=== PATIENT | male | born 1945 | race Caucasian/White ===

== ENCOUNTER 2020-07-15 13:40 | Observation (INO) | payer MEDICARE, BC ==
--- NOTE | 2020-07-15 14:16 | EDM.PDOC ---
ED HPI GENERAL MEDICAL PROBLEM - General Chief Complaint: General Stated Complaint: fall Time Seen by Provider: 07/15/20 13:58 Source of Information: Reports: EMS - History of Present Illness INITIAL COMMENTS - FREE TEXT/NARRATIVE: Pt states that he took his short acting insulin this morning and then he didn't eat as he became busy. He later drank a glass of juice. He then became weak and sat down and called his daughter to bring him a malt. He admits that he doesn't eat well. Daughter then called EMS. He denies falling. BS on scene was 53 when they arrived after drinking malt. glucose given and BS was 77. He does have long history of diabetes and cardiomyopathy. He denies any chest pain. When I arrived he states that he feels "great" Blood sugar now is 110. Heart rate is slightly tachycardia which he states is normal for him. Onset: Today Location: Reports: Generalized - Related Data Allergies Allergy/AdvReac Type Severity Reaction Status Date / Time propoxyphene HCl Allergy Cannot Verified 07/15/20 13:48 [From Angela] Remember Home Meds: Home Meds Allopurinol [Zyloprim] 100 mg PO DAILY 04/09/15 [History] Aspirin [Halfprin] 81 mg PO DAILY 04/09/15 [History] Carvedilol [Coreg] 25 mg PO BID 04/09/15 [History] Furosemide [Lasix] 40 mg PO DAILY 04/09/15 [History] Levothyroxine [Synthroid] 50 mcg PO DAILY 04/09/15 [History] Liraglutide [Victoza] 1.8 mg SUBCUT DAILY 04/09/15 [History] atorvaSTATin [Lipitor] 10 mg PO DAILY 04/09/15 [History] Benazepril/Hydrochlorothiazide [Lotensin Hct 20-25 mg Tablet] 0.5 tab PO DAILY 07/15/20 [History] Insulin Aspart [NovoLOG] 33 units SQ TIDMEALS 07/15/20 [History] Insulin Degludec [Tresiba] 80 mg SQ BEDTIME 07/15/20 [History] Past Medical History HEENT History: Reports: Impaired Vision Cardiovascular History: Reports: Cardiomyopathy, High Cholesterol, Hypertension Endocrine/Metabolic History: Reports: Diabetes, Type II, Hypothyroidism - Past Surgical History GI Surgical History: Reports: Hernia, Inguinal Social & Family History - Tobacco Use Smoking Status *Q: Never Smoker Second Hand Smoke Exposure: No - Caffeine Use Caffeine Use: Reports: Soda - Recreational Drug Use Recreational Drug Use: No - Living Situation & Occupation Living situation: Reports: , Alone Occupation: Retired ED ROS GENERAL - Review of Systems Review Of Systems: See Below Constitutional: Denies: Fever, Chills HEENT: Reports: No Symptoms Respiratory: Reports: No Symptoms Cardiovascular: Reports: No Symptoms GI/Abdominal: Reports: No Symptoms Musculoskeletal: Reports: No Symptoms Skin: Reports: No Symptoms Neurological: Reports: No Symptoms ED EXAM, GENERAL - Physical Exam Exam: See Below Exam Limited By: No Limitations General Appearance: Alert, WD/WN, No Apparent Distress Ears: Normal External Exam, Normal TMs Throat/Mouth: Normal Inspection, Normal Oropharynx Head: Atraumatic, Normocephalic Neck: Normal Inspection, Supple, Non-Tender Respiratory/Chest: No Respiratory Distress, Lungs Clear Cardiovascular: Regular Rate, Rhythm GI/Abdominal: Normal Bowel Sounds, Soft, Non-Tender Extremities: Normal Inspection, Normal Range of Motion Neurological: Alert, Oriented Skin Exam: Warm, Dry, Intact Course - Vital Signs Last Recorded V/S: Last Vital Signs Temp 97.7 F 07/15/20 13:44 Pulse 128 H 07/15/20 13:44 Resp 18 07/15/20 13:44 BP 102/58 L 07/15/20 13:44 Pulse Ox 93 L 07/15/20 13:44 - Orders/Labs/Meds Orders: Active Orders 24 hr Category Date Time Status C-REACTIVE PROTEIN [CHEM] Stat Lab 07/15/20 13:58 Received COMPREHENSIVE METABOLIC PN,CMP [CHEM] Stat Lab 07/15/20 13:58 Received CREATINE KINASE,CK [CHEM] Stat Lab 07/15/20 13:58 Received LACTATE DEHYDROGENASE,LDH [CHEM] Stat Lab 07/15/20 13:58 Received TROPONIN I [CHEM] Stat Lab 07/15/20 13:58 Received Labs: Laboratory Tests 07/15/20 Range/Units 13:58 WBC 11.7 H (5.0-10.0) 10^3/uL RBC 3.84 L (4.50-6.00) 10^6/uL Hgb 12.7 L (14.0-18.0) g/dL Hct 37.5 L (40.0-54.0) % MCV 97.7 H (82.0-94.0) fL MCH 33.1 H (27.0-32.0) pg MCHC 33.9 (33.0-38.0) g/dL RDW Coeff of Treva 15.0 (11.0-15.0) % Plt Count 152 (150-400) 10^3/uL Neut % (Auto) 71.6 (35-85) % Lymph % (Auto) 16.2 (10-55) % [place] % (Auto) 11.1 (0-16) % Eos % (Auto) 0.8 (0-5) % Baso % (Auto) 0.3 (0-3) % Neut # (Auto) 8.35 H (1.80-7.00) 10^3/uL Lymph # (Auto) 1.89 (1.00-4.80) 10^3/uL [place] # (Auto) 1.29 H (0.00-0.80) 10^3/uL Eos # (Auto) 0.09 (0.00-0.45) 10^3/uL Baso # (Auto) 0.03 10^3/uL - Re-Assessments/Exams Free Text/Narrative Re-Assessment/Exam: 07/15/20 14:[address] Augustin and he agrees with admit and above orders. Discussed labs with pt and he voices agreement with admission discussed pt with daughter and she states that he has not been eating well all week and has continued to take his insulin. States that this has been an ongoing issue that when they take him food he doesn't eat it. Departure - Departure Time of Disposition: 14:43 Disposition: Refer to Observation Condition: Fair Clinical Impression: Hypoglycemia due to insulin, Acute renal insufficiency - Discharge Information *PRESCRIPTION DRUG MONITORING PROGRAM REVIEWED*: Not Applicable *COPY OF PRESCRIPTION DRUG MONITORING REPORT IN PATIENT ELISABETH: Not Applicable Additional Instructions: consider meals on wheels to help with better diet when discharged. Sepsis Event Note (ED) - Evaluation Sepsis Screening Result: No Definite Risk - Focused Exam Vital Signs: Vital Signs Temp Pulse Resp BP Pulse Ox 07/15/20 13:44 97.7 F 128 H 18 102/58 L 93 L - Problem List & Annotations (1) Hypoglycemia due to insulin SNOMED Code(s): 670915393 Code(s): E16.0 - DRUG-INDUCED HYPOGLYCEMIA WITHOUT COMA; T38.3X5A - ADVERSE EFFECT OF INSULIN AND ORAL HYPOGLYCEMIC DRUGS, INIT Status: Acute Priority: High Current Visit: Yes (2) Acute renal insufficiency SNOMED Code(s): 159746920 Code(s): N28.9 - DISORDER OF KIDNEY AND URETER, UNSPECIFIED Status: Acute Priority: High Current Visit: Yes - Problem List Review Problem List Initiated/Reviewed/Updated: Yes - My Orders Last 24 Hours: My Active Orders 07/15/20 13:58 C-REACTIVE PROTEIN [CHEM] Stat COMPREHENSIVE METABOLIC PN,CMP [CHEM] Stat CREATINE KINASE,CK [CHEM] Stat LACTATE DEHYDROGENASE,LDH [CHEM] Stat TROPONIN I [CHEM] Stat - Assessment/Plan Admission H&P: Please use this note as an admission H&P Last 24 Hours: My Active Orders 07/15/20 13:58 C-REACTIVE PROTEIN [CHEM] Stat COMPREHENSIVE METABOLIC PN,CMP [CHEM] Stat CREATINE KINASE,CK [CHEM] Stat LACTATE DEHYDROGENASE,LDH [CHEM] Stat TROPONIN I [CHEM] Stat
[2020-07-15] MEDS ORDERED: Sodium Chloride 0.9% 1,000 ML IV SCH (14:45)
[2020-07-15] MEDS ORDERED: Sodium Chloride 0.9% 10 ML Syringe FLUSH PRN (14:45)
[2020-07-15] MEDS ORDERED: Enoxaparin 30 MG/0.3 ML Syringe SUBCUT SCH ×2 (14:45→20:00)
[2020-07-15] MEDS ORDERED: Acetaminophen 500 MG Tab PO PRN (16:07)
[2020-07-15] MEDS ORDERED: Dextrose 5%-0.45% NaCl 1,000 ML IV SCH (16:15)
[2020-07-15] MEDS ORDERED: INSULIN ASPART SQ SCH ×2 (17:30)
[2020-07-15] MEDS ORDERED: Insulin Lispro 100 Units/ML 3 ML Vial SUBCUT SCH (18:15)
[2020-07-15] MEDS ORDERED: CARVEDILOL 25 MG PO SCH (20:00)
[2020-07-15] MEDS ORDERED: INSULIN DEGLUDEC SQ SCH ×2 (20:00)
[2020-07-15] MEDS: CARVEDILOL 25 MG PO SCH (20:52)
[2020-07-16] MEDS ORDERED: 50% Dextrose in Water 50 ML Syringe IVPUSH ONE (07:35)
[2020-07-16] MEDS ORDERED: Sodium Chloride 0.9% 250 ML IV SCH (07:45)
[2020-07-16] MEDS ORDERED: Allopurinol 100 MG Tab **PT OWN MED PO SCH ×2 (08:00)
[2020-07-16] MEDS ORDERED: Levothyroxine 50 MCG Tab PO SCH (08:00)
[2020-07-16] MEDS ORDERED: Furosemide 20 MG Tab PO SCH (08:00)
[2020-07-16] MEDS ORDERED: Non-Formulary Medication 1 Each (Benazepril/Hydrochlorothiazide [Lotensin Hct 20-25 Mg Tab PO SCH (08:00)
[2020-07-16] MEDS ORDERED: LEVOTHYROXINE 50 MCG PO SCH (08:00)
[2020-07-16] MEDS ORDERED: Insulin Lispro 100 Units/ML 3 ML Vial SUBCUT SCH (08:00)
[2020-07-16] MEDS ORDERED: LIRAGLUTIDE SUBCUT SCH (08:00)
[2020-07-16] MEDS ORDERED: Aspirin 81 MG Tab.EC PO SCH ×2 (08:00→10:15)
[2020-07-16] MEDS ORDERED: Non-Formulary Medication 1 Each (Liraglutide [Victoza] 1.8 MG) SUBCUT SCH (08:00)
[2020-07-16] MEDS ORDERED: ATORVASTATIN 10 MG PO SCH ×3 (08:00→10:15)
[2020-07-16] MEDS ORDERED: FUROSEMIDE 40 MG PO SCH (08:00)
[2020-07-16 09:37] VITALS: BP 80/60; PULSE 125
[2020-07-16] MEDS: CARVEDILOL 25 MG PO SCH (10:00)
--- NOTE | 2020-07-16 13:10 | PCM.DCSUM1 ---
Discharge Summary - Hospital Course Free Text/Narrative:: Anton is 74 year old male who presented to ER with hypoglycemia. Patient had called his daughter as he noted a low blood sugar and wanted her to bring him a malt. Did drink it but blood sugar only improved to 57 so daughter called EMS. Patient as weak but upon time of arrival to ER, was feeling better. History of cardiomyopathy and diabetes. Tachycardic on arrival but patient had related that it "was normal for him". Was given glucagon per EMS and blood sugar was 110 on arrival. Family related that he had been taking his insulin all week and not eating well. Labs in ER noted high creatinine of 3.6, BUN 75. WBC mildly elevated 11.7. CRP 7.0. Admitted and started on IV fluids. Diagnosis: Stroke: No Modified [place] Scale: No Symptoms at All Modified Jacquie Scale Score: 0 - Discharge Data Discharge Date: 07/16/20 Discharge Disposition: DC/Tfer to Acute Hospital 02 Condition: Fair - Referral to Home Health Primary Care Physician: Jose Raul Augustin MD - Patient Summary/Data Complications: none Hospital Course: Patient feeling fair this am. Does admit to feeling short of breath with minimal exertion. Blood pressure has been running low since admission. Tachycardia persisted through the night. Was initially given IV fluid bolus and then it was reduced to 50 ml/hr. Oxygen sats have remained greater than 90% on room air. [place] [address]. This am, creatinine had worsened 3.9, [place] [address]. Contacted [facility] due to concerns with cardiogenic shock. Spoke with hospitalist and hoop maker. agreed to accept the patient in transfer. Patient in agreement with transfer. - Patient Instructions Diet: Diabetic Diet Activity: As Tolerated Other/Special Instructions: Transfer to [facility], Dr. Bryan - Discharge Plan *PRESCRIPTION DRUG MONITORING PROGRAM REVIEWED*: Not Applicable *COPY OF PRESCRIPTION DRUG MONITORING REPORT IN PATIENT ELISABETH: Not Applicable Home Medications: Home Meds Allopurinol [Zyloprim] 100 mg PO DAILY 04/09/15 [History] Aspirin [Halfprin] 81 mg PO DAILY 04/09/15 [History] Carvedilol [Coreg] 25 mg PO BID 04/09/15 [History] Furosemide [Lasix] 40 mg PO DAILY 04/09/15 [History] Levothyroxine [Synthroid] 50 mcg PO DAILY 04/09/15 [History] Liraglutide [Victoza] 1.8 mg SUBCUT DAILY 04/09/15 [History] atorvaSTATin [Lipitor] 10 mg PO DAILY 04/09/15 [History] Benazepril/Hydrochlorothiazide [Lotensin Hct 20-25 mg Tablet] 0.5 tab PO DAILY 07/15/20 [History] DULoxetine [Cymbalta] 30 mg PO DAILY 07/15/20 [History] Insulin Aspart [NovoLOG] 33 units SQ TIDMEALS 07/15/20 [History] Insulin Degludec [Tresiba] 80 mg SQ BEDTIME 07/15/20 [History] Losartan Potassium 25 mg PO DAILY 07/15/20 [History] Spironolactone [Aldactone] 25 mg PO DAILY 07/15/20 [History] Forms: ED Department Discharge Referrals: Jose Raul Augustin MD [Primary Care Provider] - - Discharge Summary/Plan Comment DC Time >30 min.: Yes Discharge Summary/Plan Comment: Discharge to [facility] Time for transfer agreement 20 minute Time with patient 10 minutes Time with transfer paperwork and documentation 10 minutes - General Info Date of Service: 07/19/20 Admission Dx/Problem (Free Text: Hypoglycemia Acute Kidney Injury Functional Status: Reports: Pain Controlled, Tolerating Diet, Ambulating - Review of Systems General: Reports: Weakness, Fatigue, Malaise HEENT: Reports: No Symptoms Pulmonary: Reports: Shortness of Breath. Denies: Cough Cardiovascular: Reports: Edema. Denies: Chest Pain, Lightheadedness Gastrointestinal: Reports: No Symptoms Genitourinary: Reports: No Symptoms Musculoskeletal: Reports: No Symptoms Skin: Reports: No Symptoms Neurological: Reports: Weakness - Patient Data Vitals - Most Recent: Last Vital Signs Temp 96.5 F L 07/16/20 08:00 Pulse 125 H 07/16/20 08:00 Resp 20 07/16/20 08:00 BP 80/60 L 07/16/20 08:00 Pulse Ox 94 L 07/16/20 08:00 Weight - Most Recent: 264 lb 6.4 oz I&O - Last 24 hours: Intake & Output 07/15/20 07/16/20 07/16/20 22:59 06:59 14:59 Intake Total 900 Output Total 200 Balance 900 -200 Lab Results - Last 24 hrs: Laboratory Results - last 24 hr 07/15/20 07/15/20 07/15/20 Range/Units 13:58 13:58 17:20 WBC 11.7 H (5.0-10.0) 10^3/uL RBC 3.84 L (4.50-6.00) 10^6/uL Hgb 12.7 L (14.0-18.0) g/dL Hct 37.5 L (40.0-54.0) % MCV 97.7 H (82.0-94.0) fL MCH 33.1 H (27.0-32.0) pg MCHC 33.9 (33.0-38.0) g/dL RDW Coeff of Treva 15.0 (11.0-15.0) % Plt Count 152 (150-400) 10^3/uL Neut % (Auto) 71.6 (35-85) % Lymph % (Auto) 16.2 (10-55) % [place] % (Auto) 11.1 (0-16) % Eos % (Auto) 0.8 (0-5) % Baso % (Auto) 0.3 (0-3) % Neut # (Auto) 8.35 H (1.80-7.00) 10^3/uL Lymph # (Auto) 1.89 (1.00-4.80) 10^3/uL [place] # (Auto) 1.29 H (0.00-0.80) 10^3/uL Eos # (Auto) 0.09 (0.00-0.45) 10^3/uL Baso # (Auto) 0.03 10^3/uL Sodium 134 L (136-145) mEq/L Potassium 4.4 (3.5-5.0) mEq/L Chloride 98 (98-106) mEq/L Carbon Dioxide 27 (21-32) mmol/L BUN 75 H* D (7-18) mg/dL Creatinine 3.6 H* D (0.7-1.3) mg/dL Est Cr Clr Drug Dosing 18.31 mL/min Estimated GFR (MDRD) 17 L (>=60) mL/min Glucose 79 (75-99) mg/dL POC Glucose 131 H (75-105) mg/dl Calcium 8.5 (8.4-10.1) mg/dL Total Bilirubin 1.0 (0.0-1.0) mg/dL AST 29 (15-37) U/L ALT 21 (12-78) U/L Alkaline Phosphatase 104 (46-116) U/L Lactate Dehydrogenase 205 H (100-190) U/L Creatine Kinase 50 (35-232) U/L Troponin I 0.282 H (0.00-0.06) ng/mL C-Reactive Protein 7.0 H (0.2-0.8) mg/dL NT-Pro-B Natriuret Pep (0-1000) pg/mL Total Protein 7.0 (6.4-8.2) g/dL Albumin 2.5 L (3.4-5.0) g/dL TSH, Ultra Sensitive (0.36-5.60) uIU/mL Urine Color (YELLOW) Urine Appearance (CLEAR) Urine pH (4.5-8.0) Ur Specific [place] (1.003-1.020) Urine Protein (NEGATIVE) mg/dL Urine Glucose (UA) (NEGATIVE) mg/dL Urine Ketones (NEGATIVE) mg/dL Urine Occult Blood (NEGATIVE) Urine Nitrite (NEGATIVE) Urine Bilirubin (NEGATIVE) Urine Urobilinogen (0.2-1.0) EU/dL Ur Leukocyte Esterase (NEGATIVE) Urine RBC (0-5) /HPF Urine WBC (0-5) /HPF 07/15/20 07/15/20 07/16/20 Range/Units 17:30 19:31 05:11 WBC 11.4 H (5.0-10.0) 10^3/uL RBC 4.02 L (4.50-6.00) 10^6/uL Hgb 13.0 L (14.0-18.0) g/dL Hct 39.1 L (40.0-54.0) % MCV 97.3 H (82.0-94.0) fL MCH 32.3 H (27.0-32.0) pg MCHC 33.2 (33.0-38.0) g/dL RDW Coeff of Treva 15.1 H (11.0-15.0) % Plt Count 182 (150-400) 10^3/uL Neut % (Auto) 66.5 (35-85) % Lymph % (Auto) 20.9 (10-55) % [place] % (Auto) 11.8 (0-16) % Eos % (Auto) 0.7 (0-5) % Baso % (Auto) 0.1 (0-3) % Neut # (Auto) 7.58 H (1.80-7.00) 10^3/uL Lymph # (Auto) 2.38 (1.00-4.80) 10^3/uL [place] # (Auto) 1.34 H (0.00-0.80) 10^3/uL Eos # (Auto) 0.08 (0.00-0.45) 10^3/uL Baso # (Auto) 0.01 10^3/uL Sodium (136-145) mEq/L Potassium (3.5-5.0) mEq/L Chloride (98-106) mEq/L Carbon Dioxide (21-32) mmol/L BUN (7-18) mg/dL Creatinine (0.7-1.3) mg/dL Est Cr Clr Drug Dosing mL/min Estimated GFR (MDRD) (>=60) mL/min Glucose (75-99) mg/dL POC Glucose 181 H (75-105) mg/dl Calcium (8.4-10.1) mg/dL Total Bilirubin (0.0-1.0) mg/dL AST (15-37) U/L ALT (12-78) U/L Alkaline Phosphatase (46-116) U/L Lactate Dehydrogenase 200 H (100-190) U/L Creatine Kinase 53 (35-232) U/L Troponin I 0.287 H (0.00-0.06) ng/mL C-Reactive Protein (0.2-0.8) mg/dL NT-Pro-B Natriuret Pep 40458 H (0-1000) pg/mL Total Protein (6.4-8.2) g/dL Albumin (3.4-5.0) g/dL TSH, Ultra Sensitive (0.36-5.60) uIU/mL Urine Color (YELLOW) Urine Appearance (CLEAR) Urine pH (4.5-8.0) Ur Specific [place] (1.003-1.020) Urine Protein (NEGATIVE) mg/dL Urine Glucose (UA) (NEGATIVE) mg/dL Urine Ketones (NEGATIVE) mg/dL Urine Occult Blood (NEGATIVE) Urine Nitrite (NEGATIVE) Urine Bilirubin (NEGATIVE) Urine Urobilinogen (0.2-1.0) EU/dL Ur Leukocyte Esterase (NEGATIVE) Urine RBC (0-5) /HPF Urine WBC (0-5) /HPF 07/16/20 07/16/20 07/16/20 Range/Units 05:11 06:46 07:14 WBC (5.0-10.0) 10^3/uL RBC (4.50-6.00) 10^6/uL Hgb (14.0-18.0) g/dL Hct (40.0-54.0) % MCV (82.0-94.0) fL MCH (27.0-32.0) pg MCHC (33.0-38.0) g/dL RDW Coeff of Treva (11.0-15.0) % Plt Count (150-400) 10^3/uL Neut % (Auto) (35-85) % Lymph % (Auto) (10-55) % [place] % (Auto) (0-16) % Eos % (Auto) (0-5) % Baso % (Auto) (0-3) % Neut # (Auto) (1.80-7.00) 10^3/uL Lymph # (Auto) (1.00-4.80) 10^3/uL [place] # (Auto) (0.00-0.80) 10^3/uL Eos # (Auto) (0.00-0.45) 10^3/uL Baso # (Auto) 10^3/uL Sodium 131 L (136-145) mEq/L Potassium 4.5 (3.5-5.0) mEq/L Chloride 97 L (98-106) mEq/L Carbon Dioxide 25 (21-32) mmol/L BUN 80 H* (7-18) mg/dL Creatinine 3.9 H* (0.7-1.3) mg/dL Est Cr Clr Drug Dosing 16.90 mL/min Estimated GFR (MDRD) 15 L (>=60) mL/min Glucose 46 L D (75-99) mg/dL POC Glucose 47 L* 57 L (75-105) mg/dl Calcium 8.2 L (8.4-10.1) mg/dL Total Bilirubin (0.0-1.0) mg/dL AST (15-37) U/L ALT (12-78) U/L Alkaline Phosphatase (46-116) U/L Lactate Dehydrogenase 261 H (100-190) U/L Creatine Kinase 62 (35-232) U/L Troponin I 0.274 H (0.00-0.06) ng/mL C-Reactive Protein (0.2-0.8) mg/dL NT-Pro-B Natriuret Pep 99961 H (0-1000) pg/mL Total Protein (6.4-8.2) g/dL Albumin (3.4-5.0) g/dL TSH, Ultra Sensitive 1.50 (0.36-5.60) uIU/mL Urine Color (YELLOW) Urine Appearance (CLEAR) Urine pH (4.5-8.0) Ur Specific [place] (1.003-1.020) Urine Protein (NEGATIVE) mg/dL Urine Glucose (UA) (NEGATIVE) mg/dL Urine Ketones (NEGATIVE) mg/dL Urine Occult Blood (NEGATIVE) Urine Nitrite (NEGATIVE) Urine Bilirubin (NEGATIVE) Urine Urobilinogen (0.2-1.0) EU/dL Ur Leukocyte Esterase (NEGATIVE) Urine RBC (0-5) /HPF Urine WBC (0-5) /HPF 07/16/20 07/16/20 07/16/20 Range/Units 07:55 08:03 10:07 WBC (5.0-10.0) 10^3/uL RBC (4.50-6.00) 10^6/uL Hgb (14.0-18.0) g/dL Hct (40.0-54.0) % MCV (82.0-94.0) fL MCH (27.0-32.0) pg MCHC (33.0-38.0) g/dL RDW Coeff of Treva (11.0-15.0) % Plt Count (150-400) 10^3/uL Neut % (Auto) (35-85) % Lymph % (Auto) (10-55) % [place] % (Auto) (0-16) % Eos % (Auto) (0-5) % Baso % (Auto) (0-3) % Neut # (Auto) (1.80-7.00) 10^3/uL Lymph # (Auto) (1.00-4.80) 10^3/uL [place] # (Auto) (0.00-0.80) 10^3/uL Eos # (Auto) (0.00-0.45) 10^3/uL Baso # (Auto) 10^3/uL Sodium (136-145) mEq/L Potassium (3.5-5.0) mEq/L Chloride (98-106) mEq/L Carbon Dioxide (21-32) mmol/L BUN (7-18) mg/dL Creatinine (0.7-1.3) mg/dL Est Cr Clr Drug Dosing mL/min Estimated GFR (MDRD) (>=60) mL/min Glucose (75-99) mg/dL POC Glucose 98 139 H (75-105) mg/dl Calcium (8.4-10.1) mg/dL Total Bilirubin (0.0-1.0) mg/dL AST (15-37) U/L ALT (12-78) U/L Alkaline Phosphatase (46-116) U/L Lactate Dehydrogenase (100-190) U/L Creatine Kinase (35-232) U/L Troponin I (0.00-0.06) ng/mL C-Reactive Protein (0.2-0.8) mg/dL NT-Pro-B Natriuret Pep (0-1000) pg/mL Total Protein (6.4-8.2) g/dL Albumin (3.4-5.0) g/dL TSH, Ultra Sensitive (0.36-5.60) uIU/mL Urine Color Yellow (YELLOW) Urine Appearance Clear (CLEAR) Urine pH 5.0 (4.5-8.0) Ur Specific [place] 1.025 H (1.003-1.020) Urine Protein Trace H (NEGATIVE) mg/dL Urine Glucose (UA) Negative (NEGATIVE) mg/dL Urine Ketones Negative (NEGATIVE) mg/dL Urine Occult Blood Negative (NEGATIVE) Urine Nitrite Negative (NEGATIVE) Urine Bilirubin Negative (NEGATIVE) Urine Urobilinogen 0.2 (0.2-1.0) EU/dL Ur Leukocyte Esterase Negative (NEGATIVE) Urine RBC Not seen (0-5) /HPF Urine WBC Not seen (0-5) /HPF Med Orders - Current: Current Medications Discontinued Medications Acetaminophen (Tylenol Extra Strength) 1,000 mg PO Q6H PRN PRN Reason: Pain Last Admin: 07/15/20 16:15 Dose: 1,000 mg Documented by: Allopurinol (Zyloprim) 100 mg PO DAILY [facility] Aspirin (Halfprin) 81 mg PO DAILY [facility] Last Admin: 07/16/20 09:59 Dose: 81 mg Documented by: Aspirin (Halfprin) 81 mg PO DAILY [facility] Last Admin: 07/16/20 10:37 Dose: 81 mg Documented by: Atorvastatin Calcium (Lipitor) 10 mg PO DAILY [facility] Atorvastatin Calcium (Lipitor) 10 mg PO DAILY [facility] Last Admin: 07/16/20 10:00 Dose: 10 mg Documented by: Atorvastatin Calcium (Lipitor) 10 mg PO DAILY [facility] Last Admin: 07/16/20 10:37 Dose: 10 mg Documented by: Dextrose/Water (Dextrose 50% In Water) 50 ml IVPUSH ONETIME ONE Stop: 07/16/20 07:36 Last Admin: 07/16/20 07:56 Dose: 50 ml Documented by: Enoxaparin Sodium (Lovenox) 30 mg SUBCUT Q24H [facility] Last Admin: 07/15/20 19:07 Dose: Not Given Documented by: Enoxaparin Sodium (Lovenox) 30 mg SUBCUT Q24H [facility] Last Admin: 07/15/20 20:52 Dose: 30 mg Documented by: Furosemide (Lasix) 40 mg PO DAILY [facility] Sodium Chloride (Normal Saline) 1,000 mls @ 350 mls/hr IV ASDIRECTED [facility] Dextrose/Sodium Chloride (Dextrose 5%-1/2 Ns) 1,000 mls @ 50 mls/hr IV ASDIRECTED [facility] Last Admin: 07/15/20 16:44 Dose: 100 mls/hr Documented by: Sodium Chloride (Normal Saline) 250 mls @ 999 mls/hr IV ASDIRECTED [facility] Stop: 07/16/20 08:01 Last Admin: 07/16/20 07:56 Dose: 999 mls/hr Documented by: Insulin Human Lispro (Humalog) 33 unit SUBCUT TIDMEALS [facility] Last Admin: 07/15/20 18:12 Dose: 33 units Documented by: Insulin Human Lispro (Humalog) 0 unit SUBCUT TIDMEALS [facility]; Protocol Last Admin: 07/16/20 10:00 Dose: Not Given Documented by: Levothyroxine Sodium (Synthroid) 50 mcg PO DAILY [facility] Non-Formulary Medication (Benazepril/Hydrochlorothiazide [Lotensin Hct 20-25 Mg Tablet]) 0.5 tab PO DAILY [facility] Carvedilol [Coreg] (25 Mg Ptom) 0 mg PO BID [facility] Non-Formulary Medication (Insulin Aspart [Novolog]) 33 units SQ TIDMEALS [facility] Non-Formulary Medication (Insulin Degludec [Tresiba]) 80 mg SQ BEDTIME [facility] Non-Formulary Medication (Liraglutide [Victoza]) 1.8 mg SUBCUT DAILY [facility] Allopurinol 100 Mg (Tab Pt Own Med) 0 each PO DAILY [facility] Furosemide 40mg Tab (Ptom) 0 each PO DAILY [facility] Last Admin: 07/16/20 10:02 Dose: Not Given Documented by: Carvedilol [Coreg] (25 Mg Ptom) 0 mg PO BID [facility] Last Admin: 07/16/20 10:00 Dose: Not Given Documented by: Levothyroxine 50 Mcg (Tab Ptom) 0 each PO DAILY [facility] Last Admin: 07/16/20 10:00 Dose: 1 each Documented by: Insulin Aspart [ Novolog] 33 Units Ptom 0 units SQ TIDMEALS [facility] Last Admin: 07/15/20 19:07 Dose: Not Given Documented by: Non-Formulary Medication (Liraglutide [Victoza]) 0 mg SUBCUT DAILY [facility] Last Admin: 07/16/20 10:01 Dose: Not Given Documented by: Insulin Degludec [ Tresiba] 80 Mg Ptom 0 mg SQ BEDTIME [facility] Last Admin: 07/15/20 20:49 Dose: Not Given Documented by: Levothyroxine 50 Mcg (Tab Ptom) 0 each PO DAILY [facility] Last Admin: 07/16/20 10:38 Dose: 50 each Documented by: Sodium Chloride (Saline Flush) 10 ml FLUSH ASDIRECTED PRN PRN Reason: Keep Vein Open - Exam General: Reports: Alert, Oriented HEENT: Reports: Mucous Membr. Moist/[place] Neck: Reports: Supple Lungs: Reports: Decreased Breath Sounds Cardiovascular: Reports: Regular Rate, Regular Rhythm GI/Abdominal Exam: Normal Bowel Sounds, Soft, Non-Tender Extremities: Normal Inspection Skin: Reports: Warm, Dry Neurological: Reports: No New Focal Deficit
[2020-07-17] MEDS ORDERED: LEVOTHYROXINE 50 MCG PO SCH (08:00)
== END 2020-07-16 10:45 ==
LOC: CC.ED 13:40 → CC.MS 14:40 → UNDOADMOB 14:40 → CC.MS 14:45
PROVIDERS: ADMIT Physician Assistant Medical; ATTEND Family Medicine
DX: E11.649 Type 2 diabetes mellitus with hypoglycemia without coma (principal); T38.3X5A Adverse effect of insulin and oral hypoglycemic [antidiabetic] drugs, initial encounter; N28.9 Disorder of kidney and ureter, unspecified; E03.9 Hypothyroidism, unspecified; E78.00 Pure hypercholesterolemia, unspecified; I10 Essential (primary) hypertension; Z20.828 Contact with and (suspected) exposure to other viral communicable diseases; Z79.890 Hormone replacement therapy; Z79.899 Other long term (current) drug therapy; Z79.4 Long term (current) use of insulin; Z79.82 Long term (current) use of aspirin
CPT/HCPCS: 36415; 51702; 71046; 80048; 80053; 81001; 82550; 82962; 83615; 83880; 84443; 84484; 85025; 86140; 93005; 93306; 99285-25; A9270-GY; J1650; J7042; J7050

== ENCOUNTER 2020-07-29 11:27 | Inpatient (IN) | payer MEDICARE, BC ==
[2020-07-29] MEDS ORDERED: Acetaminophen 325 MG Tab PO PRN (16:51)
--- NOTE | 2020-07-29 17:34 | PCM.HP.2 ---
H&P History of Present Illness - General Date of Service: 07/29/20 Admit Problem/Dx: Admission Diagnosis/Problem Admission Diagnosis/Problem CHF, Congestive heart failure DM s/p stroke CKD Source of Information: Patient, Other (records from [place]) History Limitations: Reports: No Limitations - History of Present Illness Initial Comments - Free Text/Narative: Pt initially was admitted to our facility and then transferred to [facility] and was in CHF, cardiogenic shock. He was intubated at one time and then felt to have a stroke. He has diabetic neuropathy and CKD. He was diuresed while there. He also had new onset a fib with RVR that did not convert with metoprolol so was then cardioverted on the day prior to coming back to [facility] bed. He is currently on amiodarone and digoxin to maintain his NSR. He had difficulty with BS control and has had insulin adjustment and significant decreases in doses. When arriving here he does have an open sore in the left groin. Onset of Symptoms: Reports: Gradual Duration of Symptoms: Reports: Chronic - Related Data Allergies/Adverse Reactions: Allergies Allergy/AdvReac Type Severity Reaction Status Date / Time propoxyphene HCl Allergy Cannot Verified 07/29/20 12:07 [From Angela] Remember Home Medications: Home Meds Allopurinol [Zyloprim] 100 mg PO DAILY 04/09/15 [History] Aspirin [Halfprin] 81 mg PO DAILY 04/09/15 [History] Furosemide [Lasix] 40 mg PO DAILY 04/09/15 [History] Levothyroxine [Synthroid] 50 mcg PO DAILY 04/09/15 [History] Liraglutide [Victoza] 1.8 mg SUBCUT DAILY 04/09/15 [History] atorvaSTATin [Lipitor] 10 mg PO DAILY 04/09/15 [History] Insulin Aspart [NovoLOG] 33 units SQ TIDMEALS 07/15/20 [History] Insulin Degludec [Tresiba] 80 mg SQ BEDTIME 07/15/20 [History] Calcium Carb/D3/Magnesium/Zinc [Negrito Mag Zinc + D3] 1 tab PO DAILY 07/29/20 [History] Cholecalciferol (Vitamin D3) [Vitamin D3] 5,000 unit PO DAILY 07/29/20 [History] Multivitamin [Daily Multiple Vitamin] 1 each PO DAILY 07/29/20 [History] Vitamin E 400 unit PO DAILY 07/29/20 [History] Past Medical History HEENT History: Reports: Impaired Vision Cardiovascular History: Reports: CAD, Cardiomyopathy, High Cholesterol, Hypertension Respiratory History: Reports: SOB Gastrointestinal History: Reports: None Genitourinary History: Reports: Other (See Below) Other Genitourinary History: difficulty with urination Psychiatric History: Reports: None Endocrine/Metabolic History: Reports: Diabetes, Type II, Hypothyroidism Hematologic History: Reports: None Immunologic History: Reports: None - Past Surgical History HEENT Surgical History: Reports: None Cardiovascular Surgical History: Reports: Other (See Below) Other Cardiovascular Surgeries/Procedures: cardioversion on 07/28/20 GI Surgical History: Reports: Hernia, Inguinal Social & Family History - Tobacco Use Smoking Status *Q: Never Smoker - Caffeine Use Caffeine Use: Reports: None - Recreational Drug Use Recreational Drug Use: No - Living Situation & Occupation Living situation: Reports: , Alone Occupation: Retired H&P Review of Systems - Review of Systems: Review Of Systems: See Below General: Reports: Weakness. Denies: Fever, Chills HEENT: Reports: No Symptoms Pulmonary: Reports: Shortness of Breath Cardiovascular: Reports: Edema (has had and he states that it comes and goes.). Denies: Chest Pain Gastrointestinal: Reports: Stool Incontinence. Denies: Abdominal Pain Genitourinary: Reports: Incontinence Musculoskeletal: Reports: Other (uses alex lift at this time.) Skin: Reports: Wound (left groin) Neurological: Reports: Weakness Exam - Exam Exam: See Below - Vital Signs Vital Signs: Last Vital Signs Temp 97.9 F 07/29/20 16:37 Pulse 97 07/29/20 16:37 Resp 18 07/29/20 16:37 BP 121/69 07/29/20 16:37 Pulse Ox 96 07/29/20 16:37 Weight: 252 lb 6.4 oz - Exam General: Alert, Oriented, Cooperative HEENT: Hearing Intact, Pupils Equal, Pupils Reactive Neck: Supple, Trachea Midline Lungs: Clear to Auscultation, Normal Respiratory Effort, Decreased Breath Sounds (to the bases) Cardiovascular: Regular Rhythm, Other (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 No bleeding noted. Culture is obtained.) Neurological: Cranial Nerves Intact Neuro Extensive - Mental Status: Alert, Oriented x3, Normal Mood/Affect, Normal Cognition Neuro Extensive - Motor, Sensory, Reflexes: CN II-XII Intact Psychiatric: Alert, Normal Affect, Normal Mood Sepsis Event Note - Evaluation Sepsis Screening Result: No Definite Risk - Focused Exam Vital Signs: Vital Signs Temp Pulse Resp BP Pulse Ox 07/29/20 16:37 97.9 F 97 18 121/69 96 - Problem List (1) Acute on chronic systolic (congestive) heart failure SNOMED Code(s): 514228924, 020835825 ICD Code: I50.23 - ACUTE ON CHRONIC SYSTOLIC (CONGESTIVE) HEART FAILURE Status: Acute Priority: High Current Visit: Yes (2) Acute on chronic diastolic (congestive) heart failure SNOMED Code(s): 430467429, 124736974 ICD Code: I50.33 - ACUTE ON CHRONIC DIASTOLIC (CONGESTIVE) HEART FAILURE Status: Acute Priority: High Current Visit: Yes (3) Diabetes type 2, uncontrolled SNOMED Code(s): 427008756, 595546764 ICD Code: E11.65 - TYPE 2 DIABETES MELLITUS WITH HYPERGLYCEMIA Status: Chronic Priority: Low Current Visit: Yes Qualifiers: Coma presence: without coma (4) CKD (chronic kidney disease) stage 3, GFR 30-59 ml/min SNOMED Code(s): 304601988 ICD Code: N18.3 - CHRONIC KIDNEY DISEASE, STAGE 3 (MODERATE) Status: Chronic Priority: Medium Current Visit: Yes (5) Gout SNOMED Code(s): 10403261 ICD Code: M10.9 - GOUT, UNSPECIFIED Status: Chronic Priority: Low Current Visit: Yes (6) Depression SNOMED Code(s): 66920010 ICD Code: F32.9 - MAJOR DEPRESSIVE DISORDER, SINGLE EPISODE, UNSPECIFIED Status: Chronic Priority: Low Current Visit: Yes (7) Hypothyroidism SNOMED Code(s): 25736366 ICD Code: E03.9 - HYPOTHYROIDISM, UNSPECIFIED Status: Chronic Priority: L ow Current Visit: Yes (8) Hyperlipidemia SNOMED Code(s): 63526266 ICD Code: E78.5 - HYPERLIPIDEMIA, UNSPECIFIED Status: Chronic Priority: Low Current Visit: Yes (9) CAD (coronary artery disease) SNOMED Code(s): 10367746 ICD Code: I25.10 - ATHSCL HEART DISEASE OF [place] CORONARY ARTERY W/O ANG PCTRS Status: Chronic Priority: Medium Current Visit: Yes Problem List Initiated/Reviewed/Updated: Yes Orders Last 24hrs: Active Orders 24 hr Category Date Time Status Patient Status [ADT] Routine ADT 07/29/20 16:37 Active Blood Glucose Check, Bedside [RC] 0730,1130,1700,2100 Care 07/29/20 16:37 Active Cardiac Monitoring [RC] 08,1999 Care 07/29/20 16:39 Active Height and Weight [RC] 0500 Care 07/29/20 16:37 Active Oxygen Therapy [RC] .PRN Care 07/29/20 16:37 Active Up With Assistance [RC] .PRN Care 07/29/20 16:37 Active Up to Chair [RC] .PRN Care 07/29/20 16:37 Active Vital Signs [RC] 08,1999 Care 07/29/20 16:37 Active PT Evaluation and Treatment [CONS] Routine Cons 07/29/20 16:37 Active Consistent Carbohydrate Diet [DIET] Diet 07/29/20 Dinner Active CBC WITH AUTO DIFF [HEME] AM Lab 07/30/20 05:11 Ordered COMPREHENSIVE METABOLIC PN,CMP [CHEM] AM Lab 07/30/20 05:11 Ordered CULTURE WOUND [RM] Stat Lab 07/29/20 16:58 Received Acetaminophen [TylenoL] Med 07/29/20 16:51 Ordered 650 mg PO Q4H PRN Amiodarone [Cordarone] Med 07/30/20 08:00 Ordered 200 mg PO DAILY Apixaban [Eliquis] Med 07/29/20 20:00 Ordered 5 mg PO BID Aspirin [Halfprin] Med 07/30/20 08:00 Ordered 81 mg PO DAILY Digoxin [Lanoxin] Med 07/30/20 12:00 Ordered 125 mcg PO DAILY@1200 Furosemide [Lasix] Med 07/30/20 08:00 Ordered 40 mg PO DAILY Insulin Glarg,Human.Rec.Analog [LantUS] Med 07/29/20 20:00 Ordered 5 unit SUBCUT BID Insulin Lispro [HumaLOG] Med 07/29/20 17:30 Ordered See Protocol SUBCUT TIDMEALS Levothyroxine [Synthroid] Med 07/30/20 08:00 Ordered 50 mcg PO DAILY allopurinoL [Zyloprim] Med 07/30/20 08:00 Ordered 100 mg PO DAILY atorvaSTATin [Lipitor] Med 07/30/20 08:00 Ordered 10 mg PO DAILY Resuscitation Status Routine Resus Stat 07/29/20 16:37 Ordered Medication Orders Acetaminophen (Tylenol) 650 mg PO Q4H PRN PRN Reason: Pain Allopurinol (Zyloprim) 100 mg PO DAILY MINO Amiodarone HCl (Cordarone) 200 mg PO DAILY MINO Apixaban (Eliquis) 5 mg PO BID MINO Aspirin (Halfprin) 81 mg PO DAILY MINO Atorvastatin Calcium (Lipitor) 10 mg PO DAILY MINO Digoxin (Lanoxin) 125 mcg PO DAILY@1200 MINO Furosemide (Lasix) 40 mg PO DAILY MINO Insulin Glargine (Lantus) 5 unit SUBCUT BID MINO Insulin Human Lispro (Humalog) 0 unit SUBCUT TIDMEALS MINO; Protocol Levothyroxine Sodium (Synthroid) 50 mcg PO DAILY MINO Assessment/Plan Comment:: plan to admit to swing bed and PT for strengthening.
[2020-07-29] MEDS: Insulin Lispro 100 Units/ML 3 ML Vial SUBCUT SCH (17:51)
[2020-07-29] MEDS: Insulin Glarg,Human.Rec.Analog 100 Unit/ML SUBCUT SCH (20:03)
[2020-07-29] MEDS: Apixaban 5 MG Tab PO SCH (20:03)
[2020-07-30] MEDS: atorvaSTATin 10 MG Tab PO SCH (07:35)
[2020-07-30] MEDS: Aspirin 81 MG Tab.EC PO SCH (07:35)
[2020-07-30] MEDS: Furosemide 40 MG Tab PO SCH (07:36)
[2020-07-30] MEDS: Levothyroxine 50 MCG Tab PO SCH (07:36)
[2020-07-30] MEDS: Apixaban 5 MG Tab PO SCH ×2 (07:36→19:47)
[2020-07-30] MEDS: Allopurinol 100 MG Tab PO SCH (07:36)
[2020-07-30] MEDS: Amiodarone 200 MG Tab PO SCH (07:36)
[2020-07-30] MEDS: Insulin Glarg,Human.Rec.Analog 100 Unit/ML SUBCUT SCH ×2 (08:07→19:56)
[2020-07-30] MEDS: Insulin Lispro 100 Units/ML 3 ML Vial SUBCUT SCH ×3 (08:09→17:22)
[2020-07-30] MEDS: Digoxin 125 MCG Tab PO SCH (11:42)
[2020-07-30] MEDS ORDERED: Loperamide 2 MG Cap PO ONE (17:28)
[2020-07-30] MEDS ORDERED: Loperamide 2 MG Cap PO PRN (17:56)
[2020-07-31] MEDS: Aspirin 81 MG Tab.EC PO SCH (07:51)
[2020-07-31] MEDS: Levothyroxine 50 MCG Tab PO SCH (07:51)
[2020-07-31] MEDS: Amiodarone 200 MG Tab PO SCH (07:51)
[2020-07-31] MEDS: Furosemide 40 MG Tab PO SCH (07:51)
[2020-07-31] MEDS: atorvaSTATin 10 MG Tab PO SCH (07:52)
[2020-07-31] MEDS: Apixaban 5 MG Tab PO SCH ×2 (07:52→19:54)
[2020-07-31] MEDS: Allopurinol 100 MG Tab PO SCH (07:52)
[2020-07-31] MEDS: Insulin Glarg,Human.Rec.Analog 100 Unit/ML SUBCUT SCH ×2 (07:53→19:57)
[2020-07-31] MEDS: Insulin Lispro 100 Units/ML 3 ML Vial SUBCUT SCH ×3 (07:54→17:14)
[2020-07-31] MEDS: Digoxin 125 MCG Tab PO SCH (12:29)
[2020-07-31] MEDS: Loperamide 2 MG Cap PO PRN ×2 (14:59→15:58)
[2020-08-01] MEDS: Aspirin 81 MG Tab.EC PO SCH (07:58)
[2020-08-01] MEDS: Furosemide 40 MG Tab PO SCH (07:59)
[2020-08-01] MEDS: Amiodarone 200 MG Tab PO SCH (07:59)
[2020-08-01] MEDS: Levothyroxine 50 MCG Tab PO SCH (07:59)
[2020-08-01] MEDS: Apixaban 5 MG Tab PO SCH ×2 (08:00→19:28)
[2020-08-01] MEDS: atorvaSTATin 10 MG Tab PO SCH (08:00)
[2020-08-01] MEDS: Allopurinol 100 MG Tab PO SCH (08:00)
[2020-08-01] MEDS: Insulin Glarg,Human.Rec.Analog 100 Unit/ML SUBCUT SCH ×2 (08:01→19:46)
[2020-08-01] MEDS: Insulin Lispro 100 Units/ML 3 ML Vial SUBCUT SCH ×3 (08:02→17:12)
[2020-08-01] MEDS: Digoxin 125 MCG Tab PO SCH (11:38)
[2020-08-01] MEDS: Loperamide 2 MG Cap PO PRN (17:51)
[2020-08-01] MEDS: Oxyquinoline/Emollient 0.3% Oint 1 OZ Canister TOP PRN (19:43)
[2020-08-02] MEDS: Furosemide 40 MG Tab PO SCH (07:29)
[2020-08-02] MEDS: Apixaban 5 MG Tab PO SCH ×2 (07:29→19:33)
[2020-08-02] MEDS: Levothyroxine 50 MCG Tab PO SCH (07:30)
[2020-08-02] MEDS: Amiodarone 200 MG Tab PO SCH (07:30)
[2020-08-02] MEDS: Aspirin 81 MG Tab.EC PO SCH (07:31)
[2020-08-02] MEDS: atorvaSTATin 10 MG Tab PO SCH (07:31)
[2020-08-02] MEDS: Allopurinol 100 MG Tab PO SCH (07:33)
[2020-08-02] MEDS: Insulin Glarg,Human.Rec.Analog 100 Unit/ML SUBCUT SCH ×2 (07:41→19:34)
[2020-08-02] MEDS: Insulin Lispro 100 Units/ML 3 ML Vial SUBCUT SCH ×3 (07:42→17:08)
[2020-08-02] MEDS: Digoxin 125 MCG Tab PO SCH (11:37)
[2020-08-02] MEDS: Loperamide 2 MG Cap PO PRN (19:37)
[2020-08-03] MEDS: Aspirin 81 MG Tab.EC PO SCH (08:15)
[2020-08-03] MEDS: Apixaban 5 MG Tab PO SCH ×2 (08:16→20:06)
[2020-08-03] MEDS: Furosemide 40 MG Tab PO SCH (08:16)
[2020-08-03] MEDS: Allopurinol 100 MG Tab PO SCH (08:17)
[2020-08-03] MEDS: Amiodarone 200 MG Tab PO SCH (08:17)
[2020-08-03] MEDS: Levothyroxine 50 MCG Tab PO SCH (08:17)
[2020-08-03] MEDS: atorvaSTATin 10 MG Tab PO SCH (08:17)
[2020-08-03] MEDS: Insulin Lispro 100 Units/ML 3 ML Vial SUBCUT SCH ×3 (08:19→17:41)
[2020-08-03] MEDS: Insulin Glarg,Human.Rec.Analog 100 Unit/ML SUBCUT SCH ×2 (08:21→20:06)
[2020-08-03] MEDS ORDERED: Insulin Glarg,Human.Rec.Analog 100 Unit/ML SUBCUT SCH (13:06)
[2020-08-03] MEDS: Digoxin 125 MCG Tab PO SCH (14:01)
[2020-08-04] MEDS: Aspirin 81 MG Tab.EC PO SCH (07:41)
[2020-08-04] MEDS: Apixaban 5 MG Tab PO SCH ×2 (07:42→19:32)
[2020-08-04] MEDS: Levothyroxine 50 MCG Tab PO SCH (07:42)
[2020-08-04] MEDS: Furosemide 40 MG Tab PO SCH (07:42)
[2020-08-04] MEDS: Allopurinol 100 MG Tab PO SCH (07:42)
[2020-08-04] MEDS: atorvaSTATin 10 MG Tab PO SCH (07:43)
[2020-08-04] MEDS: Amiodarone 200 MG Tab PO SCH (07:43)
[2020-08-04] MEDS: Insulin Glarg,Human.Rec.Analog 100 Unit/ML SUBCUT SCH ×2 (07:55→19:33)
[2020-08-04] MEDS: Insulin Lispro 100 Units/ML 3 ML Vial SUBCUT SCH ×3 (07:58→17:05)
[2020-08-04] MEDS: Digoxin 125 MCG Tab PO SCH (11:47)
[2020-08-04] MEDS: Fluconazole 100 MG Tab PO SCH (13:15)
[2020-08-05] MEDS: Amiodarone 200 MG Tab PO SCH (07:57)
[2020-08-05] MEDS: Furosemide 40 MG Tab PO SCH (07:57)
[2020-08-05] MEDS: Allopurinol 100 MG Tab PO SCH (07:57)
[2020-08-05] MEDS: Levothyroxine 50 MCG Tab PO SCH (07:57)
[2020-08-05] MEDS: atorvaSTATin 10 MG Tab PO SCH (07:57)
[2020-08-05] MEDS: Aspirin 81 MG Tab.EC PO SCH (07:57)
[2020-08-05] MEDS: Fluconazole 100 MG Tab PO SCH (07:57)
[2020-08-05] MEDS: Apixaban 5 MG Tab PO SCH ×2 (07:57→19:25)
[2020-08-05] MEDS: Insulin Glarg,Human.Rec.Analog 100 Unit/ML SUBCUT SCH ×2 (07:58→19:26)
[2020-08-05] MEDS: Insulin Lispro 100 Units/ML 3 ML Vial SUBCUT SCH ×3 (07:59→17:19)
[2020-08-05] MEDS: Digoxin 125 MCG Tab PO SCH (11:43)
[2020-08-06] MEDS: atorvaSTATin 10 MG Tab PO SCH (08:11)
[2020-08-06] MEDS: Aspirin 81 MG Tab.EC PO SCH (08:12)
[2020-08-06] MEDS: Allopurinol 100 MG Tab PO SCH (08:12)
[2020-08-06] MEDS: Amiodarone 200 MG Tab PO SCH (08:12)
[2020-08-06] MEDS: Levothyroxine 50 MCG Tab PO SCH (08:12)
[2020-08-06] MEDS: Furosemide 40 MG Tab PO SCH (08:12)
[2020-08-06] MEDS: Apixaban 5 MG Tab PO SCH ×2 (08:13→19:22)
[2020-08-06] MEDS: Insulin Lispro 100 Units/ML 3 ML Vial SUBCUT SCH ×3 (08:13→17:26)
[2020-08-06] MEDS: Fluconazole 100 MG Tab PO SCH (08:13)
[2020-08-06] MEDS: Insulin Glarg,Human.Rec.Analog 100 Unit/ML SUBCUT SCH ×2 (08:15→20:34)
[2020-08-06] MEDS: Oxyquinoline/Emollient 0.3% Oint 1 OZ Canister TOP PRN (09:45)
[2020-08-06] MEDS: Digoxin 125 MCG Tab PO SCH (11:46)
[2020-08-07] MEDS: Furosemide 40 MG Tab PO SCH (08:13)
[2020-08-07] MEDS: atorvaSTATin 10 MG Tab PO SCH (08:13)
[2020-08-07] MEDS: Aspirin 81 MG Tab.EC PO SCH (08:13)
[2020-08-07] MEDS: Apixaban 5 MG Tab PO SCH ×2 (08:13→19:23)
[2020-08-07] MEDS: Fluconazole 100 MG Tab PO SCH (08:13)
[2020-08-07] MEDS: Amiodarone 200 MG Tab PO SCH (08:13)
[2020-08-07] MEDS: Levothyroxine 50 MCG Tab PO SCH (08:13)
[2020-08-07] MEDS: Allopurinol 100 MG Tab PO SCH (08:14)
[2020-08-07] MEDS: Insulin Glarg,Human.Rec.Analog 100 Unit/ML SUBCUT SCH ×2 (08:14→20:35)
[2020-08-07] MEDS: Insulin Lispro 100 Units/ML 3 ML Vial SUBCUT SCH ×3 (08:16→17:05)
[2020-08-07] MEDS: Digoxin 125 MCG Tab PO SCH (11:49)
[2020-08-08] MEDS: Fluconazole 100 MG Tab PO SCH (08:05)
[2020-08-08] MEDS: Aspirin 81 MG Tab.EC PO SCH (08:05)
[2020-08-08] MEDS: Furosemide 40 MG Tab PO SCH (08:05)
[2020-08-08] MEDS: Amiodarone 200 MG Tab PO SCH (08:05)
[2020-08-08] MEDS: Apixaban 5 MG Tab PO SCH ×2 (08:05→19:29)
[2020-08-08] MEDS: atorvaSTATin 10 MG Tab PO SCH (08:05)
[2020-08-08] MEDS: Allopurinol 100 MG Tab PO SCH (08:05)
[2020-08-08] MEDS: Levothyroxine 50 MCG Tab PO SCH (08:06)
[2020-08-08] MEDS: Insulin Glarg,Human.Rec.Analog 100 Unit/ML SUBCUT SCH ×2 (08:06→20:41)
[2020-08-08] MEDS: Insulin Lispro 100 Units/ML 3 ML Vial SUBCUT SCH ×3 (08:07→17:46)
[2020-08-08] MEDS: Digoxin 125 MCG Tab PO SCH (11:53)
[2020-08-09] MEDS: atorvaSTATin 10 MG Tab PO SCH (07:24)
[2020-08-09] MEDS: Aspirin 81 MG Tab.EC PO SCH (07:24)
[2020-08-09] MEDS: Amiodarone 200 MG Tab PO SCH (07:25)
[2020-08-09] MEDS: Levothyroxine 50 MCG Tab PO SCH (07:25)
[2020-08-09] MEDS: Fluconazole 100 MG Tab PO SCH (07:25)
[2020-08-09] MEDS: Furosemide 40 MG Tab PO SCH (07:25)
[2020-08-09] MEDS: Apixaban 5 MG Tab PO SCH ×2 (07:25→19:26)
[2020-08-09] MEDS: Allopurinol 100 MG Tab PO SCH (07:25)
[2020-08-09] MEDS: Insulin Glarg,Human.Rec.Analog 100 Unit/ML SUBCUT SCH ×2 (07:27→20:36)
[2020-08-09] MEDS: Insulin Lispro 100 Units/ML 3 ML Vial SUBCUT SCH ×3 (07:28→17:40)
[2020-08-09] MEDS: Digoxin 125 MCG Tab PO SCH (11:35)
[2020-08-09] MEDS ORDERED: FLU Vacc QS2020-21 36MOS UP/PF 60 MCG/0.5 ML Syringe IM ONE ×2 (15:00→16:00)
[2020-08-10] MEDS: Apixaban 5 MG Tab PO SCH ×2 (07:49→20:17)
[2020-08-10] MEDS: Aspirin 81 MG Tab.EC PO SCH (07:49)
[2020-08-10] MEDS: Levothyroxine 50 MCG Tab PO SCH (07:49)
[2020-08-10] MEDS: atorvaSTATin 10 MG Tab PO SCH (07:49)
[2020-08-10] MEDS: Fluconazole 100 MG Tab PO SCH (07:49)
[2020-08-10] MEDS: Furosemide 40 MG Tab PO SCH (07:49)
[2020-08-10] MEDS: Amiodarone 200 MG Tab PO SCH (07:49)
[2020-08-10] MEDS: Allopurinol 100 MG Tab PO SCH (07:49)
[2020-08-10] MEDS: Insulin Glarg,Human.Rec.Analog 100 Unit/ML SUBCUT SCH ×2 (07:51→20:45)
[2020-08-10] MEDS: Insulin Lispro 100 Units/ML 3 ML Vial SUBCUT SCH ×3 (07:52→17:56)
[2020-08-10] MEDS: Digoxin 125 MCG Tab PO SCH (13:29)
[2020-08-10] MEDS: Loperamide 2 MG Cap PO PRN (15:32)
[2020-08-11] MEDS: Apixaban 5 MG Tab PO SCH ×2 (07:35→19:42)
[2020-08-11] MEDS: Fluconazole 100 MG Tab PO SCH (07:36)
[2020-08-11] MEDS: Levothyroxine 50 MCG Tab PO SCH (07:36)
[2020-08-11] MEDS: Aspirin 81 MG Tab.EC PO SCH (07:37)
[2020-08-11] MEDS: Furosemide 40 MG Tab PO SCH (07:37)
[2020-08-11] MEDS: Amiodarone 200 MG Tab PO SCH (07:37)
[2020-08-11] MEDS: atorvaSTATin 10 MG Tab PO SCH (07:38)
[2020-08-11] MEDS: Allopurinol 100 MG Tab PO SCH (07:38)
[2020-08-11] MEDS: Insulin Lispro 100 Units/ML 3 ML Vial SUBCUT SCH ×3 (07:39→17:22)
[2020-08-11] MEDS: Insulin Glarg,Human.Rec.Analog 100 Unit/ML SUBCUT SCH ×2 (07:40→20:32)
[2020-08-11] MEDS: Digoxin 125 MCG Tab PO SCH (11:53)
[2020-08-12] MEDS: Allopurinol 100 MG Tab PO SCH (07:30)
[2020-08-12] MEDS: Fluconazole 100 MG Tab PO SCH (07:31)
[2020-08-12] MEDS: Levothyroxine 50 MCG Tab PO SCH (07:31)
[2020-08-12] MEDS: atorvaSTATin 10 MG Tab PO SCH (07:32)
[2020-08-12] MEDS: Apixaban 5 MG Tab PO SCH ×2 (07:32→19:41)
[2020-08-12] MEDS: Aspirin 81 MG Tab.EC PO SCH (07:32)
[2020-08-12] MEDS: Amiodarone 200 MG Tab PO SCH (07:33)
[2020-08-12] MEDS: Furosemide 40 MG Tab PO SCH (07:33)
[2020-08-12] MEDS: Insulin Glarg,Human.Rec.Analog 100 Unit/ML SUBCUT SCH ×2 (07:36→19:43)
[2020-08-12] MEDS: Insulin Lispro 100 Units/ML 3 ML Vial SUBCUT SCH ×3 (07:38→17:23)
[2020-08-12] MEDS: Digoxin 125 MCG Tab PO SCH (12:11)
[2020-08-13] MEDS: Furosemide 40 MG Tab PO SCH (07:43)
[2020-08-13] MEDS: atorvaSTATin 10 MG Tab PO SCH (07:44)
[2020-08-13] MEDS: Allopurinol 100 MG Tab PO SCH (07:44)
[2020-08-13] MEDS: Levothyroxine 50 MCG Tab PO SCH (07:44)
[2020-08-13] MEDS: Amiodarone 200 MG Tab PO SCH (07:44)
[2020-08-13] MEDS: Apixaban 5 MG Tab PO SCH ×2 (07:45→19:53)
[2020-08-13] MEDS: Fluconazole 100 MG Tab PO SCH (07:45)
[2020-08-13] MEDS: Aspirin 81 MG Tab.EC PO SCH (07:45)
[2020-08-13] MEDS: Insulin Lispro 100 Units/ML 3 ML Vial SUBCUT SCH ×3 (07:47→17:01)
[2020-08-13] MEDS: Insulin Glarg,Human.Rec.Analog 100 Unit/ML SUBCUT SCH ×2 (07:48→19:57)
[2020-08-13] MEDS: Digoxin 125 MCG Tab PO SCH (11:52)
[2020-08-13] MEDS: Loperamide 2 MG Cap PO PRN (18:14)
[2020-08-14] MEDS: Aspirin 81 MG Tab.EC PO SCH (08:01)
[2020-08-14] MEDS: atorvaSTATin 10 MG Tab PO SCH (08:01)
[2020-08-14] MEDS: Fluconazole 100 MG Tab PO SCH (08:01)
[2020-08-14] MEDS: Apixaban 5 MG Tab PO SCH ×2 (08:01→19:22)
[2020-08-14] MEDS: Levothyroxine 50 MCG Tab PO SCH (08:02)
[2020-08-14] MEDS: Furosemide 40 MG Tab PO SCH (08:02)
[2020-08-14] MEDS: Amiodarone 200 MG Tab PO SCH (08:02)
[2020-08-14] MEDS: Allopurinol 100 MG Tab PO SCH (08:02)
[2020-08-14] MEDS: Insulin Glarg,Human.Rec.Analog 100 Unit/ML SUBCUT SCH ×2 (08:05→19:22)
[2020-08-14] MEDS: Insulin Lispro 100 Units/ML 3 ML Vial SUBCUT SCH ×3 (08:07→18:06)
[2020-08-14] MEDS: Loperamide 2 MG Cap PO PRN (10:43)
[2020-08-14] MEDS: Simethicone 80 MG Tab.Chew PO PRN ×2 (10:44→20:42)
[2020-08-14] MEDS: Digoxin 125 MCG Tab PO SCH (11:55)
[2020-08-15] MEDS: atorvaSTATin 10 MG Tab PO SCH (08:07)
[2020-08-15] MEDS: Levothyroxine 50 MCG Tab PO SCH (08:07)
[2020-08-15] MEDS: Apixaban 5 MG Tab PO SCH ×2 (08:07→19:30)
[2020-08-15] MEDS: Allopurinol 100 MG Tab PO SCH (08:08)
[2020-08-15] MEDS: Aspirin 81 MG Tab.EC PO SCH (08:08)
[2020-08-15] MEDS: Furosemide 40 MG Tab PO SCH (08:08)
[2020-08-15] MEDS: Insulin Glarg,Human.Rec.Analog 100 Unit/ML SUBCUT SCH ×2 (08:10→19:49)
[2020-08-15] MEDS: Amiodarone 200 MG Tab PO SCH (08:20)
[2020-08-15] MEDS: Insulin Lispro 100 Units/ML 3 ML Vial SUBCUT SCH ×3 (08:21→17:35)
[2020-08-15] MEDS: Digoxin 125 MCG Tab PO SCH (11:59)
[2020-08-15] MEDS: Simethicone 80 MG Tab.Chew PO PRN ×2 (12:02→19:30)
[2020-08-16] MEDS: Aspirin 81 MG Tab.EC PO SCH (07:57)
[2020-08-16] MEDS: Allopurinol 100 MG Tab PO SCH (07:57)
[2020-08-16] MEDS: atorvaSTATin 10 MG Tab PO SCH (07:57)
[2020-08-16] MEDS: Levothyroxine 50 MCG Tab PO SCH (07:57)
[2020-08-16] MEDS: Apixaban 5 MG Tab PO SCH ×2 (07:57→19:51)
[2020-08-16] MEDS: Amiodarone 200 MG Tab PO SCH (07:57)
[2020-08-16] MEDS: Insulin Lispro 100 Units/ML 3 ML Vial SUBCUT SCH ×3 (07:58→17:29)
[2020-08-16] MEDS: Furosemide 40 MG Tab PO SCH (07:58)
[2020-08-16] MEDS: Insulin Glarg,Human.Rec.Analog 100 Unit/ML SUBCUT SCH ×2 (08:00→19:57)
[2020-08-16] MEDS: Digoxin 125 MCG Tab PO SCH (11:59)
--- NOTE | 2020-08-16 16:36 | PCM.CONSBH ---
Hx. Present Illness - - General Date of Service: 08/16/20 Admit Problem/Dx: Admission Diagnosis/Problem Admission Diagnosis/Problem CHF, Congestive heart failure DM s/p stroke CKD Source of Information: Reports: Patient, Old Records, RN Notes Reviewed - History of Present Illness INITIAL COMMENTS - FREE TEXT/NARRATIVE: Nursing staff have noted the patient has been more down, quiet, and decreased appetite over the last week. Patient has complaints of feeling numb, poor appetite, worries about his family getting sick with covid. When asked about his mood states " not very good" and has compaints of abdominal pain/gas discomfort. Patient denies suicidal or homicidal ideations, delusions, or hallucinations. Severity: Mild - Related Data Allergies/Adverse Reactions: Allergies Allergy/AdvReac Type Severity Reaction Status Date / Time propoxyphene HCl Allergy Cannot Verified 07/29/20 12:07 [From Angela] Remember Home Medications: Home Meds Allopurinol [Zyloprim] 100 mg PO DAILY 04/09/15 [History] Aspirin [Halfprin] 81 mg PO DAILY 04/09/15 [History] Furosemide [Lasix] 40 mg PO DAILY 04/09/15 [History] Levothyroxine [Synthroid] 50 mcg PO DAILY 04/09/15 [History] Liraglutide [Victoza] 1.8 mg SUBCUT DAILY 04/09/15 [History] atorvaSTATin [Lipitor] 10 mg PO DAILY 04/09/15 [History] Insulin Aspart [NovoLOG] 33 units SQ TIDMEALS 07/15/20 [History] Insulin Degludec [Tresiba] 80 mg SQ BEDTIME 07/15/20 [History] Calcium Carb/D3/Magnesium/Zinc [Negrito Mag Zinc + D3] 1 tab PO DAILY 07/29/20 [History] Cholecalciferol (Vitamin D3) [Vitamin D3] 5,000 unit PO DAILY 07/29/20 [History] Multivitamin [Daily Multiple Vitamin] 1 each PO DAILY 07/29/20 [History] Vitamin E 400 unit PO DAILY 07/29/20 [History] Past Medical Hx - Other Hx: difficulty with urination Psychiatric Hx: Reports: Depression Other Cardiovascular Surgical Hx: cardioversion on 07/28/20 Social & Family History - - Family History Family Psychiatric and CD Hx: Patient states he was started on Duloxetine many years ago by his Director Integrated. He states his vocational technical education director thought his overeating was related to depression. Patient denies noticing a change to eating behaviors or mood with the Duloxetine. He is unaware of any family psychiatric history. - Alcohol Use Alcohol Use History: No - Recreational Drug Use Recreational Drug Use: No Drug Use Last 12 Months: No - Living Situation & Occupation Living situation: Reports: Occupation: Retired Review of Systems - - Review of Systems: Review Of Systems: See Below Psychiatric: Reports: Depression Neurological: Reports: Weakness Exam - - Exam Exam: See Below (General Appearance: adult male lying in bed wearing a hospital gown, appears tired, dark stubble noted to face, hair uncombed. Mood: Dysphoric. Affect: Congruent with mood. Suicidal/Homicidal Ideations: Patient denies SI or HI. Behavior: Cooperative. Speech: Clear, Coherent, Spontaneous. Rate and volume normal. Thought Process: Goal directed, linear, logical. Thought Content: Denies delusions or hallucinations. Abnormal motor movements: normal Orientation: Orientation x 3 Attention Span and Concentration: Normal. Judgment/Insight: Developmentally appropriate and Intact.) - Vital Signs Vital Signs: Last Vital Signs Temp 37.1 C 08/16/20 08:00 Pulse 100 08/16/20 11:59 Resp 16 08/16/20 08:00 BP 113/64 08/16/20 08:00 Pulse Ox 95 08/16/20 08:00 - Exam General: Oriented, Cooperative, Other (appears tired) Neuro Exam - Mental Status: Oriented x3 Psychiatric: Other - [place] I, II, III (1) Depression SNOMED Code(s): 55255963 ICD Code: F32.9 - MAJOR DEPRESSIVE DISORDER, SINGLE EPISODE, UNSPECIFIED Status: Chronic Priority: Medium Current Visit: Yes Onset Date: Unknown Qualifiers: Major depression recurrence: recurrent Major depression episode severity: mild - [place] IV Psychosocial and Environmental Problems: Patient reports missing his daughter and reports worrying about her. He states he has not seen her for over three weeks but has talked to her daily. When asked what his discharge plan is he reports states "everyone is making those decisions for me but me." When asked who everyone is states "my daughter, my son, and the hospital." Patient states he understands the plan for discharge is to live in assisted living for a short time while having rehab to become stronger before going home. He states his ultimate goal is to get home because it was his wifes dream home and reminds him of her. Patient reports missing his and become tearful talking about her. - Plan FREE TEXT/NARRATIVE: Will start Sertraline 50 mg daily. Patient refuses to restart Duloxetine as he does not feel this medication was helpful in the past. - Orders Orders Last 24hrs: Active Orders 24 hr Category Date Time Status Sertraline [Zoloft] Med 08/17/20 08:00 Active 50 mg PO DAILY Medication Orders Acetaminophen (Tylenol) 650 mg PO Q4H PRN PRN Reason: Pain Allopurinol (Zyloprim) 100 mg PO DAILY [facility] Admin: 08/16/20 07:57 Dose: 100 mg Documented by: Admin: 08/15/20 08:08 Dose: 100 mg Documented by: Admin: 08/14/20 08:02 Dose: 100 mg Documented by: Admin: 08/13/20 07:44 Dose: 100 mg Documented by: Admin: 08/12/20 07:30 Dose: 100 mg Documented by: Admin: 08/11/20 07:38 Dose: 100 mg Documented by: Admin: 08/10/20 07:49 Dose: 100 mg Documented by: Admin: 08/09/20 07:25 Dose: 100 mg Documented by: Admin: 08/08/20 08:05 Dose: 100 mg Documented by: Admin: 08/07/20 08:14 Dose: 100 mg Documented by: Admin: 08/06/20 08:12 Dose: 100 mg Documented by: Admin: 08/05/20 07:57 Dose: 100 mg Documented by: Admin: 08/04/20 07:42 Dose: 100 mg Documented by: Admin: 08/03/20 08:17 Dose: 100 mg Documented by: Admin: 08/02/20 07:33 Dose: 100 mg Documented by: Admin: 08/01/20 08:00 Dose: 100 mg Documented by: Admin: 07/31/20 07:52 Dose: 100 mg Documented by: Admin: 07/30/20 07:36 Dose: 100 mg Documented by: JOSUE Amiodarone HCl (Cordarone) 200 mg PO DAILY [facility] Admin: 08/16/20 07:57 Dose: 200 mg Documented by: Admin: 08/15/20 08:20 Dose: 200 mg Documented by: Admin: 08/14/20 08:02 Dose: 200 mg Documented by: Admin: 08/13/20 07:44 Dose: 200 mg Documented by: Admin: 08/12/20 07:33 Dose: 200 mg Documented by: Admin: 08/11/20 07:37 Dose: 200 mg Documented by: Admin: 08/10/20 07:49 Dose: 200 mg Documented by: Admin: 08/09/20 07:25 Dose: 200 mg Documented by: Admin: 08/08/20 08:05 Dose: 200 mg Documented by: Admin: 08/07/20 08:13 Dose: 200 mg Documented by: Admin: 08/06/20 08:12 Dose: 200 mg Documented by: Admin: 08/05/20 07:57 Dose: 200 mg Documented by: Admin: 08/04/20 07:43 Dose: 200 mg Documented by: Admin: 08/03/20 08:17 Dose: 200 mg Documented by: Admin: 08/02/20 07:30 Dose: 200 mg Documented by: Admin: 08/01/20 07:59 Dose: 200 mg Documented by: Admin: 07/31/20 07:51 Dose: 200 mg Documented by: Admin: 07/30/20 07:36 Dose: 200 mg Documented by: JOSUE Apixaban (Eliquis) 5 mg PO BID [facility] Admin: 08/16/20 07:57 Dose: 5 mg Documented by: Admin: 08/15/20 19:30 Dose: 5 mg Documented by: Admin: 08/15/20 08:07 Dose: 5 mg Documented by: Admin: 08/14/20 19:22 Dose: 5 mg Documented by: Admin: 08/14/20 08:01 Dose: 5 mg Documented by: Admin: 08/13/20 19:53 Dose: 5 mg Documented by: Admin: 08/13/20 07:45 Dose: 5 mg Documented by: Admin: 08/12/20 19:41 Dose: 5 mg Documented by: Admin: 08/12/20 07:32 Dose: 5 mg Documented by: Admin: 08/11/20 19:42 Dose: 5 mg Documented by: Admin: 08/11/20 07:35 Dose: 5 mg Documented by: Admin: 08/10/20 20:17 Dose: 5 mg Documented by: Admin: 08/10/20 07:49 Dose: 5 mg Documented by: Admin: 08/09/20 19:26 Dose: 5 mg Documented by: Admin: 08/09/20 07:25 Dose: 5 mg Documented by: Admin: 08/08/20 19:29 Dose: 5 mg Documented by: Admin: 08/08/20 08:05 Dose: 5 mg Documented by: Admin: 08/07/20 19:23 Dose: 5 mg Documented by: Admin: 08/07/20 08:13 Dose: 5 mg Documented by: Admin: 08/06/20 19:22 Dose: 5 mg Documented by: Admin: 08/06/20 08:13 Dose: 5 mg Documented by: Admin: 08/05/20 19:25 Dose: 5 mg Documented by: Admin: 08/05/20 07:57 Dose: 5 mg Documented by: Admin: 08/04/20 19:32 Dose: 5 mg Documented by: Admin: 08/04/20 07:42 Dose: 5 mg Documented by: Admin: 08/03/20 20:06 Dose: 5 mg Documented by: Admin: 08/03/20 08:16 Dose: 5 mg Documented by: Admin: 08/02/20 19:33 Dose: 5 mg Documented by: Admin: 08/02/20 07:29 Dose: 5 mg Documented by: Admin: 08/01/20 19:28 Dose: 5 mg Documented by: Admin: 08/01/20 08:00 Dose: 5 mg Documented by: Admin: 07/31/20 19:54 Dose: 5 mg Documented by: Admin: 07/31/20 07:52 Dose: 5 mg Documented by: Admin: 07/30/20 19:47 Dose: 5 mg Documented by: Admin: 07/30/20 07:36 Dose: 5 mg Documented by: Admin: 07/29/20 20:03 Dose: 5 mg Documented by: JONAS Aspirin (Halfprin) 81 mg PO DAILY [facility] Admin: 08/16/20 07:57 Dose: 81 mg Documented by: Admin: 08/15/20 08:08 Dose: 81 mg Documented by: Admin: 08/14/20 08:01 Dose: 81 mg Documented by: Admin: 08/13/20 07:45 Dose: 81 mg Documented by: Admin: 08/12/20 07:32 Dose: 81 mg Documented by: Admin: 08/11/20 07:37 Dose: 81 mg Documented by: Admin: 08/10/20 07:49 Dose: 81 mg Documented by: Admin: 08/09/20 07:24 Dose: 81 mg Documented by: Admin: 08/08/20 08:05 Dose: 81 mg Documented by: Admin: 08/07/20 08:13 Dose: 81 mg Documented by: Admin: 08/06/20 08:12 Dose: 81 mg Documented by: Admin: 08/05/20 07:57 Dose: 81 mg Documented by: Admin: 08/04/20 07:41 Dose: 81 mg Documented by: Admin: 08/03/20 08:15 Dose: 81 mg Documented by: Admin: 08/02/20 07:31 Dose: 81 mg Documented by: Admin: 08/01/20 07:58 Dose: 81 mg Documented by: Admin: 07/31/20 07:51 Dose: 81 mg Documented by: Admin: 07/30/20 07:35 Dose: 81 mg Documented by: JOSUE Atorvastatin Calcium (Lipitor) 10 mg PO DAILY [facility] Admin: 08/16/20 07:57 Dose: 10 mg Documented by: Admin: 08/15/20 08:07 Dose: 10 mg Documented by: Admin: 08/14/20 08:01 Dose: 10 mg Documented by: Admin: 08/13/20 07:44 Dose: 10 mg Documented by: Admin: 08/12/20 07:32 Dose: 10 mg Documented by: Admin: 08/11/20 07:38 Dose: 10 mg Documented by: Admin: 08/10/20 07:49 Dose: 10 mg Documented by: Admin: 08/09/20 07:24 Dose: 10 mg Documented by: Admin: 08/08/20 08:05 Dose: 10 mg Documented by: Admin: 08/07/20 08:13 Dose: 10 mg Documented by: Admin: 08/06/20 08:11 Dose: 10 mg Documented by: Admin: 08/05/20 07:57 Dose: 10 mg Documented by: Admin: 08/04/20 07:43 Dose: 10 mg Documented by: Admin: 08/03/20 08:17 Dose: 10 mg Documented by: Admin: 08/02/20 07:31 Dose: 10 mg Documented by: Admin: 08/01/20 08:00 Dose: 10 mg Documented by: Admin: 07/31/20 07:52 Dose: 10 mg Documented by: Admin: 07/30/20 07:35 Dose: 10 mg Documented by: JOSUE Digoxin (Lanoxin) 125 mcg PO DAILY@1200 [facility] Admin: 08/16/20 11:59 Dose: 125 mcg Documented by: Admin: 08/15/20 11:59 Dose: 125 mcg Documented by: Admin: 08/14/20 11:55 Dose: 125 mcg Documented by: Admin: 08/13/20 11:52 Dose: 125 mcg Documented by: Admin: 08/12/20 12:11 Dose: 125 mcg Documented by: Admin: 08/11/20 11:53 Dose: 125 mcg Documented by: Admin: 08/10/20 13:29 Dose: 125 mcg Documented by: Admin: 08/09/20 11:35 Dose: 125 mcg Documented by: Admin: 08/08/20 11:53 Dose: 125 mcg Documented by: Admin: 08/07/20 11:49 Dose: 125 mcg Documented by: Admin: 08/06/20 11:46 Dose: 125 mcg Documented by: Admin: 08/05/20 11:43 Dose: 125 mcg Documented by: Admin: 08/04/20 11:47 Dose: 125 mcg Documented by: Admin: 08/03/20 14:01 Dose: 125 mcg Documented by: Admin: 08/02/20 11:37 Dose: 125 mcg Documented by: Admin: 08/01/20 11:38 Dose: 125 mcg Documented by: Admin: 07/31/20 12:29 Dose: 125 mcg Documented by: Admin: 07/30/20 11:42 Dose: 125 mcg Documented by: JOSUE Furosemide (Lasix) 40 mg PO DAILY [facility] Admin: 08/16/20 07:58 Dose: 40 mg Documented by: Admin: 08/15/20 08:08 Dose: 40 mg Documented by: Admin: 08/14/20 08:02 Dose: 40 mg Documented by: Admin: 08/13/20 07:43 Dose: 40 mg Documented by: Admin: 08/12/20 07:33 Dose: 40 mg Documented by: Admin: 08/11/20 07:37 Dose: 40 mg Documented by: Admin: 08/10/20 07:49 Dose: 40 mg Documented by: Admin: 08/09/20 07:25 Dose: 40 mg Documented by: Admin: 08/08/20 08:05 Dose: 40 mg Documented by: Admin: 08/07/20 08:13 Dose: 40 mg Documented by: Admin: 08/06/20 08:12 Dose: 40 mg Documented by: Admin: 08/05/20 07:57 Dose: 40 mg Documented by: Admin: 08/04/20 07:42 Dose: 40 mg Documented by: Admin: 08/03/20 08:16 Dose: 40 mg Documented by: Admin: 08/02/20 07:29 Dose: 40 mg Documented by: Admin: 08/01/20 07:59 Dose: 40 mg Documented by: Admin: 07/31/20 07:51 Dose: 40 mg Documented by: Admin: 07/30/20 07:36 Dose: 40 mg Documented by: JOSUE Insulin Glargine (Lantus) 15 unit SUBCUT BID [facility] Last Admin: 08/16/20 08:00 Dose: 15 units Documented by: Admin: 08/15/20 19:49 Dose: 15 units Documented by: Admin: 08/15/20 08:10 Dose: 15 units Documented by: Admin: 08/14/20 19:22 Dose: 15 units Documented by: Admin: 08/14/20 08:05 Dose: 15 units Documented by: Admin: 08/13/20 19:57 Dose: 15 units Documented by: Admin: 08/13/20 07:48 Dose: 15 units Documented by: Admin: 08/12/20 19:43 Dose: 15 units Documented by: Admin: 08/12/20 07:36 Dose: 15 units Documented by: Admin: 08/11/20 20:32 Dose: 15 units Documented by: HAMILTON Insulin Human Lispro (Humalog) 0 unit SUBCUT TIDMEALS [facility]; Protocol Last Admin: 08/16/20 11:59 Dose: 2 unit Documented by: Admin: 08/16/20 07:58 Dose: 2 unit Documented by: Admin: 08/15/20 17:35 Dose: 6 unit Documented by: Admin: 08/15/20 14:39 Dose: Not Given Documented by: Admin: 08/15/20 08:21 Dose: 2 unit Documented by: Admin: 08/14/20 18:06 Dose: 4 unit Documented by: Admin: 08/14/20 11:55 Dose: 6 unit Documented by: Admin: 08/14/20 08:07 Dose: 2 unit Documented by: Admin: 08/13/20 17:01 Dose: 6 unit Documented by: Admin: 08/13/20 11:53 Dose: 6 unit Documented by: Admin: 08/13/20 07:47 Dose: 2 unit Documented by: Admin: 08/12/20 17:23 Dose: 4 unit Documented by: Admin: 08/12/20 12:13 Dose: 8 unit Documented by: Admin: 08/12/20 07:38 Dose: 2 unit Documented by: Admin: 08/11/20 17:22 Dose: 6 unit Documented by: Admin: 08/11/20 11:49 Dose: 6 unit Documented by: Admin: 08/11/20 07:39 Dose: Not Given Documented by: Admin: 08/10/20 17:56 Dose: 6 unit Documented by: Admin: 08/10/20 13:28 Dose: 10 unit Documented by: Admin: 08/10/20 07:52 Dose: 2 unit Documented by: Admin: 08/09/20 17:40 Dose: 6 unit Documented by: Admin: 08/09/20 11:32 Dose: 6 unit Documented by: Admin: 08/09/20 07:28 Dose: 6 unit Documented by: Admin: 08/08/20 17:46 Dose: 4 unit Documented by: Admin: 08/08/20 11:49 Dose: 6 unit Documented by: Admin: 08/08/20 08:07 Dose: 4 unit Documented by: Admin: 08/07/20 17:05 Dose: 4 unit Documented by: Admin: 08/07/20 11:44 Dose: 6 unit Documented by: Admin: 08/07/20 08:16 Dose: 2 unit Documented by: Admin: 08/06/20 17:26 Dose: 4 unit Documented by: Admin: 08/06/20 11:47 Dose: 6 unit Documented by: Admin: 08/06/20 08:13 Dose: 2 unit Documented by: Admin: 08/05/20 17:19 Dose: 5 unit Documented by: Admin: 08/05/20 11:43 Dose: 3 unit Documented by: Admin: 08/05/20 07:59 Dose: 1 unit Documented by: Admin: 08/04/20 17:05 Dose: 3 unit Documented by: Admin: 08/04/20 11:49 Dose: 4 unit Documented by: Admin: 08/04/20 07:58 Dose: 1 unit Documented by: Admin: 08/03/20 17:41 Dose: 2 unit Documented by: Admin: 08/03/20 11:42 Dose: 3 unit Documented by: Admin: 08/03/20 08:19 Dose: 2 unit Documented by: Admin: 08/02/20 17:08 Dose: 3 unit Documented by: Admin: 08/02/20 11:40 Dose: 4 unit Documented by: Admin: 08/02/20 07:42 Dose: 1 unit Documented by: Admin: 08/01/20 17:12 Dose: 4 unit Documented by: Admin: 08/01/20 11:39 Dose: 3 unit Documented by: Admin: 08/01/20 08:02 Dose: 1 unit Documented by: Admin: 07/31/20 17:14 Dose: Not Given Documented by: Admin: 07/31/20 11:56 Dose: 2 unit Documented by: Admin: 07/31/20 07:54 Dose: 1 unit Documented by: Admin: 07/30/20 17:22 Dose: 2 unit Documented by: Admin: 07/30/20 11:43 Dose: 2 unit Documented by: Admin: 07/30/20 08:09 Dose: 1 unit Documented by: Admin: 07/29/20 17:51 Dose: 1 unit Documented by: MARTELL Levothyroxine Sodium (Synthroid) 50 mcg PO DAILY [facility] Admin: 08/16/20 07:57 Dose: 50 mcg Documented by: Admin: 08/15/20 08:07 Dose: 50 mcg Documented by: Admin: 08/14/20 08:02 Dose: 50 mcg Documented by: Admin: 08/13/20 07:44 Dose: 50 mcg Documented by: Admin: 08/12/20 07:31 Dose: 50 mcg Documented by: Admin: 08/11/20 07:36 Dose: 50 mcg Documented by: Admin: 08/10/20 07:49 Dose: 50 mcg Documented by: Admin: 08/09/20 07:25 Dose: 50 mcg Documented by: Admin: 08/08/20 08:06 Dose: 50 mcg Documented by: Admin: 08/07/20 08:13 Dose: 50 mcg Documented by: Admin: 08/06/20 08:12 Dose: 50 mcg Documented by: Admin: 08/05/20 07:57 Dose: 50 mcg Documented by: Admin: 08/04/20 07:42 Dose: 50 mcg Documented by: Admin: 08/03/20 08:17 Dose: 50 mcg Documented by: Admin: 08/02/20 07:30 Dose: 50 mcg Documented by: Admin: 08/01/20 07:59 Dose: 50 mcg Documented by: Admin: 07/31/20 07:51 Dose: 50 mcg Documented by: Admin: 07/30/20 07:36 Dose: 50 mcg Documented by: JOSUE Loperamide HCl (Imodium) 2 mg PO ASDIRECTED PRN PRN Reason: Diarrhea Last Admin: 08/14/20 10:43 Dose: 2 mg Documented by: Admin: 08/13/20 18:14 Dose: 2 mg Documented by: Admin: 08/10/20 15:32 Dose: 2 mg Documented by: Admin: 08/02/20 19:37 Dose: 2 mg Documented by: Admin: 08/01/20 17:51 Dose: 2 mg Documented by: Admin: 07/31/20 15:58 Dose: 2 mg Documented by: Admin: 07/31/20 14:59 Dose: 2 mg Documented by: JOSUE Oxyquinoline Sulfate ([place] Oint) 1 oz TOP ASDIRECTED PRN PRN Reason: reddened rectal area Last Admin: 08/06/20 09:45 Dose: 1 applic Documented by: Admin: 08/01/20 19:43 Dose: 1 applic Documented by: MARILU Sertraline HCl (Zoloft) 50 mg PO DAILY [facility] Simethicone (Simethicone) 80 mg PO Q4H PRN PRN Reason: Other Last Admin: 08/15/20 19:30 Dose: 80 mg Documented by: Admin: 08/15/20 12:02 Dose: 80 mg Documented by: Admin: 08/14/20 20:42 Dose: 80 mg Documented by: Admin: 08/14/20 10:44 Dose: 80 mg Documented by: HAMILTON TeleHealth - TeleHealth Patient Service Facility: [facility]: [facility]
[2020-08-16] MEDS: Simethicone 80 MG Tab.Chew PO PRN (17:29)
[2020-08-16] MEDS: Loperamide 2 MG Cap PO PRN (17:29)
--- NOTE | 2020-08-16 19:28 | PCM.PN ---
- General Info Date of Service: 08/13/20 Admission Dx/Problem (Free Text): Admission Diagnosis/Problem Admission Diagnosis/Problem CHF, Congestive heart failure DM s/p stroke CKD Functional Status: Reports: Pain Controlled, Tolerating Diet, Ambulating - Review of Systems General: Reports: Weakness, Fatigue HEENT: Reports: No Symptoms Pulmonary: Denies: Shortness of Breath, Cough Cardiovascular: Denies: Chest Pain, Lightheadedness Gastrointestinal: Reports: Decreased Appetite, Other (admits to excessive belching/abdominal burning at ). Denies: Abdominal Pain Genitourinary: Reports: No Symptoms Musculoskeletal: Reports: No Symptoms Skin: Reports: No Symptoms Neurological: Reports: Weakness - Patient Data Vitals - Most Recent: Last Vital Signs Temp 98.7 F 08/16/20 08:00 Pulse 100 08/16/20 11:59 Resp 16 08/16/20 08:00 BP 113/64 08/16/20 08:00 Pulse Ox 95 08/16/20 08:00 Weight - Most Recent: 254 lb 9.6 oz Lab Results Last 24 Hours: Laboratory Results - last 24 hr 08/15/20 08/16/20 Range/Units 19:45 07:48 POC Glucose 289 H 181 H (75-105) mg/dl Med Orders - Current: Current Medications Acetaminophen (Tylenol) 650 mg PO Q4H PRN PRN Reason: Pain Allopurinol (Zyloprim) 100 mg PO DAILY [facility] Last Admin: 08/16/20 07:57 Dose: 100 mg Documented by: Amiodarone HCl (Cordarone) 200 mg PO DAILY [facility] Last Admin: 08/16/20 07:57 Dose: 200 mg Documented by: Apixaban (Eliquis) 5 mg PO BID [facility] Last Admin: 08/16/20 07:57 Dose: 5 mg Documented by: Aspirin (Halfprin) 81 mg PO DAILY [facility] Last Admin: 08/16/20 07:57 Dose: 81 mg Documented by: Atorvastatin Calcium (Lipitor) 10 mg PO DAILY [facility] Last Admin: 08/16/20 07:57 Dose: 10 mg Documented by: Digoxin (Lanoxin) 125 mcg PO DAILY@1200 [facility] Last Admin: 08/16/20 11:59 Dose: 125 mcg Documented by: Furosemide (Lasix) 40 mg PO DAILY [facility] Last Admin: 08/16/20 07:58 Dose: 40 mg Documented by: Insulin Glargine (Lantus) 15 unit SUBCUT BID [facility] Last Admin: 08/16/20 08:00 Dose: 15 units Documented by: Insulin Human Lispro (Humalog) 0 unit SUBCUT TIDMEALS [facility]; Protocol Last Admin: 08/16/20 17:29 Dose: 2 unit Documented by: Levothyroxine Sodium (Synthroid) 50 mcg PO DAILY [facility] Last Admin: 08/16/20 07:57 Dose: 50 mcg Documented by: Loperamide HCl (Imodium) 2 mg PO ASDIRECTED PRN PRN Reason: Diarrhea Last Admin: 08/16/20 17:29 Dose: 2 mg Documented by: Oxyquinoline Sulfate (Bag [place] Oint) 1 oz TOP ASDIRECTED PRN PRN Reason: reddened rectal area Last Admin: 08/06/20 09:45 Dose: 1 applic Documented by: Sertraline HCl (Zoloft) 50 mg PO DAILY [facility] Simethicone (Simethicone) 80 mg PO Q4H PRN PRN Reason: Other Last Admin: 08/16/20 17:29 Dose: 80 mg Documented by: Discontinued Medications Fluconazole (Diflucan) 100 mg PO DAILY [facility] Stop: 08/14/20 12:00 Last Admin: 08/14/20 08:01 Dose: 100 mg Documented by: Influenza Virus Vaccine (Afluria Quad 2020- (3yr Up)) 60 mcg IM .ONCE ONE Stop: 08/09/20 15:01 Last Admin: 08/09/20 16:08 Dose: 60 mcg Documented by: Insulin Glargine (Lantus) 5 unit SUBCUT BID [facility] Last Admin: 08/03/20 08:21 Dose: 5 units Documented by: Insulin Glargine (Lantus) 8 unit SUBCUT BID [facility] Insulin Glargine (Lantus) 8 unit SUBCUT BID [facility] Last Admin: 08/06/20 08:15 Dose: 8 unit Documented by: Insulin Glargine (Lantus) 10 unit SUBCUT BID [facility] Last Admin: 08/11/20 07:40 Dose: 10 units Documented by: Loperamide HCl (Imodium) 4 mg PO ONETIME ONE Stop: 07/30/20 17:29 Last Admin: 07/30/20 17:54 Dose: 4 mg Documented by: Loperamide HCl (Imodium) 4 mg PO Q6H PRN PRN Reason: Diarrhea - Exam General: Alert, Oriented HEENT: Mucous Membr. Moist/[place] Neck: Supple Lungs: Clear to Auscultation, Normal Respiratory Effort Cardiovascular: Regular Rate, Regular Rhythm GI/Abdominal Exam: Normal Bowel Sounds, Soft, Non-Tender Extremities: Normal Inspection, Pedal Edema Skin: Warm, Dry Neurological: No New Focal Deficit Sepsis Event Note - Evaluation Sepsis Screening Result: No Definite Risk - Focused Exam Vital Signs: Vital Signs Temp Pulse Pulse Resp BP Pulse Ox 08/16/20 11:59 100 08/16/20 08:00 98.7 F 98 16 113/64 95 - Problem List & Annotations (1) Weakness SNOMED Code(s): 72848601 Code(s): R53.1 - WEAKNESS Status: Acute Priority: High Current Visit: Yes (2) Acute on chronic systolic (congestive) heart failure SNOMED Code(s): 598145499, 749832281 Code(s): I50.23 - ACUTE ON CHRONIC SYSTOLIC (CONGESTIVE) HEART FAILURE Status: Acute Priority: High Current Visit: Yes (3) CAD (coronary artery disease) SNOMED Code(s): 44559595 Code(s): I25.10 - ATHSCL HEART DISEASE OF [place] CORONARY ARTERY W/O ANG PCTRS Status: Chronic Priority: High Current Visit: Yes (4) CKD (chronic kidney disease) stage 3, GFR 30-59 ml/min SNOMED Code(s): 098763651 Code(s): N18.3 - CHRONIC KIDNEY DISEASE, STAGE 3 (MODERATE) * DO NOT USE * Status: Chronic Priority: High Current Visit: Yes (5) Diabetes type 2, uncontrolled SNOMED Code(s): 713086939, 758332145 Code(s): E11.65 - TYPE 2 DIABETES MELLITUS WITH HYPERGLYCEMIA Status: Chronic Priority: High Current Visit: Yes Qualifiers: Coma presence: without coma - Problem List Review Problem List Initiated/Reviewed/Updated: Yes - Assessment Assessment:: Weakness CHF CKD Type DM uncontrolled - Plan Plan:: plan to admit to swing bed and PT for strengthening. 08-13-2020 Patient seen today for 14 day recert. Patient does feel he is slowly improving. Does still require nursing assist for cares. Is ambulating with walker with PT. Does admit that he has GI upset today, belching frequently. STates used Gas X at home and that did provide him with relief. Long discussion with patient on goals of returning home. He is worried that he may not be able to return there yet due to weakness. Agrees that may have to spend the winter at [facility] over the winter. Has in the past been able to care completely for self but feels could potentially return home with meals on wheels and help from family. discussed concerns with insulin and issues in the past with low blood sugars. He is well aware of this and feels "he can handle this". Denies any pain today, states "legs just don't work as good as they should". Blood sugars have been higher as is eating more now than prior. Have slowly increased his basal insulin over the last week. Will continue with PT. Start Simethicone today. Continue to monitor blood sugars. dean of student services involved with placement as needed.
[2020-08-17] MEDS: Furosemide 40 MG Tab PO SCH (07:27)
[2020-08-17] MEDS: atorvaSTATin 10 MG Tab PO SCH (07:27)
[2020-08-17] MEDS: Levothyroxine 50 MCG Tab PO SCH (07:27)
[2020-08-17] MEDS: Aspirin 81 MG Tab.EC PO SCH (07:27)
[2020-08-17] MEDS: Apixaban 5 MG Tab PO SCH ×2 (07:28→19:51)
[2020-08-17] MEDS: Sertraline 100 MG Tab PO SCH (07:28)
[2020-08-17] MEDS: Allopurinol 100 MG Tab PO SCH (07:28)
[2020-08-17] MEDS: Amiodarone 200 MG Tab PO SCH (07:29)
[2020-08-17] MEDS: Insulin Lispro 100 Units/ML 3 ML Vial SUBCUT SCH ×3 (07:29→17:06)
[2020-08-17] MEDS: Insulin Glarg,Human.Rec.Analog 100 Unit/ML SUBCUT SCH ×2 (08:11→19:52)
[2020-08-17] MEDS: Simethicone 80 MG Tab.Chew PO PRN ×2 (09:25→18:41)
[2020-08-17] MEDS: Ondansetron 4 MG Tab.DIS PO PRN ×2 (09:57→18:41)
[2020-08-17] MEDS: Digoxin 125 MCG Tab PO SCH (11:36)
[2020-08-18] MEDS: Apixaban 5 MG Tab PO SCH ×2 (07:58→19:21)
[2020-08-18] MEDS: Aspirin 81 MG Tab.EC PO SCH (07:58)
[2020-08-18] MEDS: Allopurinol 100 MG Tab PO SCH (07:59)
[2020-08-18] MEDS: Amiodarone 200 MG Tab PO SCH (07:59)
[2020-08-18] MEDS: atorvaSTATin 10 MG Tab PO SCH (07:59)
[2020-08-18] MEDS: Furosemide 40 MG Tab PO SCH (07:59)
[2020-08-18] MEDS: Sertraline 100 MG Tab PO SCH (07:59)
[2020-08-18] MEDS: Insulin Lispro 100 Units/ML 3 ML Vial SUBCUT SCH ×3 (08:00→17:15)
[2020-08-18] MEDS: Levothyroxine 50 MCG Tab PO SCH (08:00)
[2020-08-18] MEDS: Insulin Glarg,Human.Rec.Analog 100 Unit/ML SUBCUT SCH ×2 (08:01→19:19)
[2020-08-18] MEDS: Simethicone 80 MG Tab.Chew PO PRN (09:25)
[2020-08-18] MEDS: Digoxin 125 MCG Tab PO SCH (11:50)
[2020-08-19] MEDS: Sertraline 100 MG Tab PO SCH (07:45)
[2020-08-19] MEDS: Levothyroxine 50 MCG Tab PO SCH (07:45)
[2020-08-19] MEDS: Aspirin 81 MG Tab.EC PO SCH (07:45)
[2020-08-19] MEDS: Pantoprazole 40 MG Tab.CR PO SCH (07:46)
[2020-08-19] MEDS: Allopurinol 100 MG Tab PO SCH (07:46)
[2020-08-19] MEDS: Furosemide 40 MG Tab PO SCH (07:46)
[2020-08-19] MEDS: Amiodarone 200 MG Tab PO SCH (07:46)
[2020-08-19] MEDS: Apixaban 5 MG Tab PO SCH ×2 (07:46→19:54)
[2020-08-19] MEDS: atorvaSTATin 10 MG Tab PO SCH (07:47)
[2020-08-19] MEDS: Insulin Glarg,Human.Rec.Analog 100 Unit/ML SUBCUT SCH ×2 (07:48→19:56)
[2020-08-19] MEDS: Insulin Lispro 100 Units/ML 3 ML Vial SUBCUT SCH ×3 (07:48→17:58)
[2020-08-19] MEDS: Simethicone 80 MG Tab.Chew PO PRN (10:17)
[2020-08-19] MEDS: Digoxin 125 MCG Tab PO SCH (12:54)
[2020-08-20] MEDS: Amiodarone 200 MG Tab PO SCH (07:45)
[2020-08-20] MEDS: atorvaSTATin 10 MG Tab PO SCH (07:45)
[2020-08-20] MEDS: Allopurinol 100 MG Tab PO SCH (07:45)
[2020-08-20] MEDS: Aspirin 81 MG Tab.EC PO SCH (07:45)
[2020-08-20] MEDS: Loperamide 2 MG Cap PO PRN ×2 (07:46→20:24)
[2020-08-20] MEDS: Furosemide 40 MG Tab PO SCH (07:46)
[2020-08-20] MEDS: Pantoprazole 40 MG Tab.CR PO SCH (07:46)
[2020-08-20] MEDS: Sertraline 100 MG Tab PO SCH (07:46)
[2020-08-20] MEDS: Apixaban 5 MG Tab PO SCH ×2 (07:46→19:35)
[2020-08-20] MEDS: Levothyroxine 50 MCG Tab PO SCH (07:46)
[2020-08-20] MEDS: Insulin Lispro 100 Units/ML 3 ML Vial SUBCUT SCH ×3 (07:49→17:28)
[2020-08-20] MEDS: Insulin Glarg,Human.Rec.Analog 100 Unit/ML SUBCUT SCH (07:50)
[2020-08-20] MEDS ORDERED: diphenhydrAMINE 25 MG Cap PO PRN (11:11)
[2020-08-20] MEDS: diphenhydrAMINE 25 MG Cap PO PRN ×2 (11:25→19:35)
[2020-08-20] MEDS: Digoxin 125 MCG Tab PO SCH (11:26)
[2020-08-20] MEDS: Simethicone 80 MG Tab.Chew PO PRN (16:18)
[2020-08-21] MEDS: Pantoprazole 40 MG Tab.CR PO SCH (06:59)
[2020-08-21] MEDS: Aspirin 81 MG Tab.EC PO SCH (08:09)
[2020-08-21] MEDS: Sertraline 100 MG Tab PO SCH (08:09)
[2020-08-21] MEDS: Furosemide 40 MG Tab PO SCH (08:09)
[2020-08-21] MEDS: Insulin Lispro 100 Units/ML 3 ML Vial SUBCUT SCH ×3 (08:10→17:17)
[2020-08-21] MEDS: Amiodarone 200 MG Tab PO SCH (08:10)
[2020-08-21] MEDS: Apixaban 5 MG Tab PO SCH ×2 (08:10→19:24)
[2020-08-21] MEDS: atorvaSTATin 10 MG Tab PO SCH (08:10)
[2020-08-21] MEDS: Allopurinol 100 MG Tab PO SCH (08:10)
[2020-08-21] MEDS: Levothyroxine 50 MCG Tab PO SCH (08:11)
[2020-08-21] MEDS: Digoxin 125 MCG Tab PO SCH (12:09)
[2020-08-21] MEDS: diphenhydrAMINE 25 MG Cap PO PRN ×2 (12:55→19:28)
[2020-08-21] MEDS: Simethicone 80 MG Tab.Chew PO PRN (19:51)
[2020-08-21] MEDS: Insulin Glarg,Human.Rec.Analog 100 Unit/ML SUBCUT SCH (21:00)
[2020-08-22] MEDS: Pantoprazole 40 MG Tab.CR PO SCH (06:46)
[2020-08-22] MEDS: Insulin Lispro 100 Units/ML 3 ML Vial SUBCUT SCH ×3 (07:39→17:32)
[2020-08-22] MEDS: Sertraline 100 MG Tab PO SCH (07:53)
[2020-08-22] MEDS: Apixaban 5 MG Tab PO SCH ×2 (07:53→19:24)
[2020-08-22] MEDS: Furosemide 40 MG Tab PO SCH (07:53)
[2020-08-22] MEDS: atorvaSTATin 10 MG Tab PO SCH (07:53)
[2020-08-22] MEDS: Aspirin 81 MG Tab.EC PO SCH (07:53)
[2020-08-22] MEDS: Levothyroxine 50 MCG Tab PO SCH (07:53)
[2020-08-22] MEDS: Amiodarone 200 MG Tab PO SCH (07:53)
[2020-08-22] MEDS: Allopurinol 100 MG Tab PO SCH (07:53)
[2020-08-22] MEDS ORDERED: Sodium Chloride 0.45% with KCl 1,000 ML IV SCH (11:00)
[2020-08-22] MEDS: Digoxin 125 MCG Tab PO SCH (11:41)
--- NOTE | 2020-08-22 16:08 | PCM.PN ---
- General Info Date of Service: 08/22/20 Admission Dx/Problem (Free Text): Admission Diagnosis/Problem Admission Diagnosis/Problem CHF, Congestive heart failure DM s/p stroke CKD Functional Status: Reports: Pain Controlled, Ambulating. Denies: Tolerating Diet - Review of Systems General: Reports: Weakness, Fatigue, Malaise HEENT: Reports: Ear Pain Pulmonary: Denies: Shortness of Breath, Cough Cardiovascular: Denies: Chest Pain Gastrointestinal: Reports: Nausea. Denies: Abdominal Pain, Vomiting Genitourinary: Reports: No Symptoms Musculoskeletal: Reports: No Symptoms Skin: Reports: No Symptoms Neurological: Reports: Weakness - Patient Data Vitals - Most Recent: Last Vital Signs Temp 99 F 08/22/20 07:39 Pulse 75 08/22/20 11:41 Resp 18 08/22/20 07:39 BP 104/64 08/22/20 07:39 Pulse Ox 95 08/22/20 07:39 Weight - Most Recent: 250 lb I&O - Last 24 Hours: Intake & Output 08/22/20 08/22/20 08/22/20 06:59 14:59 22:59 Intake Total 300 Output Total 250 Balance 50 Lab Results Last 24 Hours: Laboratory Results - last 24 hr 08/21/20 08/21/20 08/21/20 Range/Units 11:41 17:11 19:38 WBC (5.0-10.0) 10^3/uL RBC (4.50-6.00) 10^6/uL Hgb (14.0-18.0) g/dL Hct (40.0-54.0) % MCV (82.0-94.0) fL MCH (27.0-32.0) pg MCHC (33.0-38.0) g/dL RDW Coeff of Treva (11.0-15.0) % Plt Count (150-400) 10^3/uL Neut % (Auto) (35-85) % Lymph % (Auto) (10-55) % [place] % (Auto) (0-16) % Eos % (Auto) (0-5) % Baso % (Auto) (0-3) % Neut # (Auto) (1.80-7.00) 10^3/uL Lymph # (Auto) (1.00-4.80) 10^3/uL [place] # (Auto) (0.00-0.80) 10^3/uL Eos # (Auto) (0.00-0.45) 10^3/uL Baso # (Auto) 10^3/uL Sodium (136-145) mEq/L Potassium (3.5-5.0) mEq/L Chloride (98-106) mEq/L Carbon Dioxide (21-32) mmol/L BUN (7-18) mg/dL Creatinine (0.7-1.3) mg/dL Est Cr Clr Drug Dosing mL/min Estimated GFR (MDRD) (>=60) mL/min Glucose (75-99) mg/dL POC Glucose 194 H 224 H 212 H (75-105) mg/dl Calcium (8.4-10.1) mg/dL Total Bilirubin (0.0-1.0) mg/dL AST (15-37) U/L ALT (12-78) U/L Alkaline Phosphatase (46-116) U/L C-Reactive Protein (0.2-0.8) mg/dL Total Protein (6.4-8.2) g/dL Albumin (3.4-5.0) g/dL Urine Color (YELLOW) Urine Appearance (CLEAR) Urine pH (4.5-8.0) Ur Specific [place] (1.003-1.020) Urine Protein (NEGATIVE) mg/dL Urine Glucose (UA) (NEGATIVE) mg/dL Urine Ketones (NEGATIVE) mg/dL Urine Occult Blood (NEGATIVE) Urine Nitrite (NEGATIVE) Urine Bilirubin (NEGATIVE) Urine Urobilinogen (0.2-1.0) EU/dL Ur Leukocyte Esterase (NEGATIVE) U Hyaline Cast (Auto) (NOT SEEN) /LPF Urine RBC (0-5) /HPF Urine WBC (0-5) /HPF Ur Epithelial Cells (NOT SEEN) /HPF Calcium Oxalate Crystal (NOT SEEN) /HPF Urine Bacteria (NOT SEEN) /HPF 08/22/20 08/22/20 08/22/20 Range/Units 07:35 07:35 07:38 WBC 6.8 (5.0-10.0) 10^3/uL RBC 4.47 L (4.50-6.00) 10^6/uL Hgb 13.9 L (14.0-18.0) g/dL Hct 43.5 (40.0-54.0) % MCV 97.3 H (82.0-94.0) fL MCH 31.1 (27.0-32.0) pg MCHC 32.0 L (33.0-38.0) g/dL RDW Coeff of Treva 14.8 (11.0-15.0) % Plt Count 101 L (150-400) 10^3/uL Neut % (Auto) 42.7 (35-85) % Lymph % (Auto) 42.3 (10-55) % [place] % (Auto) 12.4 (0-16) % Eos % (Auto) 2.2 (0-5) % Baso % (Auto) 0.4 (0-3) % Neut # (Auto) 2.91 (1.80-7.00) 10^3/uL Lymph # (Auto) 2.89 (1.00-4.80) 10^3/uL [place] # (Auto) 0.85 H (0.00-0.80) 10^3/uL Eos # (Auto) 0.15 (0.00-0.45) 10^3/uL Baso # (Auto) 0.03 10^3/uL Sodium 141 (136-145) mEq/L Potassium 3.3 L (3.5-5.0) mEq/L Chloride 104 (98-106) mEq/L Carbon Dioxide 33 H (21-32) mmol/L BUN 17 (7-18) mg/dL Creatinine 2.3 H (0.7-1.3) mg/dL Est Cr Clr Drug Dosing 28.65 mL/min Estimated GFR (MDRD) 28 L (>=60) mL/min Glucose 140 H (75-99) mg/dL POC Glucose 133 H (75-105) mg/dl Calcium 7.9 L (8.4-10.1) mg/dL Total Bilirubin 1.2 H (0.0-1.0) mg/dL AST 42 H (15-37) U/L ALT 22 (12-78) U/L Alkaline Phosphatase 138 H (46-116) U/L C-Reactive Protein 1.9 H (0.2-0.8) mg/dL Total Protein 6.7 (6.4-8.2) g/dL Albumin 2.2 L (3.4-5.0) g/dL Urine Color (YELLOW) Urine Appearance (CLEAR) Urine pH (4.5-8.0) Ur Specific [place] (1.003-1.020) Urine Protein (NEGATIVE) mg/dL Urine Glucose (UA) (NEGATIVE) mg/dL Urine Ketones (NEGATIVE) mg/dL Urine Occult Blood (NEGATIVE) Urine Nitrite (NEGATIVE) Urine Bilirubin (NEGATIVE) Urine Urobilinogen (0.2-1.0) EU/dL Ur Leukocyte Esterase (NEGATIVE) U Hyaline Cast (Auto) (NOT SEEN) /LPF Urine RBC (0-5) /HPF Urine WBC (0-5) /HPF Ur Epithelial Cells (NOT SEEN) /HPF Calcium Oxalate Crystal (NOT SEEN) /HPF Urine Bacteria (NOT SEEN) /HPF 08/22/20 Range/Units 10:25 WBC (5.0-10.0) 10^3/uL RBC (4.50-6.00) 10^6/uL Hgb (14.0-18.0) g/dL Hct (40.0-54.0) % MCV (82.0-94.0) fL MCH (27.0-32.0) pg MCHC (33.0-38.0) g/dL RDW Coeff of Treva (11.0-15.0) % Plt Count (150-400) 10^3/uL Neut % (Auto) (35-85) % Lymph % (Auto) (10-55) % [place] % (Auto) (0-16) % Eos % (Auto) (0-5) % Baso % (Auto) (0-3) % Neut # (Auto) (1.80-7.00) 10^3/uL Lymph # (Auto) (1.00-4.80) 10^3/uL [place] # (Auto) (0.00-0.80) 10^3/uL Eos # (Auto) (0.00-0.45) 10^3/uL Baso # (Auto) 10^3/uL Sodium (136-145) mEq/L Potassium (3.5-5.0) mEq/L Chloride (98-106) mEq/L Carbon Dioxide (21-32) mmol/L BUN (7-18) mg/dL Creatinine (0.7-1.3) mg/dL Est Cr Clr Drug Dosing mL/min Estimated GFR (MDRD) (>=60) mL/min Glucose (75-99) mg/dL POC Glucose (75-105) mg/dl Calcium (8.4-10.1) mg/dL Total Bilirubin (0.0-1.0) mg/dL AST (15-37) U/L ALT (12-78) U/L Alkaline Phosphatase (46-116) U/L C-Reactive Protein (0.2-0.8) mg/dL Total Protein (6.4-8.2) g/dL Albumin (3.4-5.0) g/dL Urine Color Dark yellow (YELLOW) Urine Appearance Slightly cloudy (CLEAR) Urine pH 5.5 (4.5-8.0) Ur Specific [place] 1.025 H (1.003-1.020) Urine Protein Trace H (NEGATIVE) mg/dL Urine Glucose (UA) Negative (NEGATIVE) mg/dL Urine Ketones Negative (NEGATIVE) mg/dL Urine Occult Blood Trace-intact H (NEGATIVE) Urine Nitrite Negative (NEGATIVE) Urine Bilirubin Small H (NEGATIVE) Urine Urobilinogen 0.2 (0.2-1.0) EU/dL Ur Leukocyte Esterase Negative (NEGATIVE) U Hyaline Cast (Auto) Few H (NOT SEEN) /LPF Urine RBC 0-5 (0-5) /HPF Urine WBC 0-5 (0-5) /HPF Ur Epithelial Cells Few H (NOT SEEN) /HPF Calcium Oxalate Crystal Moderate H (NOT SEEN) /HPF Urine Bacteria Rare (NOT SEEN) /HPF [facility] Results Last 24 Hours: Microbiology 08/21/20 14:50 Influenza Type A Antigen Screen - Final Nasopharyngeal Swab NEGATIVE INFLUENZA A VIRUS AG REFERENCE RANGE: NEGATIVE Influenza Type B Antigen Screen - Final NEGATIVE INFLUENZA B VIRUS AG REFERENCE RANGE: NEGATIVE Med Orders - Current: Current Medications Acetaminophen (Tylenol) 650 mg PO Q4H PRN PRN Reason: Pain Last Admin: 08/20/20 07:46 Dose: 650 mg Documented by: Allopurinol (Zyloprim) 100 mg PO DAILY [facility] Last Admin: 08/22/20 07:53 Dose: 100 mg Documented by: Amiodarone HCl (Cordarone) 200 mg PO DAILY [facility] Last Admin: 08/22/20 07:53 Dose: 200 mg Documented by: Apixaban (Eliquis) 5 mg PO BID [facility] Last Admin: 08/22/20 07:53 Dose: 5 mg Documented by: Aspirin (Halfprin) 81 mg PO DAILY [facility] Last Admin: 08/22/20 07:53 Dose: 81 mg Documented by: Atorvastatin Calcium (Lipitor) 10 mg PO DAILY [facility] Last Admin: 08/22/20 07:53 Dose: 10 mg Documented by: Digoxin (Lanoxin) 125 mcg PO DAILY@1200 [facility] Last Admin: 08/22/20 11:41 Dose: 125 mcg Documented by: Diphenhydramine HCl (Benadryl) 25 mg PO Q6H PRN PRN Reason: Congestion Last Admin: 08/21/20 19:28 Dose: 25 mg Documented by: Furosemide (Lasix) 40 mg PO DAILY [facility] Last Admin: 08/22/20 07:53 Dose: 40 mg Documented by: Potassium Chloride/Sodium Chloride (1/2 Ns With 20 Meq Kcl) 1,000 mls @ 100 mls/hr IV ASDIRECTED [facility] Last Admin: 08/22/20 11:42 Dose: 100 mls/hr Documented by: Insulin Glargine (Lantus) 35 unit SUBCUT BEDTIME [facility] Last Admin: 08/21/20 21:00 Dose: 35 units Documented by: Insulin Human Lispro (Humalog) 0 unit SUBCUT TIDMEALS [facility]; Protocol Last Admin: 08/22/20 12:16 Dose: Not Given Documented by: Levothyroxine Sodium (Synthroid) 50 mcg PO DAILY [facility] Last Admin: 08/22/20 07:53 Dose: 50 mcg Documented by: Loperamide HCl (Imodium) 2 mg PO ASDIRECTED PRN PRN Reason: Diarrhea Last Admin: 08/20/20 20:24 Dose: 2 mg Documented by: Ondansetron HCl (Zofran Odt) 4 mg PO Q4H PRN PRN Reason: Nausea/Vomiting Last Admin: 08/17/20 18:41 Dose: 4 mg Documented by: Oxyquinoline Sulfate (Bag [place] Oint) 1 oz TOP ASDIRECTED PRN PRN Reason: reddened rectal area Last Admin: 08/06/20 09:45 Dose: 1 applic Documented by: Pantoprazole Sodium (Protonix) 40 mg PO DAILY@0700 [facility] Last Admin: 08/22/20 06:46 Dose: 40 mg Documented by: Sertraline HCl (Zoloft) 50 mg PO DAILY [facility] Last Admin: 08/22/20 07:53 Dose: 50 mg Documented by: Simethicone (Simethicone) 80 mg PO Q4H PRN PRN Reason: Other Last Admin: 08/21/20 19:51 Dose: 80 mg Documented by: Discontinued Medications Diphenhydramine HCl (Benadryl) 25 mg PO TID PRN PRN Reason: Congestion Fluconazole (Diflucan) 100 mg PO DAILY [facility] Stop: 08/14/20 12:00 Last Admin: 08/14/20 08:01 Dose: 100 mg Documented by: Influenza Virus Vaccine (Afluria Quad 2020- (3yr Up)) 60 mcg IM .ONCE ONE Stop: 08/09/20 15:01 Last Admin: 08/09/20 16:08 Dose: 60 mcg Documented by: Insulin Glargine (Lantus) 5 unit SUBCUT BID [facility] Last Admin: 08/03/20 08:21 Dose: 5 units Documented by: Insulin Glargine (Lantus) 8 unit SUBCUT BID [facility] Insulin Glargine (Lantus) 8 unit SUBCUT BID [facility] Last Admin: 08/06/20 08:15 Dose: 8 unit Documented by: Insulin Glargine (Lantus) 10 unit SUBCUT BID [facility] Last Admin: 08/11/20 07:40 Dose: 10 units Documented by: Insulin Glargine (Lantus) 15 unit SUBCUT BID [facility] Last Admin: 08/18/20 08:01 Dose: 15 units Documented by: Insulin Glargine (Lantus) 0 unit SUBCUT BID [facility] Last Admin: 08/20/20 07:50 Dose: 20 units Documented by: Loperamide HCl (Imodium) 4 mg PO ONETIME ONE Stop: 07/30/20 17:29 Last Admin: 07/30/20 17:54 Dose: 4 mg Documented by: Loperamide HCl (Imodium) 4 mg PO Q6H PRN PRN Reason: Diarrhea - Exam General: Alert, Oriented HEENT: Mucous Membr. Moist/[place] Neck: Supple Lungs: Clear to Auscultation, Normal Respiratory Effort Cardiovascular: Regular Rate, Regular Rhythm GI/Abdominal Exam: Normal Bowel Sounds, Soft, Non-Tender Skin: Warm, Dry Physical Findings Comments:: Patient evaluated today due to increasing weakness and lethargy. Has not been eating well over the last few days with general malaise. Flat affect. Complains of nausea, no appetite. Not as active or conversive as he has been. Having issues with loose stools at times. No fevers. Was tested for COVID yesterday, negative. Influenza negative. Labs done today, essentially stable except creatinine has increased to 2.3. Had not urinated for many hours. Urine very dark with high specific gravity. Will start IV fluids today, cautiously. Continue to monitor blood sugars. Reevaluate in am Sepsis Event Note - Evaluation Sepsis Screening Result: No Definite Risk - Focused Exam Vital Signs: Vital Signs Temp Pulse Pulse Resp BP Pulse Ox 08/22/20 11:41 75 08/22/20 07:39 99 F 93 18 104/64 95 - Problem List & Annotations (1) Weakness SNOMED Code(s): 47411750 Code(s): R53.1 - WEAKNESS Status: Acute Priority: High Current Visit: Yes (2) Acute on chronic systolic (congestive) heart failure SNOMED Code(s): 544036987, 670598560 Code(s): I50.23 - ACUTE ON CHRONIC SYSTOLIC (CONGESTIVE) HEART FAILURE Status: Acute Priority: High Current Visit: Yes (3) CAD (coronary artery disease) SNOMED Code(s): 22773793 Code(s): I25.10 - ATHSCL HEART DISEASE OF [place] CORONARY ARTERY W/O ANG PCTRS Status: Chronic Priority: High Current Visit: Yes (4) CKD (chronic kidney disease) stage 3, GFR 30-59 ml/min SNOMED Code(s): 381774479 Code(s): N18.3 - CHRONIC KIDNEY DISEASE, STAGE 3 (MODERATE) * DO NOT USE * Status: Chronic Priority: High Current Visit: Yes (5) Diabetes type 2, uncontrolled SNOMED Code(s): 232874179, 798249661 Code(s): E11.65 - TYPE 2 DIABETES MELLITUS WITH HYPERGLYCEMIA Status: Chronic Priority: High Current Visit: Yes Qualifiers: Coma presence: without coma - Problem List Review Problem List Initiated/Reviewed/Updated: Yes - My Orders Last 24 Hours: My Active Orders 08/21/20 20:00 Insulin Glarg,Human.Rec.Analog [LantUS] 35 unit SUBCUT BEDTIME 08/22/20 11:00 Sodium Chloride 0.45% with KCl [1/2 NS with 20 mEq KCl] 1,000 ml IV ASDIRECTED - Assessment Assessment:: Weakness CHF CKD Type DM uncontrolled - Plan Plan:: plan to admit to swing bed and PT for strengthening. 08-13-2020 Patient seen today for 14 day recert. Patient does feel he is slowly improving. Does still require nursing assist for cares. Is ambulating with walker with PT. Does admit that he has GI upset today, belching frequently. STates used Gas X at home and that did provide him with relief. Long discussion with patient on goals of returning home. He is worried that he may not be able to return there yet due to weakness. Agrees that may have to spend the winter at [facility]isted Living over the winter. Has in the past been able to care completely for self but feels could potentially return home with meals on wheels and help from family. discussed concerns with insulin and issues in the past with low blood sugars. He is well aware of this and feels "he can handle this". Denies any pain today, states "legs just don't work as good as they should". Blood sugars have been higher as is eating more now than prior. Have slowly increased his basal insulin over the last week. Will continue with PT. Start Simethicone today. Continue to monitor blood sugars. services executive involved with placement as needed. 08-22-2020 See note under physical findings.
[2020-08-22] MEDS: Insulin Glarg,Human.Rec.Analog 100 Unit/ML SUBCUT SCH (19:31)
[2020-08-23] MEDS: Pantoprazole 40 MG Tab.CR PO SCH (06:41)
[2020-08-23] MEDS: Apixaban 5 MG Tab PO SCH ×2 (07:28→19:38)
[2020-08-23] MEDS: Furosemide 40 MG Tab PO SCH (07:28)
[2020-08-23] MEDS: Sertraline 100 MG Tab PO SCH (07:28)
[2020-08-23] MEDS: Aspirin 81 MG Tab.EC PO SCH (07:28)
[2020-08-23] MEDS: Levothyroxine 50 MCG Tab PO SCH (07:29)
[2020-08-23] MEDS: Allopurinol 100 MG Tab PO SCH (07:29)
[2020-08-23] MEDS: atorvaSTATin 10 MG Tab PO SCH (07:29)
[2020-08-23] MEDS: Amiodarone 200 MG Tab PO SCH (07:29)
[2020-08-23] MEDS: Insulin Lispro 100 Units/ML 3 ML Vial SUBCUT SCH ×3 (07:30→18:06)
[2020-08-23] MEDS: Digoxin 125 MCG Tab PO SCH (11:34)
[2020-08-23] MEDS: Insulin Glarg,Human.Rec.Analog 100 Unit/ML SUBCUT SCH (19:44)
[2020-08-23] MEDS: diphenhydrAMINE 25 MG Cap PO PRN (19:58)
[2020-08-24] MEDS: Pantoprazole 40 MG Tab.CR PO SCH (07:06)
[2020-08-24] MEDS: Aspirin 81 MG Tab.EC PO SCH (08:09)
[2020-08-24] MEDS: Sertraline 100 MG Tab PO SCH (08:09)
[2020-08-24] MEDS: atorvaSTATin 10 MG Tab PO SCH (08:09)
[2020-08-24] MEDS: Amiodarone 200 MG Tab PO SCH (08:09)
[2020-08-24] MEDS: Allopurinol 100 MG Tab PO SCH (08:10)
[2020-08-24] MEDS: Furosemide 40 MG Tab PO SCH (08:10)
[2020-08-24] MEDS: Levothyroxine 50 MCG Tab PO SCH (08:10)
[2020-08-24] MEDS: Apixaban 5 MG Tab PO SCH ×2 (08:10→19:56)
[2020-08-24] MEDS: Insulin Lispro 100 Units/ML 3 ML Vial SUBCUT SCH ×3 (08:14→17:34)
[2020-08-24] MEDS: Digoxin 125 MCG Tab PO SCH (12:08)
[2020-08-24] MEDS: Insulin Glarg,Human.Rec.Analog 100 Unit/ML SUBCUT SCH (19:57)
[2020-08-24] MEDS: diphenhydrAMINE 25 MG Cap PO PRN (20:05)
[2020-08-25 07:52] VITALS: BP 131/85; PULSE 111
[2020-08-25] MEDS: Sertraline 100 MG Tab PO SCH (07:52)
[2020-08-25] MEDS: Amiodarone 200 MG Tab PO SCH (07:52)
[2020-08-25] MEDS: atorvaSTATin 10 MG Tab PO SCH (07:52)
[2020-08-25] MEDS: Levothyroxine 50 MCG Tab PO SCH (07:52)
[2020-08-25] MEDS: Aspirin 81 MG Tab.EC PO SCH (07:52)
[2020-08-25] MEDS: Pantoprazole 40 MG Tab.CR PO SCH (07:53)
[2020-08-25] MEDS: Furosemide 40 MG Tab PO SCH (07:53)
[2020-08-25] MEDS: Apixaban 5 MG Tab PO SCH (07:53)
[2020-08-25] MEDS: Allopurinol 100 MG Tab PO SCH (07:53)
[2020-08-25] MEDS: Insulin Lispro 100 Units/ML 3 ML Vial SUBCUT SCH (07:54)
--- NOTE | 2020-08-25 14:24 | PCM.DCSUM1 ---
Discharge Summary - Hospital Course Free Text/Narrative:: Patient presented to [facility] after lengthy stay at [place]. Had initially been admitted to our facility for CHF. Was in cardiogenic shock with tachycardia, hypotension. Was transferred to [place]. At one point, was intubated and had a stroke. History of DM and CKD. Was dealing with low blood sugars, insulins were held. Developed new onset atrial fib that did not convert on meds. Was cardioverted and rhythm controlled now by Amiodarone and Digoxin. Transferred here for physical therapy. Diagnosis: Stroke: No Modified Jacquie Scale: No Symptoms at All Modified [place] Scale Score: 0 - Discharge Data Discharge Date: 08/25/20 Discharge Disposition: Home, Self-Care 01 Condition: Fair - Referral to Home Health Date of Face to Face Encounter: 08/25/20 Reason for Homebound Status: Unable to drive due to weakness/health concerns. Primary Care Physician: Jose Raul Augustin MD Skilled Need: Nursing to monitor lung sounds, blood pressure, blood sugar log and med compliance. Also meal intake. Physical therapy for strengthening, ambulation. Occupational therapy for ADLs. - Discharge Diagnosis/Problem(s) (1) Weakness SNOMED Code(s): 62128572 ICD Code: R53.1 - WEAKNESS Status: Acute Priority: High (2) Acute on chronic systolic (congestive) heart failure SNOMED Code(s): 416391976, 764116590 ICD Code: I50.23 - ACUTE ON CHRONIC SYSTOLIC (CONGESTIVE) HEART FAILURE Status: Acute Priority: High (3) CAD (coronary artery disease) SNOMED Code(s): 28011827 ICD Code: I25.10 - ATHSCL HEART DISEASE OF [place] CORONARY ARTERY W/O ANG PCTRS Status: Chronic Priority: High (4) CKD (chronic kidney disease) stage 3, GFR 30-59 ml/min SNOMED Code(s): 254080557 ICD Code: N18.3 - CHRONIC KIDNEY DISEASE, STAGE 3 (MODERATE) * DO NOT USE * Status: Chronic Priority: High (5) Diabetes type 2, uncontrolled SNOMED Code(s): 242685272, 737436022 ICD Code: E11.65 - TYPE 2 DIABETES MELLITUS WITH HYPERGLYCEMIA Status: Chronic Priority: High Qualifiers: Coma presence: without coma - Patient Summary/Data Complications: none Consults: Consultations 07/29/20 16:37 PT Evaluation and Treatment [CONS] Routine 07/29/20 17:28 Consult to Physical Therapy [PT Evaluation and Treatment] [CONS] Routine Hospital Course: Patient feels is better and improving enough to return home with his family. Does continue to be weak. Ambulates with walker but is still needing assistance by staff for ADLs. His appetite has waxed and waned during his time here. Has had ongoing concerns with excessive gas, nausea at times. Has been placed on Protonix and Simethicone which provides some relief. Blood sugars steadily increased after admission. Lantus has been slowly increased, now getting 35 units and blood sugars varying 100-200. Was having issues with increased fatigue, not eating, sleeping more. Labs were drawn, creatinine up to 2.3. Given IV fluids and did feel better after infusion. Lung sounds are clear. Edema 1+. Concerns with mood, was seen by Geno Lagunas for depression. Started on Sertraline. Do have concerns about ability to care for self, unable to be home alone. Attempted to get caregiver for home, unable to find. Family has agreed to take care of patient as he is resistant to assisted living yet at this point. - Patient Instructions Diet: Diabetic Diet Activity: As Tolerated - Discharge Plan *PRESCRIPTION DRUG MONITORING PROGRAM REVIEWED*: No *COPY OF PRESCRIPTION DRUG MONITORING REPORT IN PATIENT ELISABETH: No Prescriptions/Med Rec: Amiodarone [Cordarone] 200 mg PO DAILY #30 tablet Apixaban [Eliquis] 5 mg PO BID #60 tablet Insulin Glarg,Human.Rec.Analog [Lantus] 35 unit SUBCUT BEDTIME #1 pen Pantoprazole [ProTONIX] 40 mg PO DAILY@0700 #30 tab.cr Sertraline [Zoloft] 50 mg PO DAILY #30 tablet Home Medications: Home Meds Allopurinol [Zyloprim] 100 mg PO DAILY 04/09/15 [History] Aspirin [Halfprin] 81 mg PO DAILY 04/09/15 [History] Furosemide [Lasix] 40 mg PO DAILY 04/09/15 [History] Levothyroxine [Synthroid] 50 mcg PO DAILY 04/09/15 [History] atorvaSTATin [Lipitor] 10 mg PO DAILY 04/09/15 [History] Calcium Carb/D3/Magnesium/Zinc [Negrito Mag Zinc + D3] 1 tab PO DAILY 07/29/20 [History] Cholecalciferol (Vitamin D3) [Vitamin D3] 5,000 unit PO DAILY 07/29/20 [History] Multivitamin [Daily Multiple Vitamin] 1 each PO DAILY 07/29/20 [History] Vitamin E 400 unit PO DAILY 07/29/20 [History] Amiodarone [Cordarone] 200 mg PO DAILY #30 tablet 08/25/20 [Rx] Apixaban [Eliquis] 5 mg PO BID #60 tablet 08/25/20 [Rx] Insulin Glarg,Human.Rec.Analog [Lantus] 35 unit SUBCUT BEDTIME #1 pen 08/25/20 [Rx] Pantoprazole [ProTONIX] 40 mg PO DAILY@0700 #30 tab.cr 08/25/20 [Rx] Sertraline [Zoloft] 50 mg PO DAILY #30 tablet 08/25/20 [Rx] - Discharge Summary/Plan Comment DC Time >30 min.: No - General Info Date of Service: 08/25/20 Admission Dx/Problem (Free Text: Admission Diagnosis/Problem Admission Diagnosis/Problem CHF, Congestive heart failure DM s/p stroke CKD Functional Status: Reports: Pain Controlled, Tolerating Diet, Ambulating - Review of Systems General: Reports: Weakness, Fatigue, Malaise. Denies: Fever HEENT: Reports: No Symptoms Pulmonary: Denies: Shortness of Breath, Cough Cardiovascular: Denies: Chest Pain, Lightheadedness Gastrointestinal: Reports: Decreased Appetite, Nausea. Denies: Abdominal Pain, Vomiting Genitourinary: Reports: No Symptoms Musculoskeletal: Reports: No Symptoms Skin: Reports: No Symptoms Neurological: Reports: Weakness - Patient Data Vitals - Most Recent: Last Vital Signs Temp 98.1 F 08/25/20 07:46 Pulse 111 H 08/25/20 07:46 Resp 18 08/25/20 07:46 BP 131/85 08/25/20 07:46 Pulse Ox 92 L 08/25/20 07:46 Weight - Most Recent: 252 lb 4.8 oz Lab Results - Last 24 hrs: Laboratory Results - last 24 hr 08/24/20 08/24/20 08/25/20 Range/Units 17:32 19:49 07:51 POC Glucose 210 H 175 H 99 (75-105) mg/dl Med Orders - Current: Current Medications Discontinued Medications Acetaminophen (Tylenol) 650 mg PO Q4H PRN PRN Reason: Pain Last Admin: 08/20/20 07:46 Dose: 650 mg Documented by: Allopurinol (Zyloprim) 100 mg PO DAILY [facility] Last Admin: 08/25/20 07:53 Dose: 100 mg Documented by: Amiodarone HCl (Cordarone) 200 mg PO DAILY [facility] Last Admin: 08/25/20 07:52 Dose: 200 mg Documented by: Apixaban (Eliquis) 5 mg PO BID [facility] Last Admin: 08/25/20 07:53 Dose: 5 mg Documented by: Aspirin (Halfprin) 81 mg PO DAILY [facility] Last Admin: 08/25/20 07:52 Dose: 81 mg Documented by: Atorvastatin Calcium (Lipitor) 10 mg PO DAILY [facility] Last Admin: 08/25/20 07:52 Dose: 10 mg Documented by: Digoxin (Lanoxin) 125 mcg PO DAILY@1200 [facility] Last Admin: 08/24/20 12:08 Dose: 125 mcg Documented by: Diphenhydramine HCl (Benadryl) 25 mg PO TID PRN PRN Reason: Congestion Diphenhydramine HCl (Benadryl) 25 mg PO Q6H PRN PRN Reason: Congestion Last Admin: 08/24/20 20:05 Dose: 25 mg Documented by: Fluconazole (Diflucan) 100 mg PO DAILY [facility] Stop: 08/14/20 12:00 Last Admin: 08/14/20 08:01 Dose: 100 mg Documented by: Furosemide (Lasix) 40 mg PO DAILY [facility] Last Admin: 08/25/20 07:53 Dose: 40 mg Documented by: Potassium Chloride/Sodium Chloride (1/2 Ns With 20 Meq Kcl) 1,000 mls @ 100 mls/hr IV ASDIRECTED [facility] Last Admin: 08/22/20 11:42 Dose: 100 mls/hr Documented by: Influenza Virus Vaccine (Afluria Quad 2020-21 (3yr Up)) 60 mcg IM .ONCE ONE Stop: 08/09/20 15:01 Last Admin: 08/09/20 16:08 Dose: 60 mcg Documented by: Insulin Glargine (Lantus) 5 unit SUBCUT BID [facility] Last Admin: 08/03/20 08:21 Dose: 5 units Documented by: Insulin Glargine (Lantus) 8 unit SUBCUT BID [facility] Insulin Glargine (Lantus) 8 unit SUBCUT BID [facility] Last Admin: 08/06/20 08:15 Dose: 8 unit Documented by: Insulin Glargine (Lantus) 10 unit SUBCUT BID [facility] Last Admin: 08/11/20 07:40 Dose: 10 units Documented by: Insulin Glargine (Lantus) 15 unit SUBCUT BID [facility] Last Admin: 08/18/20 08:01 Dose: 15 units Documented by: Insulin Glargine (Lantus) 0 unit SUBCUT BID [facility] Last Admin: 08/20/20 07:50 Dose: 20 units Documented by: Insulin Glargine (Lantus) 35 unit SUBCUT BEDTIME [facility] Last Admin: 08/24/20 19:57 Dose: 35 units Documented by: Insulin Human Lispro (Humalog) 0 unit SUBCUT TIDMEALS [facility]; Protocol Last Admin: 08/25/20 07:54 Dose: Not Given Documented by: Levothyroxine Sodium (Synthroid) 50 mcg PO DAILY [facility] Last Admin: 08/25/20 07:52 Dose: 50 mcg Documented by: Loperamide HCl (Imodium) 4 mg PO ONETIME ONE Stop: 07/30/20 17:29 Last Admin: 07/30/20 17:54 Dose: 4 mg Documented by: Loperamide HCl (Imodium) 4 mg PO Q6H PRN PRN Reason: Diarrhea Loperamide HCl (Imodium) 2 mg PO ASDIRECTED PRN PRN Reason: Diarrhea Last Admin: 08/20/20 20:24 Dose: 2 mg Documented by: Ondansetron HCl (Zofran Odt) 4 mg PO Q4H PRN PRN Reason: Nausea/Vomiting Last Admin: 08/17/20 18:41 Dose: 4 mg Documented by: Oxyquinoline Sulfate (Bag [place] Oint) 1 oz TOP ASDIRECTED PRN PRN Reason: reddened rectal area Last Admin: 08/06/20 09:45 Dose: 1 applic Documented by: Pantoprazole Sodium (Protonix) 40 mg PO DAILY@0700 [facility] Last Admin: 08/25/20 07:53 Dose: 40 mg Documented by: Sertraline HCl (Zoloft) 50 mg PO DAILY [facility] Last Admin: 08/25/20 07:52 Dose: 50 mg Documented by: Simethicone (Simethicone) 80 mg PO Q4H PRN PRN Reason: Other Last Admin: 08/21/20 19:51 Dose: 80 mg Documented by: - Exam General: Reports: Alert, Oriented HEENT: Reports: Mucous Membr. Moist/[place] Neck: Reports: Supple Lungs: Reports: Clear to Auscultation, Normal Respiratory Effort Cardiovascular: Reports: Irregular Rhythm GI/Abdominal Exam: Normal Bowel Sounds, Soft, Non-Tender Extremities: Normal Inspection Skin: Reports: Warm, Dry Neurological: Reports: No New Focal Deficit
== END 2020-08-25 11:00 | disposition home or self-care (01) | DRG 947 ==
LOC: UNDOADMIN 14:05 → CC.MS 14:05
PROVIDERS: ADMIT Family Medicine; ATTEND Family Medicine
DX: R53.1 Weakness (principal); I50.43 Acute on chronic combined systolic (congestive) and diastolic (congestive) heart failure; I13.0 Hypertensive heart and chronic kidney disease with heart failure and stage 1 through stage 4 chronic kidney disease, or unspecified chronic kidney disease; I25.10 Atherosclerotic heart disease of native coronary artery without angina pectoris; N18.30 Chronic kidney disease, stage 3 unspecified; E11.22 Type 2 diabetes mellitus with diabetic chronic kidney disease; E78.00 Pure hypercholesterolemia, unspecified; Z20.828 Contact with and (suspected) exposure to other viral communicable diseases; E03.9 Hypothyroidism, unspecified; M10.9 Gout, unspecified; F32.9 Major depressive disorder, single episode, unspecified; E11.65 Type 2 diabetes mellitus with hyperglycemia; Z79.82 Long term (current) use of aspirin; Z79.890 Hormone replacement therapy; Z79.4 Long term (current) use of insulin; Z79.899 Other long term (current) drug therapy
CPT/HCPCS: 36415; 80048; 80053; 81001; 82962; 83880; 85025; 86140; 87045; 87046; 87070; 87493; 87804; 89055; 90686; 97110-GP; 97116-GP; 97161-GP; A9270-GY; J1815-GY; J3480; U0002

== ENCOUNTER 2020-09-08 11:40 | Inpatient (IN) | payer MEDICARE, BC ==
[2020-09-08] MEDS ORDERED: Sodium Chloride 0.9% 10 ML Syringe FLUSH PRN (12:11)
[2020-09-08] MEDS ORDERED: Acetaminophen 325 MG Tab PO PRN (12:11)
[2020-09-08 12:55] LABS: CHLORIDE,CL 101 mEq/L (98-106); SODIUM,NA 141 mEq/L (136-145)
[2020-09-08] MEDS ORDERED: Sodium Chloride 0.9% 100 ML IV ONE ×2 (13:30→15:00)
[2020-09-08] MEDS ORDERED: Potassium Chloride Riders 100 ML IV ONE ×3 (13:30→15:00)
[2020-09-08] MEDS ORDERED: Potassium Chloride Riders 40 MEQ in Premix Bag 1 BAG IV ONE (15:20)
[2020-09-08] MEDS: Apixaban 5 MG Tab PO SCH (20:45)
[2020-09-08] MEDS: Insulin Glarg,Human.Rec.Analog 100 Unit/ML SUBCUT SCH (20:45)
[2020-09-08] MEDS: Furosemide 40 MG/4 ML VIAL IV SCH (20:59)
[2020-09-09] MEDS ORDERED: Oxyquinoline/Emollient 0.3% Oint 1 OZ Canister TOP PRN (01:58)
[2020-09-09] MEDS: Levothyroxine 50 MCG Tab PO SCH (06:08)
[2020-09-09] MEDS: Pantoprazole 40 MG Tab.CR PO SCH (06:08)
[2020-09-09] MEDS: Amiodarone 200 MG Tab PO SCH (08:38)
[2020-09-09] MEDS: Furosemide 40 MG/4 ML VIAL IV SCH (08:38)
[2020-09-09] MEDS: Sertraline 25 MG Tab PO SCH (08:38)
[2020-09-09] MEDS: Allopurinol 100 MG Tab PO SCH (08:38)
[2020-09-09] MEDS: Apixaban 5 MG Tab PO SCH ×2 (08:38→20:21)
[2020-09-09] MEDS: Potassium Chloride 10 MEQ Tab.ER PO SCH (10:25)
[2020-09-09] MEDS: Insulin Glarg,Human.Rec.Analog 100 Unit/ML SUBCUT SCH (20:22)
--- NOTE | 2020-09-09 23:37 | PCM.PN ---
- General Info Date of Service: 09/09/20 Admission Dx/Problem (Free Text): Generalized weakness Palliative care patient CHF Hypokalemia Large Left sided pleural effusion Subjective Update: Shay is a 75 yo male who presented to the clinic yesterday and was a direct admit to the hospital. He had been hospitalized less than a month ago for CHF with complications to include atrial flutter, stroke, CHF and chronic kidney disease. Long discussion was had with family yesterday and Shay with understanding of patients guarded condition and elected to stay locally. Family and Shay did not want extensive treatment and wishes to be treated locally at this time. Daughter had stated her father wasn't able to care for himself any longer at this time. Shay admits to feeling a lot better today than yesterday. He has been ambulatory; however continues to be weak and needing assistance with ambulation. Functional Status: Reports: Pain Controlled, Tolerating Diet - Review of Systems General: Reports: Weakness HEENT: Reports: No Symptoms Pulmonary: Denies: Cough, Sputum Cardiovascular: Reports: No Symptoms Gastrointestinal: Reports: No Symptoms Genitourinary: Reports: No Symptoms Musculoskeletal: Reports: No Symptoms Skin: Reports: No Symptoms Neurological: Reports: No Symptoms Psychiatric: Reports: No Symptoms - Patient Data Vitals - Most Recent: Last Vital Signs Temp 98.8 F 09/09/20 20:00 Pulse 92 09/09/20 20:00 Resp 18 09/09/20 20:00 BP 122/65 09/09/20 20:00 Pulse Ox 92 L 09/09/20 20:00 Weight - Most Recent: 244 lb Lab Results Last 24 Hours: Laboratory Results - last 24 hr 09/08/20 09/09/20 09/09/20 Range/Units 21:24 08:00 08:53 WBC 5.7 (5.0-10.0) 10^3/uL RBC 4.20 L (4.50-6.00) 10^6/uL Hgb 13.0 L (14.0-18.0) g/dL Hct 39.3 L (40.0-54.0) % MCV 93.6 (82.0-94.0) fL MCH 31.0 (27.0-32.0) pg MCHC 33.1 (33.0-38.0) g/dL RDW Coeff of Treva 16.6 H (11.0-15.0) % Plt Count 120 L (150-400) 10^3/uL Neut % (Auto) 45.8 (35-85) % Lymph % (Auto) 35.3 (10-55) % [place] % (Auto) 15.5 (0-16) % Eos % (Auto) 3.0 (0-5) % Baso % (Auto) 0.4 (0-3) % Neut # (Auto) 2.59 (1.80-7.00) 10^3/uL Lymph # (Auto) 2.00 (1.00-4.80) 10^3/uL [place] # (Auto) 0.88 H (0.00-0.80) 10^3/uL Eos # (Auto) 0.17 (0.00-0.45) 10^3/uL Baso # (Auto) 0.02 10^3/uL Sodium (136-145) mEq/L Potassium (3.5-5.0) mEq/L Chloride (98-106) mEq/L Carbon Dioxide (21-32) mmol/L BUN (7-18) mg/dL Creatinine (0.7-1.3) mg/dL Est Cr Clr Drug Dosing mL/min Estimated GFR (MDRD) (>=60) mL/min Glucose (75-99) mg/dL POC Glucose 93 (75-105) mg/dl Calcium (8.4-10.1) mg/dL Total Bilirubin (0.0-1.0) mg/dL AST (15-37) U/L ALT (12-78) U/L Alkaline Phosphatase (46-116) U/L C-Reactive Protein (0.2-0.8) mg/dL Total Protein (6.4-8.2) g/dL Albumin (3.4-5.0) g/dL Urine Color [place] (YELLOW) Urine Appearance Slightly cloudy (CLEAR) Urine pH 5.5 (4.5-8.0) Ur Specific [place] 1.025 H (1.003-1.020) Urine Protein Negative (NEGATIVE) mg/dL Urine Glucose (UA) Negative (NEGATIVE) mg/dL Urine Ketones Negative (NEGATIVE) mg/dL Urine Occult Blood Trace-intact H (NEGATIVE) Urine Nitrite Negative (NEGATIVE) Urine Bilirubin Small H (NEGATIVE) Urine Urobilinogen 1.0 (0.2-1.0) EU/dL Ur Leukocyte Esterase Negative (NEGATIVE) Urine RBC Not seen (0-5) /HPF Urine WBC 0-5 (0-5) /HPF Ur Epithelial Cells Few H (NOT SEEN) /HPF Calcium Oxalate Crystal Many H (NOT SEEN) /HPF 09/09/20 09/09/20 09/09/20 Range/Units 08:53 11:45 17:30 WBC (5.0-10.0) 10^3/uL RBC (4.50-6.00) 10^6/uL Hgb (14.0-18.0) g/dL Hct (40.0-54.0) % MCV (82.0-94.0) fL MCH (27.0-32.0) pg MCHC (33.0-38.0) g/dL RDW Coeff of Treva (11.0-15.0) % Plt Count (150-400) 10^3/uL Neut % (Auto) (35-85) % Lymph % (Auto) (10-55) % [place] % (Auto) (0-16) % Eos % (Auto) (0-5) % Baso % (Auto) (0-3) % Neut # (Auto) (1.80-7.00) 10^3/uL Lymph # (Auto) (1.00-4.80) 10^3/uL [place] # (Auto) (0.00-0.80) 10^3/uL Eos # (Auto) (0.00-0.45) 10^3/uL Baso # (Auto) 10^3/uL Sodium 143 (136-145) mEq/L Potassium 3.5 D (3.5-5.0) mEq/L Chloride 104 (98-106) mEq/L Carbon Dioxide 33 H (21-32) mmol/L BUN 27 H (7-18) mg/dL Creatinine 2.3 H (0.7-1.3) mg/dL Est Cr Clr Drug Dosing 28.21 mL/min Estimated GFR (MDRD) 28 L (>=60) mL/min Glucose 100 H (75-99) mg/dL POC Glucose 167 H 170 H (75-105) mg/dl Calcium 7.8 L (8.4-10.1) mg/dL Total Bilirubin 1.9 H (0.0-1.0) mg/dL AST 51 H (15-37) U/L ALT 23 (12-78) U/L Alkaline Phosphatase 118 H (46-116) U/L C-Reactive Protein 4.3 H (0.2-0.8) mg/dL Total Protein 6.7 (6.4-8.2) g/dL Albumin 2.4 L (3.4-5.0) g/dL Urine Color (YELLOW) Urine Appearance (CLEAR) Urine pH (4.5-8.0) Ur Specific [place] (1.003-1.020) Urine Protein (NEGATIVE) mg/dL Urine Glucose (UA) (NEGATIVE) mg/dL Urine Ketones (NEGATIVE) mg/dL Urine Occult Blood (NEGATIVE) Urine Nitrite (NEGATIVE) Urine Bilirubin (NEGATIVE) Urine Urobilinogen (0.2-1.0) EU/dL Ur Leukocyte Esterase (NEGATIVE) Urine RBC (0-5) /HPF Urine WBC (0-5) /HPF Ur Epithelial Cells (NOT SEEN) /HPF Calcium Oxalate Crystal (NOT SEEN) /HPF 09/09/20 Range/Units 20:12 WBC (5.0-10.0) 10^3/uL RBC (4.50-6.00) 10^6/uL Hgb (14.0-18.0) g/dL Hct (40.0-54.0) % MCV (82.0-94.0) fL MCH (27.0-32.0) pg MCHC (33.0-38.0) g/dL RDW Coeff of Treva (11.0-15.0) % Plt Count (150-400) 10^3/uL Neut % (Auto) (35-85) % Lymph % (Auto) (10-55) % [place] % (Auto) (0-16) % Eos % (Auto) (0-5) % Baso % (Auto) (0-3) % Neut # (Auto) (1.80-7.00) 10^3/uL Lymph # (Auto) (1.00-4.80) 10^3/uL [place] # (Auto) (0.00-0.80) 10^3/uL Eos # (Auto) (0.00-0.45) 10^3/uL Baso # (Auto) 10^3/uL Sodium (136-145) mEq/L Potassium (3.5-5.0) mEq/L Chloride (98-106) mEq/L Carbon Dioxide (21-32) mmol/L BUN (7-18) mg/dL Creatinine (0.7-1.3) mg/dL Est Cr Clr Drug Dosing mL/min Estimated GFR (MDRD) (>=60) mL/min Glucose (75-99) mg/dL POC Glucose 146 H (75-105) mg/dl Calcium (8.4-10.1) mg/dL Total Bilirubin (0.0-1.0) mg/dL AST (15-37) U/L ALT (12-78) U/L Alkaline Phosphatase (46-116) U/L C-Reactive Protein (0.2-0.8) mg/dL Total Protein (6.4-8.2) g/dL Albumin (3.4-5.0) g/dL Urine Color (YELLOW) Urine Appearance (CLEAR) Urine pH (4.5-8.0) Ur Specific [place] (1.003-1.020) Urine Protein (NEGATIVE) mg/dL Urine Glucose (UA) (NEGATIVE) mg/dL Urine Ketones (NEGATIVE) mg/dL Urine Occult Blood (NEGATIVE) Urine Nitrite (NEGATIVE) Urine Bilirubin (NEGATIVE) Urine Urobilinogen (0.2-1.0) EU/dL Ur Leukocyte Esterase (NEGATIVE) Urine RBC (0-5) /HPF Urine WBC (0-5) /HPF Ur Epithelial Cells (NOT SEEN) /HPF Calcium Oxalate Crystal (NOT SEEN) /HPF Med Orders - Current: Current Medications Acetaminophen (Tylenol) 650 mg PO Q4H PRN PRN Reason: Pain (Mild 1-3)/fever Last Admin: 09/09/20 08:38 Dose: 650 mg Documented by: Allopurinol (Zyloprim) 100 mg PO DAILY [facility] Last Admin: 09/09/20 08:38 Dose: 100 mg Documented by: Amiodarone HCl (Cordarone) 200 mg PO DAILY [facility] Last Admin: 09/09/20 08:38 Dose: 200 mg Documented by: Apixaban (Eliquis) 5 mg PO BID [facility] Last Admin: 09/09/20 20:21 Dose: 5 mg Documented by: Furosemide (Lasix) 40 mg IV DAILY [facility] Last Admin: 09/09/20 08:38 Dose: 40 mg Documented by: Insulin Glargine (Lantus) 35 unit SUBCUT BEDTIME [facility] Last Admin: 09/09/20 20:22 Dose: 35 unit Documented by: Levothyroxine Sodium (Synthroid) 50 mcg PO 0700 [facility] Last Admin: 09/09/20 06:08 Dose: 50 mcg Documented by: Oxyquinoline Sulfate (Bag [place] Oint) 1 oz TOP ASDIRECTED PRN PRN Reason: Rash Last Admin: 09/09/20 08:36 Dose: 1 applic Documented by: Pantoprazole Sodium (Protonix) 40 mg PO DAILY@0700 [facility] Last Admin: 09/09/20 06:08 Dose: 40 mg Documented by: Potassium Chloride (Klor-Con 10) 20 meq PO DAILY [facility] Last Admin: 09/09/20 10:25 Dose: 20 meq Documented by: Sertraline HCl (Zoloft) 50 mg PO DAILY [facility] Last Admin: 09/09/20 08:38 Dose: 50 mg Documented by: Sodium Chloride (Saline Flush) 10 ml FLUSH ASDIRECTED PRN PRN Reason: Keep Vein Open Discontinued Medications Sodium Chloride (Normal Saline) 100 mls @ 25 mls/hr IV ONETIME ONE Stop: 09/08/20 17:29 Last Admin: 09/08/20 16:31 Dose: Not Given Documented by: Sodium Chloride (Normal Saline) 100 mls @ 25 mls/hr IV ONETIME ONE Stop: 09/08/20 18:59 Last Admin: 09/08/20 15:35 Dose: 25 mls/hr Documented by: Potassium Chloride (Kcl 40 Meq In Water 100 Ml) 100 mls @ 25 mls/hr IV ONETIME ONE Stop: 09/08/20 18:59 Last Admin: 09/08/20 16:31 Dose: Not Given Documented by: Potassium Chloride 40 meq/ (Premix) 100 mls @ 25 mls/hr IV ONETIME ONE Stop: 09/08/20 18:59 Last Admin: 09/08/20 15:35 Dose: 25 mls/hr Documented by: - Exam Quality Assessment: Supplemental Oxygen General: Alert, Oriented, Cooperative, No Acute Distress Lungs: Normal Respiratory Effort, Crackles (left) Cardiovascular: Regular Rate, Regular Rhythm GI/Abdominal Exam: Normal Bowel Sounds, Soft, Non-Tender Extremities: Pedal Edema (trace) Sepsis Event Note - Evaluation Sepsis Screening Result: No Definite Risk - Focused Exam Vital Signs: Vital Signs Temp Pulse Resp BP Pulse Ox 09/09/20 20:00 98.8 F 92 18 122/65 92 L 09/09/20 16:00 98.0 F 88 20 123/65 94 L 09/09/20 12:00 97.9 F 92 20 116/64 92 L - Problem List & Annotations (1) Hypokalemia SNOMED Code(s): 84030845 Code(s): E87.6 - HYPOKALEMIA Status: Acute Current Visit: Yes (2) Palliative care patient SNOMED Code(s): 829862061, 170446848 Code(s): Z51.5 - ENCOUNTER FOR PALLIATIVE CARE Status: Acute Current Visit: Yes (3) Pleural effusion on left SNOMED Code(s): 56746048 Code(s): J90 - PLEURAL EFFUSION, NOT ELSEWHERE CLASSIFIED Status: Acute Current Visit: Yes (4) Weakness SNOMED Code(s): 99103163 Code(s): R53.1 - WEAKNESS Status: Acute Priority: High Current Visit: No (5) CKD (chronic kidney disease) stage 3, GFR 30-59 ml/min SNOMED Code(s): 319970562 Code(s): N18.3 - CHRONIC KIDNEY DISEASE, STAGE 3 (MODERATE) * DO NOT USE * Status: Chronic Priority: High Current Visit: No - Problem List Review Problem List Initiated/Reviewed/Updated: Yes - My Orders Last 24 Hours: My Active Orders 09/09/20 07:00 Levothyroxine [Synthroid] 50 mcg PO 0700 Pantoprazole [ProTONIX] 40 mg PO DAILY@0700 09/09/20 08:00 Amiodarone [Cordarone] 200 mg PO DAILY Sertraline [Zoloft] 50 mg PO DAILY allopurinoL [Zyloprim] 100 mg PO DAILY 09/09/20 09:38 PT Evaluation and Treatment [CONS] Routine 09/09/20 10:15 Potassium Chloride [Klor-Con 10] 20 meq PO DAILY - Plan Plan:: Shay appears to be significantly improved today. More alert and responsive. Potassium has corrected to 3.5. Will initiate oral potassium with recheck BMP daily. Discussed with Shay again in regards to further evaluation/treatment of large pleural effusion, which he declined. Admits his goal is to get stronger if capable but would like to be able to go home if he is worsening. Discussed with daughter and POA, Tiffany, Shay's progress today and she verbalized understanding. Is in agreement to treat locally at this time and in full understanding palliat joshua status. PT ordered to evaluate and treat for strengthening/ambulation.
[2020-09-10] MEDS: Pantoprazole 40 MG Tab.CR PO SCH (06:39)
[2020-09-10] MEDS: Levothyroxine 50 MCG Tab PO SCH (06:39)
[2020-09-10] MEDS: Furosemide 40 MG/4 ML VIAL IV SCH (07:54)
[2020-09-10] MEDS: Potassium Chloride 10 MEQ Tab.ER PO SCH ×3 (07:55→20:10)
[2020-09-10] MEDS: Amiodarone 200 MG Tab PO SCH (07:55)
[2020-09-10] MEDS: Allopurinol 100 MG Tab PO SCH (07:55)
[2020-09-10] MEDS: Apixaban 5 MG Tab PO SCH ×2 (07:56→20:10)
[2020-09-10] MEDS: Sertraline 25 MG Tab PO SCH (07:56)
[2020-09-10] MEDS ORDERED: Sodium Chloride 0.65% Nasal Spray 45 ML Bottle NAS PRN (09:18)
[2020-09-10] MEDS: Calcium Carbonate 500 MG Tab.Chew PO SCH ×2 (11:00→20:10)
--- NOTE | 2020-09-10 11:33 | PCM.PN ---
- General Info Date of Service: 09/10/20 Functional Status: Reports: Pain Controlled, Tolerating Diet, Ambulating, Urinating - Review of Systems General: Reports: Weakness HEENT: Reports: Other (dry nasal passages) Pulmonary: Reports: Shortness of Breath (stable) Cardiovascular: Reports: No Symptoms Gastrointestinal: Reports: No Symptoms Genitourinary: Reports: No Symptoms Skin: Reports: No Symptoms Neurological: Reports: No Symptoms - Patient Data Vitals - Most Recent: Last Vital Signs Temp 97.8 F 09/10/20 07:52 Pulse 91 09/10/20 07:52 Resp 18 09/10/20 07:52 BP 126/70 09/10/20 07:52 Pulse Ox 94 L 09/10/20 07:52 Weight - Most Recent: 244 lb Lab Results Last 24 Hours: Laboratory Results - last 24 hr 09/08/20 09/09/20 09/09/20 Range/Units 21:24 11:45 17:30 WBC (5.0-10.0) 10^3/uL RBC (4.50-6.00) 10^6/uL Hgb (14.0-18.0) g/dL Hct (40.0-54.0) % MCV (82.0-94.0) fL MCH (27.0-32.0) pg MCHC (33.0-38.0) g/dL RDW Coeff of Treva (11.0-15.0) % Plt Count (150-400) 10^3/uL Neut % (Auto) (35-85) % Lymph % (Auto) (10-55) % [place] % (Auto) (0-16) % Eos % (Auto) (0-5) % Baso % (Auto) (0-3) % Neut # (Auto) (1.80-7.00) 10^3/uL Lymph # (Auto) (1.00-4.80) 10^3/uL [place] # (Auto) (0.00-0.80) 10^3/uL Eos # (Auto) (0.00-0.45) 10^3/uL Baso # (Auto) 10^3/uL Sodium (136-145) mEq/L Potassium (3.5-5.0) mEq/L Chloride (98-106) mEq/L Carbon Dioxide (21-32) mmol/L BUN (7-18) mg/dL Creatinine (0.7-1.3) mg/dL Est Cr Clr Drug Dosing mL/min Estimated GFR (MDRD) (>=60) mL/min Glucose (75-99) mg/dL POC Glucose 167 H 170 H (75-105) mg/dl Calcium (8.4-10.1) mg/dL NT-Pro-B Natriuret Pep (0-1000) pg/mL Urine RBC Not seen (0-5) /HPF Urine WBC 0-5 (0-5) /HPF Ur Epithelial Cells Few H (NOT SEEN) /HPF Calcium Oxalate Crystal Many H (NOT SEEN) /HPF 09/09/20 09/10/20 09/10/20 Range/Units 20:12 05:11 05:11 WBC 4.4 L (5.0-10.0) 10^3/uL RBC 4.13 L (4.50-6.00) 10^6/uL Hgb 12.6 L (14.0-18.0) g/dL Hct 38.7 L (40.0-54.0) % MCV 93.7 (82.0-94.0) fL MCH 30.5 (27.0-32.0) pg MCHC 32.6 L (33.0-38.0) g/dL RDW Coeff of Treva 16.5 H (11.0-15.0) % Plt Count 89 L (150-400) 10^3/uL Neut % (Auto) 50.1 (35-85) % Lymph % (Auto) 30.9 (10-55) % [place] % (Auto) 14.9 (0-16) % Eos % (Auto) 3.6 (0-5) % Baso % (Auto) 0.5 (0-3) % Neut # (Auto) 2.23 (1.80-7.00) 10^3/uL Lymph # (Auto) 1.37 (1.00-4.80) 10^3/uL [place] # (Auto) 0.66 (0.00-0.80) 10^3/uL Eos # (Auto) 0.16 (0.00-0.45) 10^3/uL Baso # (Auto) 0.02 10^3/uL Sodium 145 (136-145) mEq/L Potassium 3.1 L (3.5-5.0) mEq/L Chloride 105 (98-106) mEq/L Carbon Dioxide 35 H (21-32) mmol/L BUN 27 H (7-18) mg/dL Creatinine 2.3 H (0.7-1.3) mg/dL Est Cr Clr Drug Dosing 28.21 mL/min Estimated GFR (MDRD) 28 L (>=60) mL/min Glucose 75 (75-99) mg/dL POC Glucose 146 H (75-105) mg/dl Calcium 7.9 L (8.4-10.1) mg/dL NT-Pro-B Natriuret Pep 3359 H (0-1000) pg/mL Urine RBC (0-5) /HPF Urine WBC (0-5) /HPF Ur Epithelial Cells (NOT SEEN) /HPF Calcium Oxalate Crystal (NOT SEEN) /HPF 1030/20 Range/Units 07:52 WBC (5.0-10.0) 10^3/uL RBC (4.50-6.00) 10^6/uL Hgb (14.0-18.0) g/dL Hct (40.0-54.0) % MCV (82.0-94.0) fL MCH (27.0-32.0) pg MCHC (33.0-38.0) g/dL RDW Coeff of Treva (11.0-15.0) % Plt Count (150-400) 10^3/uL Neut % (Auto) (35-85) % Lymph % (Auto) (10-55) % [place] % (Auto) (0-16) % Eos % (Auto) (0-5) % Baso % (Auto) (0-3) % Neut # (Auto) (1.80-7.00) 10^3/uL Lymph # (Auto) (1.00-4.80) 10^3/uL [place] # (Auto) (0.00-0.80) 10^3/uL Eos # (Auto) (0.00-0.45) 10^3/uL Baso # (Auto) 10^3/uL Sodium (136-145) mEq/L Potassium (3.5-5.0) mEq/L Chloride (98-106) mEq/L Carbon Dioxide (21-32) mmol/L BUN (7-18) mg/dL Creatinine (0.7-1.3) mg/dL Est Cr Clr Drug Dosing mL/min Estimated GFR (MDRD) (>=60) mL/min Glucose (75-99) mg/dL POC Glucose 76 (75-105) mg/dl Calcium (8.4-10.1) mg/dL NT-Pro-B Natriuret Pep (0-1000) pg/mL Urine RBC (0-5) /HPF Urine WBC (0-5) /HPF Ur Epithelial Cells (NOT SEEN) /HPF Calcium Oxalate Crystal (NOT SEEN) /HPF Med Orders - Current: Current Medications Acetaminophen (Tylenol) 650 mg PO Q4H PRN PRN Reason: Pain (Mild 1-3)/fever Last Admin: 09/09/20 08:38 Dose: 650 mg Documented by: Allopurinol (Zyloprim) 100 mg PO DAILY [facility] Last Admin: 09/10/20 07:55 Dose: 100 mg Documented by: Amiodarone HCl (Cordarone) 200 mg PO DAILY [facility] Last Admin: 09/10/20 07:55 Dose: 200 mg Documented by: Apixaban (Eliquis) 5 mg PO BID [facility] Last Admin: 09/10/20 07:56 Dose: 5 mg Documented by: Calcium Carbonate/Glycine (Tums) 500 mg PO BID [facility] Last Admin: 09/10/20 11:00 Dose: 500 mg Documented by: Furosemide (Lasix) 40 mg IV DAILY [facility] Last Admin: 09/10/20 07:54 Dose: 40 mg Documented by: Insulin Glargine (Lantus) 35 unit SUBCUT BEDTIME [facility] Last Admin: 09/09/20 20:22 Dose: 35 unit Documented by: Levothyroxine Sodium (Synthroid) 50 mcg PO 0700 [facility] Last Admin: 09/10/20 06:39 Dose: 50 mcg Documented by: Oxyquinoline Sulfate (Bag [place] Oint) 1 oz TOP ASDIRECTED PRN PRN Reason: Rash Last Admin: 09/09/20 08:36 Dose: 1 applic Documented by: Pantoprazole Sodium (Protonix) 40 mg PO DAILY@0700 [facility] Last Admin: 09/10/20 06:39 Dose: 40 mg Documented by: Potassium Chloride (Klor-Con 10) 20 meq PO BID [facility] Last Admin: 09/10/20 11:01 Dose: 20 meq Documented by: Sertraline HCl (Zoloft) 50 mg PO DAILY [facility] Last Admin: 09/10/20 07:56 Dose: 50 mg Documented by: Sodium Chloride (Saline Flush) 10 ml FLUSH ASDIRECTED PRN PRN Reason: Keep Vein Open Sodium Chloride (Bruce Nasal [place]) 0 ml MARIA TERESA QID PRN PRN Reason: Other Last Admin: 09/10/20 11:01 Dose: 1 spray Documented by: Discontinued Medications Sodium Chloride (Normal Saline) 100 mls @ 25 mls/hr IV ONETIME ONE Stop: 09/08/20 17:29 Last Admin: 09/08/20 16:31 Dose: Not Given Documented by: Sodium Chloride (Normal Saline) 100 mls @ 25 mls/hr IV ONETIME ONE Stop: 09/08/20 18:59 Last Admin: 09/08/20 15:35 Dose: 25 mls/hr Documented by: Potassium Chloride (Kcl 40 Meq In Water 100 Ml) 100 mls @ 25 mls/hr IV ONETIME ONE Stop: 09/08/20 18:59 Last Admin: 09/08/20 16:31 Dose: Not Given Documented by: Potassium Chloride 40 meq/ (Premix) 100 mls @ 25 mls/hr IV ONETIME ONE Stop: 09/08/20 18:59 Last Admin: 09/08/20 15:35 Dose: 25 mls/hr Documented by: Potassium Chloride (Klor-Con 10) 20 meq PO DAILY [facility] Last Admin: 09/10/20 07:55 Dose: 20 meq Documented by: - Exam Quality Assessment: Supplemental Oxygen General: Alert, Oriented, Cooperative, No Acute Distress HEENT: Other (excoriation bilateral nares. ) Neck: Supple Lungs: Decreased Breath Sounds (left middle to lower lobe) Cardiovascular: Regular Rate, Regular Rhythm GI/Abdominal Exam: Normal Bowel Sounds, Soft, Non-Tender, No Mass Extremities: Pedal Edema (trace) Peripheral Pulses: 2+: Dorsalis Pedis (L), Dorsalis Pedis (R) Skin: Warm, Dry, Intact Sepsis Event Note - Evaluation Sepsis Screening Result: No Definite Risk - Focused Exam Vital Signs: Vital Signs Temp Pulse Resp BP Pulse Ox 09/10/20 07:52 97.8 F 91 18 126/70 94 L 09/10/20 04:00 97.2 F 88 20 127/77 94 L 09/10/20 00:00 97.1 F 85 18 98/58 L 94 L - Problem List & Annotations (1) Hypokalemia SNOMED Code(s): 12466569 Code(s): E87.6 - HYPOKALEMIA Status: Acute Current Visit: Yes (2) Palliative care patient SNOMED Code(s): 747044054, 075222631 Code(s): Z51.5 - ENCOUNTER FOR PALLIATIVE CARE Status: Acute Current Visit: Yes (3) Pleural effusion on left SNOMED Code(s): 58238004 Code(s): J90 - PLEURAL EFFUSION, NOT ELSEWHERE CLASSIFIED Status: Acute Current Visit: Yes (4) Weakness SNOMED Code(s): 53430398 Code(s): R53.1 - WEAKNESS Status: Acute Priority: High Current Visit: No (5) CKD (chronic kidney disease) stage 3, GFR 30-59 ml/min SNOMED Code(s): 473950292 Code(s): N18.3 - CHRONIC KIDNEY DISEASE, STAGE 3 (MODERATE) * DO NOT USE * Status: Chronic Priority: High Current Visit: No - Problem List Review Problem List Initiated/Reviewed/Updated: Yes - My Orders Last 24 Hours: My Active Orders 09/10/20 09:15 Calcium Carbonate [Tums] 500 mg PO BID Potassium Chloride [Klor-Con 10] 20 meq PO BID 09/10/20 09:18 Chest 2V [CR] Routine Sodium Chloride 0.65% [Bruce Nasal [place]] See Dose Instructions MARIA TERESA QID PRN 09/11/20 05:11 BASIC METABOLIC PANEL,BMP [CHEM] AM CBC WITH AUTO DIFF [HEME] AM - Plan Plan:: Shay appears to be significantly improved today. More alert and responsive. Potassium has corrected to 3.5. Will initiate oral potassium with recheck BMP daily. Discussed with Shay again in regards to further evaluation/treatment of large pleural effusion, which he declined. Admits his goal is to get stronger if capable but would like to be able to go home if he is worsening. Discussed with daughter and POA, Tiffany, Shay's progress today and she verbalized understanding. Is in agreement to treat locally at this time and in full understanding palliative status. PT ordered to evaluate and treat for strengthening/ambulation. 09/10/2020 Shay continues to show improvement. Did well with PT yesterday and has been able to ambulate on his own. Repeat chest x-ray with left sided pleural effusion. May consider CT of the chest for further evaluation. Will have PT continue to work with Shay. Increase potassium to 20 mEq twice daily as potassium is slightly low again at 3.1 today. Will initiate Tums with low calcium level. Repeat labs tomorrow.
[2020-09-10] MEDS: Insulin Glarg,Human.Rec.Analog 100 Unit/ML SUBCUT SCH (20:17)
[2020-09-11] MEDS: Levothyroxine 50 MCG Tab PO SCH (06:12)
[2020-09-11] MEDS: Pantoprazole 40 MG Tab.CR PO SCH (06:12)
[2020-09-11] MEDS: Furosemide 40 MG/4 ML VIAL IV SCH (07:58)
[2020-09-11] MEDS: Apixaban 5 MG Tab PO SCH ×2 (07:58→20:11)
[2020-09-11] MEDS: Sertraline 25 MG Tab PO SCH (07:58)
[2020-09-11] MEDS: Allopurinol 100 MG Tab PO SCH (07:59)
[2020-09-11] MEDS: Calcium Carbonate 500 MG Tab.Chew PO SCH ×2 (07:59→20:11)
[2020-09-11] MEDS: Potassium Chloride 10 MEQ Tab.ER PO SCH ×2 (07:59→20:11)
[2020-09-11] MEDS: Amiodarone 200 MG Tab PO SCH (07:59)
--- NOTE | 2020-09-11 13:51 | PCM.PN ---
- General Info Date of Service: 09/11/20 Functional Status: Reports: Pain Controlled, Tolerating Diet, Ambulating, Urinating - Review of Systems General: Reports: Weakness (generalized, but improved today. ) HEENT: Reports: No Symptoms Pulmonary: Reports: No Symptoms Cardiovascular: Reports: No Symptoms Gastrointestinal: Reports: No Symptoms Genitourinary: Reports: No Symptoms Musculoskeletal: Reports: No Symptoms Skin: Reports: No Symptoms Neurological: Reports: No Symptoms Psychiatric: Reports: No Symptoms - Patient Data Vitals - Most Recent: Last Vital Signs Temp 97.6 F 09/11/20 11:52 Pulse 98 09/11/20 07:54 Resp 18 09/11/20 11:52 BP 103/63 09/11/20 11:52 Pulse Ox 95 09/11/20 11:52 Weight - Most Recent: 244 lb Lab Results Last 24 Hours: Laboratory Results - last 24 hr 09/10/20 09/10/20 09/11/20 Range/Units 17:14 20:21 06:55 WBC 4.6 L (5.0-10.0) 10^3/uL RBC 4.11 L (4.50-6.00) 10^6/uL Hgb 12.6 L (14.0-18.0) g/dL Hct 38.7 L (40.0-54.0) % MCV 94.2 H (82.0-94.0) fL MCH 30.7 (27.0-32.0) pg MCHC 32.6 L (33.0-38.0) g/dL RDW Coeff of Treva 16.7 H (11.0-15.0) % Plt Count 101 L (150-400) 10^3/uL Neut % (Auto) 47.5 (35-85) % Lymph % (Auto) 33.7 (10-55) % [place] % (Auto) 14.3 (0-16) % Eos % (Auto) 4.3 (0-5) % Baso % (Auto) 0.2 (0-3) % Neut # (Auto) 2.18 (1.80-7.00) 10^3/uL Lymph # (Auto) 1.55 (1.00-4.80) 10^3/uL [place] # (Auto) 0.66 (0.00-0.80) 10^3/uL Eos # (Auto) 0.20 (0.00-0.45) 10^3/uL Baso # (Auto) 0.01 10^3/uL Sodium (136-145) mEq/L Potassium (3.5-5.0) mEq/L Chloride (98-106) mEq/L Carbon Dioxide (21-32) mmol/L BUN (7-18) mg/dL Creatinine (0.7-1.3) mg/dL Est Cr Clr Drug Dosing mL/min Estimated GFR (MDRD) (>=60) mL/min Glucose (75-99) mg/dL POC Glucose 137 H 192 H (75-105) mg/dl Calcium (8.4-10.1) mg/dL Magnesium (1.8-2.4) mg/dL 09/11/20 09/11/20 09/11/20 Range/Units 06:55 07:00 07:57 WBC (5.0-10.0) 10^3/uL RBC (4.50-6.00) 10^6/uL Hgb (14.0-18.0) g/dL Hct (40.0-54.0) % MCV (82.0-94.0) fL MCH (27.0-32.0) pg MCHC (33.0-38.0) g/dL RDW Coeff of Treva (11.0-15.0) % Plt Count (150-400) 10^3/uL Neut % (Auto) (35-85) % Lymph % (Auto) (10-55) % [place] % (Auto) (0-16) % Eos % (Auto) (0-5) % Baso % (Auto) (0-3) % Neut # (Auto) (1.80-7.00) 10^3/uL Lymph # (Auto) (1.00-4.80) 10^3/uL [place] # (Auto) (0.00-0.80) 10^3/uL Eos # (Auto) (0.00-0.45) 10^3/uL Baso # (Auto) 10^3/uL Sodium 144 (136-145) mEq/L Potassium 3.5 (3.5-5.0) mEq/L Chloride 107 H (98-106) mEq/L Carbon Dioxide 32 (21-32) mmol/L BUN 25 H (7-18) mg/dL Creatinine 2.1 H (0.7-1.3) mg/dL Est Cr Clr Drug Dosing 30.90 mL/min Estimated GFR (MDRD) 31 L (>=60) mL/min Glucose 108 H D (75-99) mg/dL POC Glucose 110 H (75-105) mg/dl Calcium 7.8 L (8.4-10.1) mg/dL Magnesium 1.7 L (1.8-2.4) mg/dL 09/11/20 Range/Units 11:48 WBC (5.0-10.0) 10^3/uL RBC (4.50-6.00) 10^6/uL Hgb (14.0-18.0) g/dL Hct (40.0-54.0) % MCV (82.0-94.0) fL MCH (27.0-32.0) pg MCHC (33.0-38.0) g/dL RDW Coeff of Treva (11.0-15.0) % Plt Count (150-400) 10^3/uL Neut % (Auto) (35-85) % Lymph % (Auto) (10-55) % [place] % (Auto) (0-16) % Eos % (Auto) (0-5) % Baso % (Auto) (0-3) % Neut # (Auto) (1.80-7.00) 10^3/uL Lymph # (Auto) (1.00-4.80) 10^3/uL [place] # (Auto) (0.00-0.80) 10^3/uL Eos # (Auto) (0.00-0.45) 10^3/uL Baso # (Auto) 10^3/uL Sodium (136-145) mEq/L Potassium (3.5-5.0) mEq/L Chloride (98-106) mEq/L Carbon Dioxide (21-32) mmol/L BUN (7-18) mg/dL Creatinine (0.7-1.3) mg/dL Est Cr Clr Drug Dosing mL/min Estimated GFR (MDRD) (>=60) mL/min Glucose (75-99) mg/dL POC Glucose 221 H (75-105) mg/dl Calcium (8.4-10.1) mg/dL Magnesium (1.8-2.4) mg/dL Med Orders - Current: Current Medications Acetaminophen (Tylenol) 650 mg PO Q4H PRN PRN Reason: Pain (Mild 1-3)/fever Last Admin: 09/09/20 08:38 Dose: 650 mg Documented by: Allopurinol (Zyloprim) 100 mg PO DAILY [facility] Last Admin: 09/11/20 07:59 Dose: 100 mg Documented by: Amiodarone HCl (Cordarone) 200 mg PO DAILY [facility] Last Admin: 09/11/20 07:59 Dose: 200 mg Documented by: Apixaban (Eliquis) 5 mg PO BID [facility] Last Admin: 09/11/20 07:58 Dose: 5 mg Documented by: Calcium Carbonate/Glycine (Tums) 500 mg PO BID [facility] Last Admin: 09/11/20 07:59 Dose: 500 mg Documented by: Furosemide (Lasix) 40 mg IV DAILY [facility] Last Admin: 09/11/20 07:58 Dose: 40 mg Documented by: Insulin Glargine (Lantus) 35 unit SUBCUT BEDTIME [facility] Last Admin: 09/10/20 20:17 Dose: 35 unit Documented by: Levothyroxine Sodium (Synthroid) 50 mcg PO 0700 [facility] Last Admin: 09/11/20 06:12 Dose: 50 mcg Documented by: Oxyquinoline Sulfate (Bag [place] Oint) 1 oz TOP ASDIRECTED PRN PRN Reason: Rash Last Admin: 09/09/20 08:36 Dose: 1 applic Documented by: Pantoprazole Sodium (Protonix) 40 mg PO DAILY@0700 [facility] Last Admin: 09/11/20 06:12 Dose: 40 mg Documented by: Potassium Chloride (Klor-Con 10) 20 meq PO BID [facility] Last Admin: 09/11/20 07:59 Dose: 20 meq Documented by: Sertraline HCl (Zoloft) 50 mg PO DAILY [facility] Last Admin: 09/11/20 07:58 Dose: 50 mg Documented by: Sodium Chloride (Saline Flush) 10 ml FLUSH ASDIRECTED PRN PRN Reason: Keep Vein Open Sodium Chloride ([place] Nasal [place]) 0 ml MARIA TERESA QID PRN PRN Reason: Other Last Admin: 09/10/20 11:01 Dose: 1 spray Documented by: Discontinued Medications Sodium Chloride (Normal Saline) 100 mls @ 25 mls/hr IV ONETIME ONE Stop: 09/08/20 17:29 Last Admin: 09/08/20 16:31 Dose: Not Given Documented by: Sodium Chloride (Normal Saline) 100 mls @ 25 mls/hr IV ONETIME ONE Stop: 09/08/20 18:59 Last Admin: 09/08/20 15:35 Dose: 25 mls/hr Documented by: Potassium Chloride (Kcl 40 Meq In Water 100 Ml) 100 mls @ 25 mls/hr IV ONETIME ONE Stop: 09/08/20 18:59 Last Admin: 09/08/20 16:31 Dose: Not Given Documented by: Potassium Chloride 40 meq/ (Premix) 100 mls @ 25 mls/hr IV ONETIME ONE Stop: 09/08/20 18:59 Last Admin: 09/08/20 15:35 Dose: 25 mls/hr Documented by: Potassium Chloride (Klor-Con 10) 20 meq PO DAILY [facility] Last Admin: 09/10/20 07:55 Dose: 20 meq Documented by: - Exam General: Alert, Oriented, Cooperative, No Acute Distress Lungs: Clear to Auscultation, Normal Respiratory Effort, Decreased Breath Sounds (MANSOOR) Cardiovascular: Regular Rate, Regular Rhythm Back Exam: Normal Inspection Extremities: Normal Inspection, Normal Range of Motion, Non-Tender, No Pedal Edema, Normal Capillary Refill Peripheral Pulses: 2+: Radial (L), Radial (R), Posterior Tibial (L), Posterior Tibial (R) Skin: Warm, Dry, Intact Psy/Mental Status: Normal Affect, Normal Mood Sepsis Event Note - Evaluation Sepsis Screening Result: No Definite Risk - Focused Exam Vital Signs: Vital Signs Temp Pulse Resp BP Pulse Ox 09/11/20 11:52 97.6 F 18 103/63 95 09/11/20 07:54 97.3 F 98 20 119/70 93 L 09/11/20 04:00 97.3 F 90 20 130/73 94 L - Problem List Review Problem List Initiated/Reviewed/Updated: Yes - My Orders Last 24 Hours: My Active Orders 09/12/20 05:00 BASIC METABOLIC PANEL,BMP [CHEM] DAILY CBC WITH AUTO DIFF [HEME] DAILY 09/13/20 05:00 BASIC METABOLIC PANEL,BMP [CHEM] DAILY CBC WITH AUTO DIFF [HEME] DAILY - Plan Plan:: Shay appears to be significantly improved today. More alert and responsive. Potassium has corrected to 3.5. Will initiate oral potassium with recheck BMP daily. Discussed with Shay again in regards to further evaluation/treatment of large pleural effusion, which he declined. Admits his goal is to get stronger if capable but would like to be able to go home if he is worsening. Discussed with daughter and Tiffany LARRY, Shay's progress today and she verbalized understanding. Is in agreement to treat locally at this time and in full understanding palliative status. PT ordered to evaluate and treat for strengthening/ambulation. 09/10/2020 Shay continues to show improvement. Did well with PT yesterday and has been able to ambulate on his own. Repeat chest x-ray with left sided pleural effusion. May consider CT of the chest for further evaluation. Will have PT continue to work with Shay. Increase potassium to 20 mEq twice daily as potassium is slightly low again at 3.1 today. Will initiate Tums with low calcium level. Repeat labs tomorrow. 09/11/2020 1000am This patient continues to show improvement from reported. The patient today on his own was able to sit up in bed without assistance. He also was able to get up from bed and ambulate with a RN at his side, but no assistance. Patient MANSOOR is decreased, known pleural effusion, Cedrick PENDLETON recommended CT, but patient has denied and wants no treatment of this. Patient remains on oxygen today with saturation at 95% on 2L NC, will attempt to wean. Calcium level remains low, but appears to be chronic with low values recorded in Jul. Did a MG level today and is 1.7, just slightly low no tx at this time. His CR is 2.1, chronic as well. Otherwise labs are baseline and unremarkable. Patient lives at home alone. Will continue admit at this time due to be reliant on oxygen, will attempt a wean. Patient is alert and oriented today. Will reevaluation tomorrow.
[2020-09-11] MEDS: Insulin Glarg,Human.Rec.Analog 100 Unit/ML SUBCUT SCH (20:14)
[2020-09-12] MEDS: Levothyroxine 50 MCG Tab PO SCH (06:26)
[2020-09-12] MEDS: Pantoprazole 40 MG Tab.CR PO SCH (06:26)
[2020-09-12] MEDS: Sertraline 25 MG Tab PO SCH (07:47)
[2020-09-12] MEDS: Allopurinol 100 MG Tab PO SCH (07:47)
[2020-09-12] MEDS: Calcium Carbonate 500 MG Tab.Chew PO SCH (07:47)
[2020-09-12] MEDS: Furosemide 40 MG/4 ML VIAL IV SCH (07:48)
[2020-09-12] MEDS: Apixaban 5 MG Tab PO SCH (07:48)
[2020-09-12] MEDS: Amiodarone 200 MG Tab PO SCH (07:48)
[2020-09-12] MEDS: Potassium Chloride 10 MEQ Tab.ER PO SCH (07:48)
[2020-09-12 07:49] VITALS: BP 118/73
[2020-09-12 10:34] VITALS: PULSE 98
== END 2020-09-12 10:41 | disposition swing bed (61) | DRG 948 ==
LOC: CC.FCMC 11:40 → UNDOADMIN 11:50 → CC.MS 11:50
PROVIDERS: ADMIT Physician Assistant Medical; ATTEND Family Medicine
DX: R53.1 Weakness (principal); I13.0 Hypertensive heart and chronic kidney disease with heart failure and stage 1 through stage 4 chronic kidney disease, or unspecified chronic kidney disease; I48.92 Unspecified atrial flutter; E87.6 Hypokalemia; Z75.1 Person awaiting admission to adequate facility elsewhere; Z51.5 Encounter for palliative care; M19.90 Unspecified osteoarthritis, unspecified site; N40.0 Benign prostatic hyperplasia without lower urinary tract symptoms; M54.5 Low back pain; G89.29 Other chronic pain; I25.10 Atherosclerotic heart disease of native coronary artery without angina pectoris; F32.9 Major depressive disorder, single episode, unspecified; E11.40 Type 2 diabetes mellitus with diabetic neuropathy, unspecified; N52.9 Male erectile dysfunction, unspecified; M10.9 Gout, unspecified; E78.5 Hyperlipidemia, unspecified; E03.9 Hypothyroidism, unspecified; E66.9 Obesity, unspecified; E55.9 Vitamin D deficiency, unspecified; Z20.828 Contact with and (suspected) exposure to other viral communicable diseases; I50.9 Heart failure, unspecified; N18.30 Chronic kidney disease, stage 3 unspecified; Z88.6 Allergy status to analgesic agent; Z86.69 Personal history of other diseases of the nervous system and sense organs; Z87.442 Personal history of urinary calculi; Z98.49 Cataract extraction status, unspecified eye; Z98.52 Vasectomy status; Z86.73 Personal history of transient ischemic attack (TIA), and cerebral infarction without residual deficits; Z99.81 Dependence on supplemental oxygen; Z99.3 Dependence on wheelchair
CPT/HCPCS: 36415; 70450; 71046; 80048; 80053; 81001; 82962; 83735; 83880; 85025; 86140; 87045; 87046; 87493; 89055; 97110-GP; 97161-GP; A9270-GY; J1815-GY; J1940; J3480; U0002

== ENCOUNTER 2020-09-12 10:35 | Inpatient (IN) | payer MEDICARE, BC ==
[2020-09-12] MEDS ORDERED: 50% Dextrose in Water 50 ML Syringe IV PRN (12:28)
[2020-09-12] MEDS ORDERED: Glucagon,Human Recombinant 1 MG Vial IM PRN (12:28)
--- NOTE | 2020-09-12 12:40 | PCM.PN ---
- General Info Date of Service: 09/12/20 Functional Status: Reports: Pain Controlled, Tolerating Diet, Ambulating, Urinating - Review of Systems General: Reports: No Symptoms HEENT: Reports: No Symptoms Pulmonary: Denies: Shortness of Breath (BASELINE, NO MORE THAN USUAL PER PATIENT. ), Cough Cardiovascular: Reports: No Symptoms Gastrointestinal: Reports: No Symptoms Genitourinary: Reports: No Symptoms Musculoskeletal: Reports: No Symptoms Skin: Reports: No Symptoms Neurological: Reports: No Symptoms Psychiatric: Reports: No Symptoms - Patient Data Med Orders - Current: Current Medications Allopurinol (Zyloprim) 100 mg PO DAILY [facility] Amiodarone HCl (Cordarone) 200 mg PO DAILY [facility] Dextrose/Water (Dextrose 50% In Water) 50 ml IV ASDIRECTED PRN PRN Reason: Hypoglycemia Glucagon (Glucagen) 1 mg IM ASDIRECTED PRN PRN Reason: Hypoglycemia Levothyroxine Sodium (Synthroid) 50 mcg PO DAILY [facility] Loperamide HCl (Imodium) 2 mg PO DAILY PRN PRN Reason: Diarrhea Multivitamins/Minerals/Vitamin C (Tab-A-George) tab PO DAILY [facility] Non-Formulary Medication (Vitamin E [Vitamin E]) 400 unit PO DAILY [facility] Pantoprazole Sodium (Protonix) 40 mg PO DAILY@0700 [facility] Sertraline HCl (Zoloft) 50 mg PO DAILY [facility] - Exam General: Alert, Oriented, Cooperative, No Acute Distress Neck: Supple, Trachea Midline, No JVD Lungs: Clear to Auscultation (Right upper and lower), Normal Respiratory Effort, Decreased Breath Sounds (LEFT upper and lower lobe) Cardiovascular: Regular Rate, Regular Rhythm GI/Abdominal Exam: Normal Bowel Sounds, Soft, Non-Tender, No Organomegaly Back Exam: Normal Inspection, Full Range of Motion Extremities: Normal Inspection, Normal Range of Motion, Non-Tender, No Pedal Edema, Normal Capillary Refill Peripheral Pulses: 2+: Radial (L), Radial (R), Posterior Tibial (L), Posterior Tibial (R) Skin: Warm, Dry, Intact Neurological: No New Focal Deficit, Normal Gait, Normal Speech Psy/Mental Status: Alert, Normal Affect, Normal Mood Sepsis Event Note - Evaluation Sepsis Screening Result: No Definite Risk - Problem List Review Problem List Initiated/Reviewed/Updated: Yes - My Orders Last 24 Hours: My Active Orders 09/12/20 12:28 Dextrose 50% in Water 50 ml IV ASDIRECTED PRN Glucagon,Human Recombinant [GlucaGen] 1 mg IM ASDIRECTED PRN Loperamide [Imodium] 2 mg PO DAILY PRN 09/12/20 20:00 Apixaban [Eliquis] 5 mg PO BID Insulin Glarg,Human.Rec.Analog [LantUS] 35 unit SUBCUT BEDTIME 09/13/20 07:00 Pantoprazole [ProTONIX] 40 mg PO DAILY@0700 09/13/20 08:00 Amiodarone [Cordarone] 200 mg PO DAILY Aspirin [Halfprin] 81 mg PO DAILY Calcium Carb/D3/Magnesium/Zinc [Negrito Mag Zinc + D3] 1 tab PO DAILY Cholecalciferol (Vitamin D3) 5,000 unit PO DAILY Furosemide [Lasix] 40 mg PO DAILY Levothyroxine [Synthroid] 50 mcg PO DAILY Multivitamins [Tab-A-George] 1 each PO DAILY Sertraline [Zoloft] 50 mg PO DAILY Vitamin E [Vitamin E] 400 unit PO DAILY allopurinoL [Zyloprim] 100 mg PO DAILY atorvaSTATin [Lipitor] 10 mg PO DAILY - Plan Plan:: 09/12/2020 1200 PLEASE USE THIS NOTE MY DISCHARGE TO THE [facility] TODAY. USE H&P. This patient [facility] today for PT strengthening and possible placement with director social, that will discuss this tomorrow. The patient has a known pleural effusion with decreased breath sounds on CXR. He has reported since his stay that he does not want any interventions for this. However, today the patient when I discussed this, wanted a ct scan and possible chest tube or interventions. I explained all risk vs benefits to the patient and he has accepted this wanting to be done. The patient during this decision is fully and alert and oriented. Due to the patient drastic change in treatment, I had Jeanette PAN come into the room again with me to discuss this with the patient, I discussed this time this would require a transfer to a higher level facility. He then has denied this to be done. He reports he does not want to be transferred. So, at this time we are not doing a CT scan or further treatment. I did discuss with im that he can change his mind at any time, he voices back understanding of this. Again, the patient is fully alert and oriented and does not want treatment of the pleural effusion of further evaluation of this. The patient today has been able to get up with limited assistance. His labs are baseline. The patient has been weaned of oxygen currently, and is 91% RA. He reports he does not feel short of breath. Will admit to [facility] for PT.
[2020-09-12] MEDS ORDERED: Docusate Sodium 100 MG Cap PO PRN (12:57)
[2020-09-12] MEDS ORDERED: Calcium Carbonate 500 MG Tab.Chew PO ONE (14:27)
[2020-09-12] MEDS: Potassium Chloride 10 MEQ Tab.ER PO SCH (17:24)
[2020-09-12] MEDS: Apixaban 5 MG Tab PO SCH (20:29)
[2020-09-12] MEDS: Calcium Carbonate 500 MG Tab.Chew PO SCH (20:29)
[2020-09-12] MEDS: Insulin Glarg,Human.Rec.Analog 100 Unit/ML SUBCUT SCH (20:33)
[2020-09-13] MEDS: Levothyroxine 50 MCG Tab PO SCH (06:33)
[2020-09-13] MEDS: Pantoprazole 40 MG Tab.CR PO SCH (06:33)
[2020-09-13] MEDS ORDERED: CALCIUM CARB PO SCH (08:00)
[2020-09-13] MEDS ORDERED: ZINC PO SCH (08:00)
[2020-09-13] MEDS ORDERED: MAGNESIUM PO SCH (08:00)
[2020-09-13] MEDS ORDERED: D3 PO SCH (08:00)
[2020-09-13] MEDS ORDERED: [UNRECOGNIZED DRUG - OTHER] PO SCH (08:00)
[2020-09-13] MEDS: Apixaban 5 MG Tab PO SCH ×2 (08:03→19:24)
[2020-09-13] MEDS: Calcium Carbonate 500 MG Tab.Chew PO SCH ×2 (08:03→19:24)
[2020-09-13] MEDS: Multivitamin Tab PO SCH (08:03)
[2020-09-13] MEDS: Aspirin 81 MG Tab.EC PO SCH (08:03)
[2020-09-13] MEDS: Furosemide 40 MG Tab PO SCH (08:03)
[2020-09-13] MEDS: Cholecalciferol (Vitamin D3) 25 MCG Tab PO SCH (08:04)
[2020-09-13] MEDS: atorvaSTATin 10 MG Tab PO SCH (08:04)
[2020-09-13] MEDS: Amiodarone 200 MG Tab PO SCH (08:04)
[2020-09-13] MEDS: Sertraline 25 MG Tab PO SCH (08:04)
[2020-09-13] MEDS: Vitamin E (dl-alpha-tocopherol acetate) 400 Unit Cap PO SCH (08:04)
[2020-09-13] MEDS: Allopurinol 100 MG Tab PO SCH (08:04)
[2020-09-13] MEDS: Potassium Chloride 10 MEQ Tab.ER PO SCH ×2 (08:04→17:29)
[2020-09-13] MEDS: Insulin Glarg,Human.Rec.Analog 100 Unit/ML SUBCUT SCH (19:25)
[2020-09-14] MEDS: Loperamide 2 MG Cap PO PRN (00:46)
[2020-09-14] MEDS: Pantoprazole 40 MG Tab.CR PO SCH (06:11)
[2020-09-14] MEDS: Levothyroxine 50 MCG Tab PO SCH (06:11)
[2020-09-14] MEDS: Aspirin 81 MG Tab.EC PO SCH (08:36)
[2020-09-14] MEDS: Cholecalciferol (Vitamin D3) 25 MCG Tab PO SCH (08:36)
[2020-09-14] MEDS: Amiodarone 200 MG Tab PO SCH (08:37)
[2020-09-14] MEDS: Multivitamin Tab PO SCH (08:37)
[2020-09-14] MEDS: Allopurinol 100 MG Tab PO SCH (08:37)
[2020-09-14] MEDS: Potassium Chloride 10 MEQ Tab.ER PO SCH ×2 (08:37→17:24)
[2020-09-14] MEDS: Apixaban 5 MG Tab PO SCH ×2 (08:37→19:49)
[2020-09-14] MEDS: Vitamin E (dl-alpha-tocopherol acetate) 400 Unit Cap PO SCH (08:37)
[2020-09-14] MEDS: Sertraline 25 MG Tab PO SCH (08:37)
[2020-09-14] MEDS: Calcium Carbonate 500 MG Tab.Chew PO SCH ×2 (08:37→19:49)
[2020-09-14] MEDS: Furosemide 40 MG Tab PO SCH (08:38)
[2020-09-14] MEDS: atorvaSTATin 10 MG Tab PO SCH (08:38)
[2020-09-14] MEDS: Insulin Glarg,Human.Rec.Analog 100 Unit/ML SUBCUT SCH (19:54)
[2020-09-15] MEDS: Loperamide 2 MG Cap PO PRN (00:44)
[2020-09-15] MEDS: Furosemide 40 MG Tab PO SCH (08:15)
[2020-09-15] MEDS: Cholecalciferol (Vitamin D3) 25 MCG Tab PO SCH (08:15)
[2020-09-15] MEDS: Apixaban 5 MG Tab PO SCH ×2 (08:15→19:32)
[2020-09-15] MEDS: Levothyroxine 50 MCG Tab PO SCH (08:15)
[2020-09-15] MEDS: Amiodarone 200 MG Tab PO SCH (08:15)
[2020-09-15] MEDS: Potassium Chloride 10 MEQ Tab.ER PO SCH ×2 (08:15→17:43)
[2020-09-15] MEDS: Sertraline 25 MG Tab PO SCH (08:16)
[2020-09-15] MEDS: atorvaSTATin 10 MG Tab PO SCH (08:16)
[2020-09-15] MEDS: Aspirin 81 MG Tab.EC PO SCH (08:16)
[2020-09-15] MEDS: Multivitamin Tab PO SCH (08:16)
[2020-09-15] MEDS: Pantoprazole 40 MG Tab.CR PO SCH (08:16)
[2020-09-15] MEDS: Vitamin E (dl-alpha-tocopherol acetate) 400 Unit Cap PO SCH (08:16)
[2020-09-15] MEDS: Allopurinol 100 MG Tab PO SCH (08:17)
[2020-09-15] MEDS: Calcium Carbonate 500 MG Tab.Chew PO SCH ×2 (08:17→19:32)
[2020-09-15] MEDS: Insulin Glarg,Human.Rec.Analog 100 Unit/ML SUBCUT SCH (19:32)
[2020-09-16] MEDS: Levothyroxine 50 MCG Tab PO SCH (06:01)
[2020-09-16] MEDS: Pantoprazole 40 MG Tab.CR PO SCH (06:01)
[2020-09-16] MEDS: Amiodarone 200 MG Tab PO SCH (07:50)
[2020-09-16] MEDS: Apixaban 5 MG Tab PO SCH ×2 (07:50→20:29)
[2020-09-16] MEDS: Multivitamin Tab PO SCH (07:50)
[2020-09-16] MEDS: atorvaSTATin 10 MG Tab PO SCH (07:51)
[2020-09-16] MEDS: Potassium Chloride 10 MEQ Tab.ER PO SCH ×2 (07:51→17:27)
[2020-09-16] MEDS: Sertraline 25 MG Tab PO SCH (07:52)
[2020-09-16] MEDS: Furosemide 40 MG Tab PO SCH (07:53)
[2020-09-16] MEDS: Allopurinol 100 MG Tab PO SCH (07:53)
[2020-09-16] MEDS: Vitamin E (dl-alpha-tocopherol acetate) 400 Unit Cap PO SCH (07:53)
[2020-09-16] MEDS: Aspirin 81 MG Tab.EC PO SCH (07:53)
[2020-09-16] MEDS: Calcium Carbonate 500 MG Tab.Chew PO SCH ×2 (07:54→20:29)
[2020-09-16] MEDS: Cholecalciferol (Vitamin D3) 25 MCG Tab PO SCH (17:19)
[2020-09-16] MEDS: Insulin Glarg,Human.Rec.Analog 100 Unit/ML SUBCUT SCH (20:29)
[2020-09-16] MEDS: Loperamide 2 MG Cap PO PRN (21:06)
[2020-09-17] MEDS: Levothyroxine 50 MCG Tab PO SCH (06:29)
[2020-09-17] MEDS: Pantoprazole 40 MG Tab.CR PO SCH (06:29)
[2020-09-17] MEDS: Cholecalciferol (Vitamin D3) 25 MCG Tab PO SCH (08:03)
[2020-09-17] MEDS: Potassium Chloride 10 MEQ Tab.ER PO SCH ×2 (08:03→16:46)
[2020-09-17] MEDS: Amiodarone 200 MG Tab PO SCH (08:03)
[2020-09-17] MEDS: Aspirin 81 MG Tab.EC PO SCH (08:03)
[2020-09-17] MEDS: Multivitamin Tab PO SCH (08:03)
[2020-09-17] MEDS: Apixaban 5 MG Tab PO SCH ×2 (08:03→19:51)
[2020-09-17] MEDS: Vitamin E (dl-alpha-tocopherol acetate) 400 Unit Cap PO SCH (08:04)
[2020-09-17] MEDS: Calcium Carbonate 500 MG Tab.Chew PO SCH ×2 (08:04→19:51)
[2020-09-17] MEDS: Furosemide 40 MG Tab PO SCH (08:04)
[2020-09-17] MEDS: Allopurinol 100 MG Tab PO SCH (08:04)
[2020-09-17] MEDS: Sertraline 25 MG Tab PO SCH (08:04)
[2020-09-17] MEDS: atorvaSTATin 10 MG Tab PO SCH (08:04)
[2020-09-17] MEDS: Insulin Glarg,Human.Rec.Analog 100 Unit/ML SUBCUT SCH (19:51)
[2020-09-18] MEDS: Pantoprazole 40 MG Tab.CR PO SCH (06:57)
[2020-09-18] MEDS: Levothyroxine 50 MCG Tab PO SCH (06:57)
[2020-09-18] MEDS: Calcium Carbonate 500 MG Tab.Chew PO SCH ×2 (08:26→19:20)
[2020-09-18] MEDS: Cholecalciferol (Vitamin D3) 25 MCG Tab PO SCH (08:26)
[2020-09-18] MEDS: Sertraline 25 MG Tab PO SCH (08:27)
[2020-09-18] MEDS: Furosemide 40 MG Tab PO SCH (08:27)
[2020-09-18] MEDS: Potassium Chloride 10 MEQ Tab.ER PO SCH ×2 (08:27→17:22)
[2020-09-18] MEDS: Allopurinol 100 MG Tab PO SCH (08:28)
[2020-09-18] MEDS: Aspirin 81 MG Tab.EC PO SCH (08:28)
[2020-09-18] MEDS: Multivitamin Tab PO SCH (08:28)
[2020-09-18] MEDS: atorvaSTATin 10 MG Tab PO SCH (08:28)
[2020-09-18] MEDS: Vitamin E (dl-alpha-tocopherol acetate) 400 Unit Cap PO SCH (08:28)
[2020-09-18] MEDS: Amiodarone 200 MG Tab PO SCH (08:28)
[2020-09-18] MEDS: Apixaban 5 MG Tab PO SCH ×2 (08:29→19:20)
[2020-09-18] MEDS: Loperamide 2 MG Cap PO PRN (17:46)
[2020-09-18] MEDS: Insulin Glarg,Human.Rec.Analog 100 Unit/ML SUBCUT SCH (20:12)
[2020-09-19] MEDS: Pantoprazole 40 MG Tab.CR PO SCH (06:59)
[2020-09-19] MEDS: Levothyroxine 50 MCG Tab PO SCH (06:59)
[2020-09-19] MEDS: Cholecalciferol (Vitamin D3) 25 MCG Tab PO SCH (08:21)
[2020-09-19] MEDS: Potassium Chloride 10 MEQ Tab.ER PO SCH ×2 (08:22→17:04)
[2020-09-19] MEDS: Allopurinol 100 MG Tab PO SCH (08:22)
[2020-09-19] MEDS: Furosemide 40 MG Tab PO SCH (08:22)
[2020-09-19] MEDS: Amiodarone 200 MG Tab PO SCH (08:22)
[2020-09-19] MEDS: Calcium Carbonate 500 MG Tab.Chew PO SCH ×2 (08:22→19:30)
[2020-09-19] MEDS: atorvaSTATin 10 MG Tab PO SCH (08:22)
[2020-09-19] MEDS: Vitamin E (dl-alpha-tocopherol acetate) 400 Unit Cap PO SCH (08:23)
[2020-09-19] MEDS: Apixaban 5 MG Tab PO SCH ×2 (08:23→19:30)
[2020-09-19] MEDS: Aspirin 81 MG Tab.EC PO SCH (08:23)
[2020-09-19] MEDS: Sertraline 25 MG Tab PO SCH (08:23)
[2020-09-19] MEDS: Multivitamin Tab PO SCH (08:23)
[2020-09-19] MEDS: Insulin Glarg,Human.Rec.Analog 100 Unit/ML SUBCUT SCH (20:38)
[2020-09-20] MEDS: Pantoprazole 40 MG Tab.CR PO SCH (06:25)
[2020-09-20] MEDS: Levothyroxine 50 MCG Tab PO SCH (06:25)
[2020-09-20] MEDS: Cholecalciferol (Vitamin D3) 25 MCG Tab PO SCH (08:23)
[2020-09-20] MEDS: Allopurinol 100 MG Tab PO SCH (08:24)
[2020-09-20] MEDS: atorvaSTATin 10 MG Tab PO SCH (08:24)
[2020-09-20] MEDS: Multivitamin Tab PO SCH (08:24)
[2020-09-20] MEDS: Vitamin E (dl-alpha-tocopherol acetate) 400 Unit Cap PO SCH (08:24)
[2020-09-20] MEDS: Calcium Carbonate 500 MG Tab.Chew PO SCH ×2 (08:24→20:02)
[2020-09-20] MEDS: Furosemide 40 MG Tab PO SCH (08:25)
[2020-09-20] MEDS: Amiodarone 200 MG Tab PO SCH (08:25)
[2020-09-20] MEDS: Potassium Chloride 10 MEQ Tab.ER PO SCH ×2 (08:25→16:43)
[2020-09-20] MEDS: Aspirin 81 MG Tab.EC PO SCH (08:25)
[2020-09-20] MEDS: Sertraline 25 MG Tab PO SCH (08:25)
[2020-09-20] MEDS: Apixaban 5 MG Tab PO SCH ×2 (08:25→20:02)
[2020-09-20] MEDS: Loperamide 2 MG Cap PO PRN (13:48)
[2020-09-20] MEDS: Insulin Glarg,Human.Rec.Analog 100 Unit/ML SUBCUT SCH (20:12)
[2020-09-21] MEDS: Levothyroxine 50 MCG Tab PO SCH (06:04)
[2020-09-21] MEDS: Pantoprazole 40 MG Tab.CR PO SCH (06:04)
[2020-09-21] MEDS: atorvaSTATin 10 MG Tab PO SCH (08:44)
[2020-09-21] MEDS: Sertraline 25 MG Tab PO SCH (08:44)
[2020-09-21] MEDS: Allopurinol 100 MG Tab PO SCH (08:44)
[2020-09-21] MEDS: Potassium Chloride 10 MEQ Tab.ER PO SCH ×2 (08:44→16:58)
[2020-09-21] MEDS: Cholecalciferol (Vitamin D3) 25 MCG Tab PO SCH (08:44)
[2020-09-21] MEDS: Multivitamin Tab PO SCH (08:44)
[2020-09-21] MEDS: Aspirin 81 MG Tab.EC PO SCH (08:45)
[2020-09-21] MEDS: Calcium Carbonate 500 MG Tab.Chew PO SCH ×2 (08:45→19:41)
[2020-09-21] MEDS: Vitamin E (dl-alpha-tocopherol acetate) 400 Unit Cap PO SCH (08:45)
[2020-09-21] MEDS: Amiodarone 200 MG Tab PO SCH (08:45)
[2020-09-21] MEDS: Furosemide 40 MG Tab PO SCH (08:45)
[2020-09-21] MEDS: Apixaban 5 MG Tab PO SCH ×2 (08:45→19:41)
[2020-09-21] MEDS: Insulin Glarg,Human.Rec.Analog 100 Unit/ML SUBCUT SCH (19:42)
[2020-09-22] MEDS: Levothyroxine 50 MCG Tab PO SCH (06:48)
[2020-09-22] MEDS: Pantoprazole 40 MG Tab.CR PO SCH (06:48)
[2020-09-22] MEDS: Cholecalciferol (Vitamin D3) 25 MCG Tab PO SCH (08:14)
[2020-09-22] MEDS: Calcium Carbonate 500 MG Tab.Chew PO SCH ×2 (08:15→19:36)
[2020-09-22] MEDS: atorvaSTATin 10 MG Tab PO SCH (08:15)
[2020-09-22] MEDS: Multivitamin Tab PO SCH (08:15)
[2020-09-22] MEDS: Aspirin 81 MG Tab.EC PO SCH (08:15)
[2020-09-22] MEDS: Furosemide 40 MG Tab PO SCH (08:15)
[2020-09-22] MEDS: Sertraline 25 MG Tab PO SCH (08:15)
[2020-09-22] MEDS: Apixaban 5 MG Tab PO SCH ×2 (08:15→19:36)
[2020-09-22] MEDS: Amiodarone 200 MG Tab PO SCH (08:15)
[2020-09-22] MEDS: Allopurinol 100 MG Tab PO SCH (08:15)
[2020-09-22] MEDS: Vitamin E (dl-alpha-tocopherol acetate) 400 Unit Cap PO SCH (08:15)
[2020-09-22] MEDS: Potassium Chloride 10 MEQ Tab.ER PO SCH (08:15)
[2020-09-22] MEDS: Insulin Glarg,Human.Rec.Analog 100 Unit/ML SUBCUT SCH (19:44)
[2020-09-23] MEDS: Calcium Carbonate 500 MG Tab.Chew PO SCH ×2 (07:00→19:25)
[2020-09-23] MEDS: Cholecalciferol (Vitamin D3) 25 MCG Tab PO SCH (07:00)
[2020-09-23] MEDS: Pantoprazole 40 MG Tab.CR PO SCH (07:00)
[2020-09-23] MEDS: Vitamin E (dl-alpha-tocopherol acetate) 400 Unit Cap PO SCH (07:00)
[2020-09-23] MEDS: Amiodarone 200 MG Tab PO SCH (07:01)
[2020-09-23] MEDS: Allopurinol 100 MG Tab PO SCH (07:01)
[2020-09-23] MEDS: Apixaban 5 MG Tab PO SCH ×2 (07:01→19:25)
[2020-09-23] MEDS: atorvaSTATin 10 MG Tab PO SCH (07:01)
[2020-09-23] MEDS: Sertraline 25 MG Tab PO SCH (07:01)
[2020-09-23] MEDS: Levothyroxine 50 MCG Tab PO SCH (07:02)
[2020-09-23] MEDS: Aspirin 81 MG Tab.EC PO SCH (07:02)
[2020-09-23] MEDS: Multivitamin Tab PO SCH (07:02)
[2020-09-23] MEDS: Furosemide 40 MG Tab PO SCH (07:02)
[2020-09-23] MEDS: Insulin Glarg,Human.Rec.Analog 100 Unit/ML SUBCUT SCH (19:32)
[2020-09-24] MEDS: Sertraline 25 MG Tab PO SCH (07:00)
[2020-09-24] MEDS: Apixaban 5 MG Tab PO SCH ×2 (07:00→20:01)
[2020-09-24] MEDS: Calcium Carbonate 500 MG Tab.Chew PO SCH ×2 (07:00→20:01)
[2020-09-24] MEDS: Cholecalciferol (Vitamin D3) 25 MCG Tab PO SCH (07:00)
[2020-09-24] MEDS: Vitamin E (dl-alpha-tocopherol acetate) 400 Unit Cap PO SCH (07:00)
[2020-09-24] MEDS: Furosemide 40 MG Tab PO SCH (07:00)
[2020-09-24] MEDS: Levothyroxine 50 MCG Tab PO SCH (07:01)
[2020-09-24] MEDS: Pantoprazole 40 MG Tab.CR PO SCH (07:01)
[2020-09-24] MEDS: Multivitamin Tab PO SCH (07:01)
[2020-09-24] MEDS: atorvaSTATin 10 MG Tab PO SCH (07:01)
[2020-09-24] MEDS: Allopurinol 100 MG Tab PO SCH (07:01)
[2020-09-24] MEDS: Aspirin 81 MG Tab.EC PO SCH (07:01)
[2020-09-24] MEDS: Amiodarone 200 MG Tab PO SCH (07:02)
[2020-09-24] MEDS ORDERED: Glucagon,Human Recombinant 1 MG Vial IM PRN (09:05)
[2020-09-24] MEDS ORDERED: 50% Dextrose in Water 50 ML Syringe IV PRN (09:05)
[2020-09-24] MEDS: Insulin Lispro 100 Units/ML 3 ML Vial SUBCUT SCH ×2 (12:02→17:30)
[2020-09-24] MEDS: Loperamide 2 MG Cap PO PRN (15:13)
[2020-09-24] MEDS: Insulin Glarg,Human.Rec.Analog 100 Unit/ML SUBCUT SCH (20:02)
[2020-09-25] MEDS: atorvaSTATin 10 MG Tab PO SCH (07:18)
[2020-09-25] MEDS: Pantoprazole 40 MG Tab.CR PO SCH (07:18)
[2020-09-25] MEDS: Aspirin 81 MG Tab.EC PO SCH (07:18)
[2020-09-25] MEDS: Vitamin E (dl-alpha-tocopherol acetate) 400 Unit Cap PO SCH (07:18)
[2020-09-25] MEDS: Apixaban 5 MG Tab PO SCH ×2 (07:18→19:24)
[2020-09-25] MEDS: Amiodarone 200 MG Tab PO SCH (07:19)
[2020-09-25] MEDS: Levothyroxine 50 MCG Tab PO SCH (07:19)
[2020-09-25] MEDS: Allopurinol 100 MG Tab PO SCH (07:19)
[2020-09-25] MEDS: Multivitamin Tab PO SCH (07:19)
[2020-09-25] MEDS: Calcium Carbonate 500 MG Tab.Chew PO SCH ×2 (07:20→19:24)
[2020-09-25] MEDS: Sertraline 25 MG Tab PO SCH (07:20)
[2020-09-25] MEDS: Furosemide 40 MG Tab PO SCH (07:20)
[2020-09-25] MEDS: Cholecalciferol (Vitamin D3) 25 MCG Tab PO SCH (07:20)
[2020-09-25] MEDS: Insulin Lispro 100 Units/ML 3 ML Vial SUBCUT SCH ×3 (07:34→18:49)
[2020-09-25] MEDS: Loperamide 2 MG Cap PO PRN (19:29)
[2020-09-25] MEDS: Insulin Glarg,Human.Rec.Analog 100 Unit/ML SUBCUT SCH (19:32)
[2020-09-26] MEDS: Pantoprazole 40 MG Tab.CR PO SCH (06:29)
[2020-09-26] MEDS: Levothyroxine 50 MCG Tab PO SCH (06:29)
[2020-09-26] MEDS: Calcium Carbonate 500 MG Tab.Chew PO SCH ×2 (07:53→19:38)
[2020-09-26] MEDS: Sertraline 25 MG Tab PO SCH (07:53)
[2020-09-26] MEDS: Cholecalciferol (Vitamin D3) 25 MCG Tab PO SCH (07:54)
[2020-09-26] MEDS: Multivitamin Tab PO SCH (07:55)
[2020-09-26] MEDS: Amiodarone 200 MG Tab PO SCH (07:55)
[2020-09-26] MEDS: Vitamin E (dl-alpha-tocopherol acetate) 400 Unit Cap PO SCH (07:55)
[2020-09-26] MEDS: Apixaban 5 MG Tab PO SCH ×2 (07:56→19:38)
[2020-09-26] MEDS: atorvaSTATin 10 MG Tab PO SCH (07:56)
[2020-09-26] MEDS: Aspirin 81 MG Tab.EC PO SCH (07:56)
[2020-09-26] MEDS: Allopurinol 100 MG Tab PO SCH (07:56)
[2020-09-26] MEDS: Furosemide 40 MG Tab PO SCH (07:56)
[2020-09-26] MEDS: Insulin Lispro 100 Units/ML 3 ML Vial SUBCUT SCH ×3 (07:57→17:32)
--- NOTE | 2020-09-26 10:57 | PCM.PN ---
- General Info Date of Service: 09/26/20 Functional Status: Reports: Pain Controlled, Tolerating Diet - Review of Systems General: Reports: Weakness, Fatigue HEENT: Reports: No Symptoms Pulmonary: Reports: Shortness of Breath, Cough Cardiovascular: Reports: No Symptoms Gastrointestinal: Reports: No Symptoms Genitourinary: Reports: No Symptoms Musculoskeletal: Reports: No Symptoms Skin: Reports: No Symptoms Neurological: Reports: No Symptoms Psychiatric: Reports: No Symptoms - Patient Data Vitals - Most Recent: Last Vital Signs Temp 96.7 F L 09/26/20 08:00 Pulse 95 09/26/20 08:00 Resp 20 09/26/20 08:00 BP 96/63 09/26/20 08:00 Pulse Ox 94 L 09/26/20 08:00 Weight - Most Recent: 254 lb 4.8 oz Lab Results Last 24 Hours: Laboratory Results - last 24 hr 09/26/20 Range/Units 10:20 SARS CoV-2 RNA Rapid MARYCRUZ Negative (NEGATIVE) Med Orders - Current: Current Medications Allopurinol (Zyloprim) 100 mg PO DAILY [facility] Last Admin: 09/26/20 07:56 Dose: 100 mg Documented by: Amiodarone HCl (Cordarone) 200 mg PO DAILY [facility] Last Admin: 09/26/20 07:55 Dose: 200 mg Documented by: Apixaban (Eliquis) 5 mg PO BID [facility] Last Admin: 09/26/20 07:56 Dose: 5 mg Documented by: Aspirin (Halfprin) 81 mg PO DAILY [facility] Last Admin: 09/26/20 07:56 Dose: 81 mg Documented by: Atorvastatin Calcium (Lipitor) 10 mg PO DAILY [facility] Last Admin: 09/26/20 07:56 Dose: 10 mg Documented by: Calcium Carbonate/Glycine (Tums) 500 mg PO BID [facility] Last Admin: 09/26/20 07:53 Dose: 500 mg Documented by: Cholecalciferol (Vitamin D3) 125 mcg PO DAILY [facility] Last Admin: 09/26/20 07:54 Dose: 125 mcg Documented by: Dextrose/Water (Dextrose 50% In Water) 50 ml IV ASDIRECTED PRN PRN Reason: Hypoglycemia Docusate Sodium (Colace) 100 mg PO BID PRN PRN Reason: Constipation Furosemide (Lasix) 40 mg PO DAILY [facility] Last Admin: 09/26/20 07:56 Dose: 40 mg Documented by: Glucagon (Glucagen) 1 mg IM ASDIRECTED PRN PRN Reason: Hypoglycemia Insulin Glargine (Lantus) 35 unit SUBCUT BEDTIME [facility] Last Admin: 09/25/20 19:32 Dose: 35 units Documented by: Insulin Human Lispro (Humalog) 0 unit SUBCUT TIDMEALS [facility]; Protocol Last Admin: 09/26/20 07:57 Dose: 4 units Documented by: Levothyroxine Sodium (Synthroid) 50 mcg PO ACBREAKFAST [facility] Last Admin: 09/26/20 06:29 Dose: 50 mcg Documented by: Loperamide HCl (Imodium) 2 mg PO DAILY PRN PRN Reason: Diarrhea Last Admin: 09/25/20 19:29 Dose: 2 mg Documented by: Multivitamins/Minerals/Vitamin C (Tab-A-George) 1 tab PO DAILY [facility] Last Admin: 09/26/20 07:55 Dose: 1 tab Documented by: Pantoprazole Sodium (Protonix) 40 mg PO DAILY@0700 [facility] Last Admin: 09/26/20 06:29 Dose: 40 mg Documented by: Sertraline HCl (Zoloft) 50 mg PO DAILY [facility] Last Admin: 09/26/20 07:53 Dose: 50 mg Documented by: Vitamin E (Vitamin E) 400 units PO DAILY [facility] Last Admin: 09/26/20 07:55 Dose: 400 units Documented by: Discontinued Medications Calcium Carbonate/Glycine (Tums) 500 mg PO BID ONE Stop: 09/12/20 14:28 Last Admin: 09/12/20 15:09 Dose: Not Given Documented by: Dextrose/Water (Dextrose 50% In Water) 50 ml IV ASDIRECTED PRN PRN Reason: Hypoglycemia Glucagon (Glucagen) 1 mg IM ASDIRECTED PRN PRN Reason: Hypoglycemia Non-Formulary Medication (Calcium Carb/D3/Magnesium/Zinc [Negrito Mag Zinc + D3]) 1 tab PO DAILY [facility] Potassium Chloride (Klor-Con 10) 20 meq PO BIDMEALS [facility] Last Admin: 09/22/20 08:15 Dose: 20 meq Documented by: - Exam General: Alert, Oriented, Cooperative Lungs: Decreased Breath Sounds Cardiovascular: Regular Rate, Regular Rhythm Extremities: Normal Inspection, No Pedal Edema Peripheral Pulses: 2+: Radial (L), Radial (R), Posterior Tibial (L), Posterior Tibial (R) Skin: Warm, Dry, Intact Psy/Mental Status: Alert, Normal Affect, Normal Mood Sepsis Event Note - Evaluation Sepsis Screening Result: No Definite Risk - Focused Exam Vital Signs: Vital Signs Temp Pulse Resp BP Pulse Ox 09/26/20 08:00 96.7 F L 95 20 96/63 94 L - Problem List Review Problem List Initiated/Reviewed/Updated: Yes - Plan Plan:: 09/12/2020 1200 PLEASE USE THIS NOTE MY DISCHARGE TO THE [facility] TODAY. USE H&P. This patient was admitted to [facility] today for PT strengthening and possible placement with health and social care teacher, that will discuss this tomorrow. The patient has a known pleural effusion with decreased breath sounds on CXR. He has reported since his stay that he does not want any interventions for this. However, today the patient when I discussed this, wanted a ct scan and possible chest tube or interventions. I explained all risk vs benefits to the patient and he has accepted this wanting to be done. The patient during this decision is fully and alert and oriented. Due to the patient drastic change in treatment, I had Jeanette PAN come into the room again with me to discuss this with the patient, I discussed this time this would require a transfer to a higher level facility. He then has denied this to be done. He reports he does not want to be transferred. So, at this time we are not doing a CT scan or further treatment. I did discuss with im that he can change his mind at any time, he voices back understanding of this. Again, the patient is fully alert and oriented and does not want treatment of the pleural effusion of further evaluation of this. The patient today has been able to get up with limited assistance. His labs are baseline. The patient has been weaned of oxygen currently, and is 91% RA. He reports he does not feel short of breath. Will admit to [facility] for PT. 09/26/2020 0955am Patient is a swing bed. Today is day 15 and due for recertify. Patient reports having a cough chronically, becoming more frequent. He does report over the past two weeks, he has felt a little more weak and fatigued. Patient continues to chronically have decreased breath sounds due to pleural effusion. Did a COVID test today, its negative. RN reports that the patient oxygen has dropped to 92% on 4L NC and was short of breath, she increased to 5L NC and saturation was 94%. RN reports that patient has been a little more weak today and has appeared more short of breath and coughing more with ambualtion to the chair from bed. I will order labs and a CXR. Will continue swing bed admit. 09/26/2020 2200 I have reviewed patient CXR, complete opacification of the left hemithorax similar to the prior study. Assoicated small stable right pleural effusion. I reviewed patient labs and they are very similar to previous labs drawn a few days ago. The patient COVID test is negative. However, there is still a risk this patient may have COVID. As he has had contact with someone COVID positive. He also has new symptoms of more frequent cough and increased shortness of breath, This could be associated with his ongoing lung hemithorax/pleural effusion, however due to symptoms COVID is still a possibility. Even though his labs are similar to previous collection, they are consistent with COVID labs with hyponatremia, elevated AST, elevated Alkaline phosphate, elevated CRP. I did not perform a d-dimer, because has refused CT scans. I called and spoke to Vanda about this patient having a negative COVID, but his symptoms, contact, and labs. At this time, will order a repeat COVID to be sent to the [facility] department, and move patient to a COVID room with COVID precautions.
[2020-09-26] MEDS ORDERED: Albuterol/Ipratropium 3.0-0.5 MG/3 ML Neb Soln NEB PRN (17:15)
[2020-09-26] MEDS: Loperamide 2 MG Cap PO PRN (19:42)
[2020-09-26] MEDS: Insulin Glarg,Human.Rec.Analog 100 Unit/ML SUBCUT SCH (20:26)
[2020-09-27] MEDS: Levothyroxine 50 MCG Tab PO SCH (06:55)
[2020-09-27] MEDS: Pantoprazole 40 MG Tab.CR PO SCH (06:55)
[2020-09-27] MEDS: Cholecalciferol (Vitamin D3) 25 MCG Tab PO SCH (07:47)
[2020-09-27] MEDS: Vitamin E (dl-alpha-tocopherol acetate) 400 Unit Cap PO SCH (07:48)
[2020-09-27] MEDS: Aspirin 81 MG Tab.EC PO SCH (07:48)
[2020-09-27] MEDS: Apixaban 5 MG Tab PO SCH ×2 (07:48→19:52)
[2020-09-27] MEDS: Furosemide 40 MG Tab PO SCH (07:49)
[2020-09-27] MEDS: Multivitamin Tab PO SCH (07:49)
[2020-09-27] MEDS: Allopurinol 100 MG Tab PO SCH (07:49)
[2020-09-27] MEDS: Amiodarone 200 MG Tab PO SCH (07:49)
[2020-09-27] MEDS: Sertraline 25 MG Tab PO SCH (07:52)
[2020-09-27] MEDS: Calcium Carbonate 500 MG Tab.Chew PO SCH ×2 (07:53→19:52)
[2020-09-27] MEDS: atorvaSTATin 10 MG Tab PO SCH (07:53)
[2020-09-27] MEDS: Insulin Lispro 100 Units/ML 3 ML Vial SUBCUT SCH ×3 (08:33→17:42)
[2020-09-27] MEDS: Insulin Glarg,Human.Rec.Analog 100 Unit/ML SUBCUT SCH (20:24)
[2020-09-28] MEDS: Pantoprazole 40 MG Tab.CR PO SCH (06:03)
[2020-09-28] MEDS: Levothyroxine 50 MCG Tab PO SCH (06:03)
[2020-09-28] MEDS: Aspirin 81 MG Tab.EC PO SCH (07:41)
[2020-09-28] MEDS: Sertraline 25 MG Tab PO SCH (07:41)
[2020-09-28] MEDS: Insulin Lispro 100 Units/ML 3 ML Vial SUBCUT SCH ×3 (07:41→18:03)
[2020-09-28] MEDS: Furosemide 40 MG Tab PO SCH (07:42)
[2020-09-28] MEDS: Apixaban 5 MG Tab PO SCH ×2 (07:42→19:49)
[2020-09-28] MEDS: Cholecalciferol (Vitamin D3) 25 MCG Tab PO SCH (07:42)
[2020-09-28] MEDS: atorvaSTATin 10 MG Tab PO SCH (07:42)
[2020-09-28] MEDS: Amiodarone 200 MG Tab PO SCH (07:42)
[2020-09-28] MEDS: Vitamin E (dl-alpha-tocopherol acetate) 400 Unit Cap PO SCH (07:42)
[2020-09-28] MEDS: Multivitamin Tab PO SCH (07:43)
[2020-09-28] MEDS: Calcium Carbonate 500 MG Tab.Chew PO SCH ×2 (07:43→19:49)
[2020-09-28] MEDS: Allopurinol 100 MG Tab PO SCH (07:43)
[2020-09-28] MEDS: Insulin Glarg,Human.Rec.Analog 100 Unit/ML SUBCUT SCH (19:49)
[2020-09-29] MEDS: Apixaban 5 MG Tab PO SCH ×2 (07:43→19:38)
[2020-09-29] MEDS: Cholecalciferol (Vitamin D3) 25 MCG Tab PO SCH (07:43)
[2020-09-29] MEDS: Allopurinol 100 MG Tab PO SCH (07:43)
[2020-09-29] MEDS: Multivitamin Tab PO SCH (07:43)
[2020-09-29] MEDS: Amiodarone 200 MG Tab PO SCH (07:43)
[2020-09-29] MEDS: Vitamin E (dl-alpha-tocopherol acetate) 400 Unit Cap PO SCH (07:43)
[2020-09-29] MEDS: Aspirin 81 MG Tab.EC PO SCH (07:43)
[2020-09-29] MEDS: Pantoprazole 40 MG Tab.CR PO SCH (07:43)
[2020-09-29] MEDS: Levothyroxine 50 MCG Tab PO SCH (07:43)
[2020-09-29] MEDS: Furosemide 40 MG Tab PO SCH (07:43)
[2020-09-29] MEDS: atorvaSTATin 10 MG Tab PO SCH (07:43)
[2020-09-29] MEDS: Calcium Carbonate 500 MG Tab.Chew PO SCH ×2 (07:43→19:38)
[2020-09-29] MEDS: Sertraline 25 MG Tab PO SCH (07:44)
[2020-09-29] MEDS: Insulin Lispro 100 Units/ML 3 ML Vial SUBCUT SCH ×3 (07:48→17:54)
[2020-09-29] MEDS: Insulin Glarg,Human.Rec.Analog 100 Unit/ML SUBCUT SCH (19:40)
[2020-09-30] MEDS: Pantoprazole 40 MG Tab.CR PO SCH (06:28)
[2020-09-30] MEDS: Levothyroxine 50 MCG Tab PO SCH (06:28)
[2020-09-30] MEDS: Calcium Carbonate 500 MG Tab.Chew PO SCH ×2 (07:49→19:32)
[2020-09-30] MEDS: Furosemide 40 MG Tab PO SCH (07:49)
[2020-09-30] MEDS: atorvaSTATin 10 MG Tab PO SCH (07:49)
[2020-09-30] MEDS: Apixaban 5 MG Tab PO SCH ×2 (07:49→19:32)
[2020-09-30] MEDS: Allopurinol 100 MG Tab PO SCH (07:49)
[2020-09-30] MEDS: Amiodarone 200 MG Tab PO SCH (07:49)
[2020-09-30] MEDS: Cholecalciferol (Vitamin D3) 25 MCG Tab PO SCH (07:49)
[2020-09-30] MEDS: Vitamin E (dl-alpha-tocopherol acetate) 400 Unit Cap PO SCH (07:49)
[2020-09-30] MEDS: Sertraline 25 MG Tab PO SCH (07:49)
[2020-09-30] MEDS: Aspirin 81 MG Tab.EC PO SCH (07:49)
[2020-09-30] MEDS: Multivitamin Tab PO SCH (07:49)
[2020-09-30] MEDS: Insulin Lispro 100 Units/ML 3 ML Vial SUBCUT SCH ×3 (07:50→17:16)
[2020-09-30] MEDS: Insulin Glarg,Human.Rec.Analog 100 Unit/ML SUBCUT SCH (19:33)
[2020-10-01] MEDS: Pantoprazole 40 MG Tab.CR PO SCH (06:39)
[2020-10-01] MEDS: Levothyroxine 50 MCG Tab PO SCH (06:39)
[2020-10-01] MEDS: Insulin Lispro 100 Units/ML 3 ML Vial SUBCUT SCH (07:42)
[2020-10-01] MEDS: Allopurinol 100 MG Tab PO SCH (07:48)
[2020-10-01] MEDS: Vitamin E (dl-alpha-tocopherol acetate) 400 Unit Cap PO SCH (07:48)
[2020-10-01] MEDS: atorvaSTATin 10 MG Tab PO SCH (07:48)
[2020-10-01] MEDS: Apixaban 5 MG Tab PO SCH (07:48)
[2020-10-01] MEDS: Amiodarone 200 MG Tab PO SCH (07:48)
[2020-10-01] MEDS: Aspirin 81 MG Tab.EC PO SCH (07:49)
[2020-10-01] MEDS: Cholecalciferol (Vitamin D3) 25 MCG Tab PO SCH (07:49)
[2020-10-01] MEDS: Furosemide 40 MG Tab PO SCH (07:49)
[2020-10-01] MEDS: Multivitamin Tab PO SCH (07:49)
[2020-10-01] MEDS: Sertraline 25 MG Tab PO SCH (07:50)
[2020-10-01] MEDS: Calcium Carbonate 500 MG Tab.Chew PO SCH (07:51)
[2020-10-01 07:54] VITALS: BP 114/62; PULSE 98
--- NOTE | 2020-10-01 11:11 | PCM.DCSUM1 ---
Discharge Summary - Hospital Course Free Text/Narrative:: Anton is a 75 year old male who was admitted to swing bed to await group home placement due to failure to thrive at home. Had initially been in the hospital after cardiogenic shock, cardioversion and atrial fib. Had been here in swing bed after a long stay at [place]. He had been in swing bed with therapy and hoped to return home with family as caregivers. Continued to struggle with weakness, medication compliance and was not compliant with home health. [place] [facility] [place] and transferred to swing bed for ongoing therapy. Diagnosis: Stroke: Yes Modified [place] Scale: No Symptoms at All Modified Jacquie Scale Score: 0 - Discharge Data Discharge Date: 10/01/20 Discharge Disposition: DC/Tfer to SNF 03 Condition: Fair - Referral to Home Health Primary Care Physician: Brett Leonard PA-C - Discharge Diagnosis/Problem(s) (1) Acute on chronic diastolic (congestive) heart failure SNOMED Code(s): 464156388, 964201107 ICD Code: I50.33 - ACUTE ON CHRONIC DIASTOLIC (CONGESTIVE) HEART FAILURE Status: Acute Priority: High (2) Acute on chronic systolic (congestive) heart failure SNOMED Code(s): 910997745, 230930394 ICD Code: I50.23 - ACUTE ON CHRONIC SYSTOLIC (CONGESTIVE) HEART FAILURE Status: Acute Priority: High (3) Weakness SNOMED Code(s): 82853992 ICD Code: R53.1 - WEAKNESS Status: Acute Priority: High (4) Diabetes type 2, uncontrolled SNOMED Code(s): 487804128, 258703334 ICD Code: E11.65 - TYPE 2 DIABETES MELLITUS WITH HYPERGLYCEMIA Status: Chronic Priority: High Qualifiers: Coma presence: without coma (5) Hyperlipidemia SNOMED Code(s): 70006608 ICD Code: E78.5 - HYPERLIPIDEMIA, UNSPECIFIED Status: Chronic Priority: High (6) Hypothyroidism SNOMED Code(s): 68977423 ICD Code: E03.9 - HYPOTHYROIDISM, UNSPECIFIED Status: Chronic Priority: High - Patient Summary/Data Complications: none Consults: Consultations 09/12/20 12:57 PT Evaluation and Treatment [CONS] Routine Hospital Course: Patient transferred to swing bed for ongoing therapy for weakness, social service consult for group home placement. Patient has had intermittent issues with shortness of breath, edema and anorexia. Labs have been done, stable in comparison to prior labs. Chest xray done and noted to have large pleural effusion. Initially patient had discussed possibly having thoracentesis done but did not want to be transferred and opted for no intervention. Concerns with possible COVID so testing was done which was negative. Arrangements to transfer to [place] due to lack of availability for care locally. - Patient Instructions Diet: Diabetic Diet Activity: As Tolerated - Discharge Plan *PRESCRIPTION DRUG MONITORING PROGRAM REVIEWED*: No *COPY OF PRESCRIPTION DRUG MONITORING REPORT IN PATIENT ELISABETH: No Prescriptions/Med Rec: Insulin Lispro [HumaLOG] See Protocol SUBCUT TIDMEALS #1 vial Home Medications: Home Meds Allopurinol [Zyloprim] 100 mg PO DAILY 04/09/15 [History] Aspirin [Halfprin] 81 mg PO DAILY 04/09/15 [History] Furosemide [Lasix] 40 mg PO DAILY 04/09/15 [History] Levothyroxine [Synthroid] 50 mcg PO DAILY 04/09/15 [History] atorvaSTATin [Lipitor] 10 mg PO DAILY 04/09/15 [History] Calcium Carb/D3/Magnesium/Zinc [Negrito Mag Zinc + D3] 1 tab PO BID 07/29/20 [History] Cholecalciferol (Vitamin D3) [Vitamin D3] 5,000 unit PO DAILY 07/29/20 [History] Multivitamin [Daily Multiple Vitamin] 1 each PO DAILY 07/29/20 [History] Vitamin E 400 unit PO DAILY 07/29/20 [History] Amiodarone [Cordarone] 200 mg PO DAILY #30 tablet 08/25/20 [Rx] Apixaban [Eliquis] 5 mg PO BID #60 tablet 08/25/20 [Rx] Insulin Glarg,Human.Rec.Analog [Lantus] 35 unit SUBCUT BEDTIME #1 pen 08/25/20 [Rx] Pantoprazole [ProTONIX] 40 mg PO DAILY@0700 #30 tab.cr 08/25/20 [Rx] Sertraline [Zoloft] 50 mg PO DAILY #30 tablet 08/25/20 [Rx] Acetaminophen [Tylenol] 650 mg PO Q4H PRN 09/12/20 [History] Loperamide [Imodium] 2 mg PO DAILY PRN 09/12/20 [History] Insulin Lispro [HumaLOG] See Protocol SUBCUT TIDMEALS #1 vial 10/01/20 [Rx] - Discharge Summary/Plan Comment DC Time >30 min.: No - General Info Date of Service: 10/01/20 Admission Dx/Problem (Free Text: Failure to Thrive Functional Status: Reports: Pain Controlled, Tolerating Diet, Ambulating - Review of Systems General: Reports: Fever, Weakness, Fatigue, Malaise HEENT: Reports: No Symptoms Pulmonary: Reports: Shortness of Breath Cardiovascular: Reports: Edema. Denies: Chest Pain, Lightheadedness Gastrointestinal: Reports: Decreased Appetite, Nausea. Denies: Abdominal Pain, Vomiting Genitourinary: Reports: No Symptoms Musculoskeletal: Reports: No Symptoms Skin: Reports: No Symptoms Neurological: Reports: Weakness - Patient Data Vitals - Most Recent: Last Vital Signs Temp 97.3 F 10/01/20 07:54 Pulse 98 10/01/20 07:54 Resp 20 10/01/20 07:54 BP 114/62 10/01/20 07:54 Pulse Ox 93 L 10/01/20 07:54 Weight - Most Recent: 254 lb 4.8 oz Lab Results - Last 24 hrs: Laboratory Results - last 24 hr 09/30/20 09/30/20 09/30/20 Range/Units 11:28 17:13 19:32 POC Glucose 146 H 146 H 142 H (75-105) mg/dl SARS CoV-2 RNA Rapid MARYCRUZ (NEGATIVE) 10/01/20 10/01/20 Range/Units 06:55 07:39 POC Glucose 136 H (75-105) mg/dl SARS CoV-2 RNA Rapid MARYCRUZ Negative (NEGATIVE) Med Orders - Current: Current Medications Albuterol/Ipratropium (Duoneb 3.0-0.5 Mg/3 Ml) 3 ml NEB TID PRN PRN Reason: Dyspnea Last Admin: 09/26/20 17:44 Dose: 3 ml Documented by: Allopurinol (Zyloprim) 100 mg PO DAILY [facility] Last Admin: 10/01/20 07:48 Dose: 100 mg Documented by: Amiodarone HCl (Cordarone) 200 mg PO DAILY [facility] Last Admin: 10/01/20 07:48 Dose: 200 mg Documented by: Apixaban (Eliquis) 5 mg PO BID [facility] Last Admin: 10/01/20 07:48 Dose: 5 mg Documented by: Aspirin (Halfprin) 81 mg PO DAILY [facility] Last Admin: 10/01/20 07:49 Dose: 81 mg Documented by: Atorvastatin Calcium (Lipitor) 10 mg PO DAILY [facility] Last Admin: 10/01/20 07:48 Dose: 10 mg Documented by: Calcium Carbonate/Glycine (Tums) 500 mg PO BID [facility] Last Admin: 10/01/20 07:51 Dose: 500 mg Documented by: Cholecalciferol (Vitamin D3) 125 mcg PO DAILY [facility] Last Admin: 10/01/20 07:49 Dose: 125 mcg Documented by: Dextrose/Water (Dextrose 50% In Water) 50 ml IV ASDIRECTED PRN PRN Reason: Hypoglycemia Docusate Sodium (Colace) 100 mg PO BID PRN PRN Reason: Constipation Furosemide (Lasix) 40 mg PO DAILY [facility] Last Admin: 10/01/20 07:49 Dose: 40 mg Documented by: Glucagon (Glucagen) 1 mg IM ASDIRECTED PRN PRN Reason: Hypoglycemia Insulin Glargine (Lantus) 35 unit SUBCUT BEDTIME [facility] Last Admin: 09/30/20 19:33 Dose: 35 units Documented by: Insulin Human Lispro (Humalog) 0 unit SUBCUT TIDMEALS [facility]; Protocol Last Admin: 10/01/20 07:42 Dose: Not Given Documented by: Levothyroxine Sodium (Synthroid) 50 mcg PO ACBREAKFAST [facility] Last Admin: 10/01/20 06:39 Dose: 50 mcg Documented by: Loperamide HCl (Imodium) 2 mg PO DAILY PRN PRN Reason: Diarrhea Last Admin: 09/26/20 19:42 Dose: 2 mg Documented by: Multivitamins/Minerals/Vitamin C (Tab-A-George) 1 tab PO DAILY [facility] Last Admin: 10/01/20 07:49 Dose: 1 tab Documented by: Pantoprazole Sodium (Protonix) 40 mg PO DAILY@0700 [facility] Last Admin: 10/01/20 06:39 Dose: 40 mg Documented by: Sertraline HCl (Zoloft) 50 mg PO DAILY [facility] Last Admin: 10/01/20 07:50 Dose: 50 mg Documented by: Vitamin E (Vitamin E) 400 units PO DAILY [facility] Last Admin: 10/01/20 07:48 Dose: 400 units Documented by: Discontinued Medications Calcium Carbonate/Glycine (Tums) 500 mg PO BID ONE Stop: 09/12/20 14:28 Last Admin: 09/12/20 15:09 Dose: Not Given Documented by: Dextrose/Water (Dextrose 50% In Water) 50 ml IV ASDIRECTED PRN PRN Reason: Hypoglycemia Glucagon (Glucagen) 1 mg IM ASDIRECTED PRN PRN Reason: Hypoglycemia Non-Formulary Medication (Calcium Carb/D3/Magnesium/Zinc [Negrito Mag Zinc + D3]) 1 tab PO DAILY [facility] Potassium Chloride (Klor-Con 10) 20 meq PO BIDMEALS [facility] Last Admin: 09/22/20 08:15 Dose: 20 meq Documented by: - Exam General: Reports: Alert, Oriented HEENT: Reports: Mucous Membr. Moist/[place]: Reports: Supple Lungs: Reports: Decreased Breath Sounds Cardiovascular: Reports: Irregular Rhythm GI/Abdominal Exam: Normal Bowel Sounds, Soft, Non-Tender Extremities: Normal Inspection, No Pedal Edema Skin: Reports: Warm, Dry Neurological: Reports: No New Focal Deficit
== END 2020-10-01 10:00 | disposition home or self-care (01) | DRG 948 ==
LOC: CC.MS 10:35 → UNDOADMIN 10:35 → CC.MS 12:42
PROVIDERS: ADMIT Nurse Practitioner; ATTEND Family Medicine
DX: R53.1 Weakness (principal); E87.1 Hypo-osmolality and hyponatremia; I50.42 Chronic combined systolic (congestive) and diastolic (congestive) heart failure; E11.65 Type 2 diabetes mellitus with hyperglycemia; E78.5 Hyperlipidemia, unspecified; E03.9 Hypothyroidism, unspecified; Z20.828 Contact with and (suspected) exposure to other viral communicable diseases; R74.01 Elevation of levels of liver transaminase levels; Z79.82 Long term (current) use of aspirin; Z79.899 Other long term (current) drug therapy; Z79.890 Hormone replacement therapy; Z79.01 Long term (current) use of anticoagulants; Z79.4 Long term (current) use of insulin
CPT/HCPCS: 36415; 71046; 80053; 82962; 83880; 85025; 86140; 94640; 97110-GP; 97530-GP; A9270-GY; J1815-GY; J7620-GY; U0002